=== PATIENT | female | born 1950 | race Caucasian/White ===

== ENCOUNTER 2017-03-20 20:10 | Emergency (ER) | payer OTHER ==
[2017-03-20] MEDS ORDERED: HYDROmorphone 1 MG/ML SYRINGE IM STA (20:19)
[2017-03-20] MEDS ORDERED: oxyCODONE/ACET 5/325 Prepack 4 PO STA (20:19)
[2017-03-20] MEDS ORDERED: TETANUS/DIPHTHERIA/PERTUSSIS 0.5 ML SYRINGE IM ONE (20:19)
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
[2017-03-20] MEDS ORDERED: oxyCODONE/ACET 5/325 Prepack 4 PO ONE (20:29)
[2017-03-20] MEDS ORDERED: HYDROmorphone 1 MG/ML SYRINGE ONE (20:29)
[2017-03-20 20:52] VITALS: BP 142/81
== END 2017-03-20 20:45 | disposition home or self-care (01) ==
LOC: ED 20:10
DX: T23.192A Burn of first degree of multiple sites of left wrist and hand, initial encounter (principal); T31.0 Burns involving less than 10% of body surface; X15.8XXA Contact with other hot household appliances, initial encounter; Y92.009 Unspecified place in unspecified non-institutional (private) residence as the place of occurrence of the external cause
CPT/HCPCS: 96372; 99282; 99283; J1170

== ENCOUNTER 2017-08-26 08:21 | Outpatient (CLI) | payer MEDICARE ==
[2017-08-26 13:08] LABS: ALBUMIN 4.1 g/dL (3.2-5.5); ALBUMIN/GLOBULIN RATIO 1.3 (1.0-2.2); BILIRUBIN,TOTAL 0.9 mg/dL (0.2-1.0); CALCIUM 8.9 mg/dL (8.5-10.3); CREATININE 0.8 mg/dL (0.4-1.0); TOTAL PROTEIN 7.2 g/dL (6.7-8.2)
[2017-08-26 13:11] LABS: HB2 TOTAL 15.6 g/dL; HEMOGLOBIN A1C 0.71 g/dL; HEMOGLOBIN A1C % 6.3 % (4.6-6.2)
== END 2017-08-26 08:22 | disposition home or self-care (01) ==
LOC: LAB.WCP 08:21
PROVIDERS: ATTEND Family Medicine
DX: D12.6 Benign neoplasm of colon, unspecified (principal); E78.5 Hyperlipidemia, unspecified; K50.90 Crohn's disease, unspecified, without complications; F98.8 Other specified behavioral and emotional disorders with onset usually occurring in childhood and adolescence; R73.03 Prediabetes
CPT/HCPCS: 36415; 80053; 83036

== ENCOUNTER 2018-03-25 14:35 | Outpatient (CLI) | payer MEDICARE ==
--- NOTE | 2018-03-28 09:30 | DEXA Report ---
Reason: ASYMPTOMATIC POSTMENOPAUSAL STATUS Procedure Date: 03/25/2018 Accession Number: [id number] / [id number] Procedure: DEX - Dexa Spine and/or Hip CPT Code: FULL RESULT: EXAM: Dexa Spine and/or Hip DATE: 03/25/2018 3:15 PM CLINICAL HISTORY: ASYMPTOMATIC POSTMENOPAUSAL STATUS TECHNIQUE: Dual energy x-ray absorptiometry (DXA) was performed on a [employer] System. Regions measured are the AP Spine, femoral neck, and if needed forearm. COMPARISON: None. In accordance with the International Society for Clinical Densitometry (ISCD) guidelines, data from previous exams may be reanalyzed using current recommendations and techniques. This is done to allow a more accurate basis for comparison with the current study. FINDINGS: The data for the lumbar spine is as follows: BMD (g/cm/cm) T-SCORE Z-SCORE REGION L1 0.960 -1.4 -0.7 L2 1.194 -0.1 0.7 L3 1.094 -0.9 -0.1 L4 1.159 -0.3 0.4 TOTAL 1.105 -0.6 0.1 NOTE: All evaluable vertebrae are used for classification The data for the hip is as follows: BMD (g/cm/cm) T-SCORE Z-SCORE REGION Neck 0.929 -0.8 0.2 TOTAL 1.041 0.3 0.9 NOTE: The femoral neck or total proximal femur, whichever is lowest, is used for classification. IMPRESSION: THE WHO CLASSIFICATION BASED ON THE INTERNATIONAL REFERENCE STANDARD IS NORMAL. THE FRACTURE RISK IS NOT INCREASED. RECOMMENDATION: Patients with diagnosis of osteoporosis or osteopenia should have regular bone mineral density assessment. For those eligible for Medicare, routine testing is allowed once every 2 years. Testing frequency can be increased for patients who have rapidly progressing disease or for those who are receiving medical therapy to restore bone mass. COMMENT: World Health Organization (WHO) definitions for osteoporosis and osteopenia: NORMAL BMD: T-score at -1.0 or higher, fracture risk is low OSTEOPENIA BMD: T-score between -1.0 and -2.5, fracture risk is increased. OSTEOPOROSIS BMD: T-score at -2.5 or lower, fracture risk is high. National Osteoporosis Foundation recommends: 1. Obtain adequate dietary calcium (at least 1200 mg per day) and vitamin D (400-800 international units per day). 2. Participate, as appropriate, in regular weightbearing and muscle-strengthening exercise. 3. Avoid tobacco use and reduce alcohol and caffeine intake. 4. For more detailed information see the website at www.NOF.org.
== END 2018-03-25 14:36 | disposition home or self-care (01) ==
LOC: DI 14:35
PROVIDERS: ATTEND Family Medicine
DX: Z78.0 Asymptomatic menopausal state (principal)
CPT/HCPCS: 77080

== ENCOUNTER 2018-10-27 08:00 | Outpatient (CLI) | payer MEDICARE ==
[2018-10-27 12:32] LABS: BASOPHILS # (AUTO) 0.1 10^3/uL (0.0-0.1); BASOPHILS % (AUTO) 0.5 %; EOSINOPHILS # (AUTO) 0.2 10^3/uL (0.0-0.7); EOSINOPHILS % (AUTO) 1.8 %; HGB - HEMOGLOBIN 13.6 g/dL (12.0-16.0); LYMPHOCYTES # (AUTO) 2.9 10^3/uL (1.5-3.5); LYMPHOCYTES % (AUTO) 30.6 %; MEAN CORPUSCULAR HEMOGLOBIN 29.9 pg (27.0-31.0); MEAN CORPUSCULAR HGB CONC 32.5 g/dL (32.0-36.0); MEAN CORPUSCULAR VOLUME 91.9 fL (81.0-99.0); MEAN PLATELET VOLUME 11.3 fL (7.9-10.8); MONOCYTES # (AUTO) 0.5 10^3/uL (0.0-1.0); MONOCYTES % (AUTO) 5.3 %; NEUTROPHILS # (AUTO) 5.9 10^3/uL (1.5-6.6); NEUTROPHILS % (AUTO) 61.5 %; PLT - PLATELET COUNT 330 10^3/uL (130-450); RED BLOOD COUNT 4.55 10^6/uL (4.20-5.40); RED CELL DISTRIBUTION WIDTH 12.5 % (12.0-15.0); WHITE BLOOD COUNT 9.6 x10^3/uL (4.8-10.8)
[2018-10-27 12:48] LABS: ALBUMIN 4.2 g/dL (3.2-5.5); ALBUMIN/GLOBULIN RATIO 1.3 (1.0-2.2); BILIRUBIN,TOTAL 0.7 mg/dL (0.2-1.0); CALCIUM 9.3 mg/dL (8.5-10.3); CREATININE 0.8 mg/dL (0.4-1.0); TOTAL PROTEIN 7.5 g/dL (6.7-8.2)
[2018-10-27 12:52] LABS: HB2 TOTAL 14.1 g/dL; HEMOGLOBIN A1C 0.69 g/dL; HEMOGLOBIN A1C % 6.6 % (4.6-6.2)
== END 2018-10-27 08:01 | disposition home or self-care (01) ==
LOC: LAB.WCP 08:00
PROVIDERS: ATTEND Family Medicine
DX: I10 Essential (primary) hypertension (principal); K50.90 Crohn's disease, unspecified, without complications; K76.0 Fatty (change of) liver, not elsewhere classified; R73.09 Other abnormal glucose
CPT/HCPCS: 36415; 80053; 82043; 83036; 84443; 85025

== ENCOUNTER 2018-12-02 13:58 | Emergency (ER) | payer MEDICARE ==
[2018-12-02] MEDS ORDERED: ERYTHROMYCIN OPHTH OINT 1 GM TUBE RIGHTEYE STA (15:49)
--- NOTE | 2018-12-02 15:57 | ED Physician Documentation ---
PD HPI OPHTHO - Stated complaint Stated Complaint: RT EYE PX - Chief complaint Chief Complaint: Heent - History obtained from History obtained from: Patient - History of Present Illness Timing - onset: How many hours ago (7) Timing - details: Still present Location: Right Associated symptoms: Decreased vision Contributing factors: Wears glasses Similar symptoms before: Has not had sx before - Additional information Additional information: The patient is a 67-year-old female who presents with pain in her right eye. The pain started about 8 AM today when she awoke. It has persisted throughout the day. She denies any traumatic injury. She denies headache. She denies nausea or vomiting. She normally wears glasses. She reports decreased vision in the right eye compared to usual. The pain is worse with movement of her eye. 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 - Present Medications Home Medications: Ambulatory Orders Medication Instructions Recorded Confirmed Methylphenidate HCl 40 mg ORAL DAILY 01/02/14 04/29/17 [Methylphenidate ER] Trazodone HCl 100 mg ORAL DAILY 01/02/14 04/29/17 Oxycodone HCl/Acetaminophen 1 - 2 tab PO Q4H PRN #15 tablet 03/20/17 04/29/17 [Percocet 5-325 mg Tablet] Cyclobenzaprine [Flexeril] 10 mg PO TID PRN #20 tablet 04/29/17 Meloxicam [Mobic] 15 mg PO DAILY PRN #20 tablet 04/29/17 metFORMIN [Glucophage] DAILY 04/29/17 Hydrocodone/Acetaminophen 1 - 2 each PO Q6H PRN #14 tablet 12/02/18 [Hydrocodon-Acetaminophen 5-325] Ketorolac 0.45% Ophth Drops 1 drops RIGHTEYE TID #1 bottle 12/02/18 [Acuvail] - Allergies Allergies/Adverse Reactions: Allergies Allergy/AdvReac Type Severity Reaction Status Date / Time Iodinated Contrast Media Allergy Hives Verified 12/02/18 14:05 [Iodinated Contrast Media - IV Dye] Sulfa (Sulfonamide Allergy Unknown Verified 12/02/18 14:05 Antibiotics) - Social History Does the pt smoke?: No Smoking Status: Never smoker Does the pt drink ETOH?: No Does the pt have substance abuse?: No - Immunizations Immunizations are current?: Yes - POLST Patient has POLST: No PD ED PE NORMAL - Vitals Vital signs reviewed: Yes (Borderline hypertension.) - General General: Alert and oriented X 3, Well developed/nourished - HEENT HEENT: Atraumatic, PERRL, EOMI, Other (Visual acuity in the right eye was initially reported as able to count fingers only. After administration of Ophthaine, the patient was able to visualize more clearly, and the pain completely resolved. Fluorescein stain and slit lamp exam reveals corneal abrasion of the cornea right across the pupil. Tonometry of the right eye reveals normal intraocular pressure of 20.) - Neck Neck: Supple, no meningeal sign, No adenopathy - Cardiac Cardiac: RRR - Respiratory Respiratory: No respiratory distress, Clear bilaterally - Derm Derm: No rash - Neuro Neuro: Alert and oriented X 3, No motor deficit, Normal speech Results - Vitals Vitals: Oxygen O2 Source Room air PD MEDICAL DECISION MAKING - ED course Complexity details: re-evaluated patient, considered differential, d/w patient ED course: The patient's presentation is significant for corneal abrasion of the right eye. With normal intraocular pressure acute angle closure glaucoma is unlikely. There is no foreign body detected on slit-lamp exam. I do not see evidence of iritis or uveitis. Treatment in the emergency department included administration of erythromycin ophthalmic ointment. She is being discharged with prescriptions for ketorolac ophthalmic suspension, and Vicodin 10 tablets. I discussed with her the expected course of injury, symptomatic treatment and outpatient follow-up, as well as potentially worrisome signs or symptoms that should prompt reevaluation in the emergency department. Departure - Departure Disposition: 01 Home, Self Care Clinical Impression: Corneal abrasion, right Qualifiers: Encounter type: initial encounter Qualified Code(s): S05.01XA - Injury of conjunctiva and corneal abrasion without foreign body, right eye, initial encounter Condition: Stable Instructions: ED Eye Injury Corneal Abrasion Prescriptions: Hydrocodone/Acetaminophen [Hydrocodon-Acetaminophen 5-325] 1 - 2 each PO Q6H PRN #14 tablet PRN Reason: pain Ketorolac 0.45% Ophth Drops [Acuvail] 1 drops RIGHTEYE TID #1 bottle Comments: Use ketorolac ophthalmic drops in your right eye 3 times daily. You can use Vicodin as prescribed if needed for pain. Follow-up with your field technical support consultant within 1 week. Call to schedule an appointment. Return to the emergency department if you develop increasing pain in your eye, decreasing visual acuity, or persistent vomiting, or otherwise worsening symptoms. Discharge Date/Time: 12/02/18 16:04
[2018-12-02 16:05] VITALS: BP 130/90
== END 2018-12-02 16:04 | disposition home or self-care (01) ==
LOC: ED 13:58
DX: S05.01XA Injury of conjunctiva and corneal abrasion without foreign body, right eye, initial encounter (principal); X58.XXXA Exposure to other specified factors, initial encounter; E11.9 Type 2 diabetes mellitus without complications; Z79.84 Long term (current) use of oral hypoglycemic drugs
CPT/HCPCS: 99282; 99284; J3490

== ENCOUNTER 2019-05-31 10:30 | Outpatient (CLI) | payer MEDICARE ==
[2019-05-31 18:36] LABS: CALCIUM 9.1 mg/dL (8.5-10.3); CREATININE 0.8 mg/dL (0.4-1.0)
[2019-05-31 18:45] LABS: HB2 TOTAL 14.2 g/dL; HEMOGLOBIN A1C 0.67 g/dL; HEMOGLOBIN A1C % 6.5 % (4.6-6.2)
== END 2019-05-31 23:59 | disposition home or self-care (01) ==
LOC: LAB.WCP 10:30
PROVIDERS: ATTEND Family Medicine
DX: R73.9 Hyperglycemia, unspecified (principal)
CPT/HCPCS: 36415; 80048; 83036

== ENCOUNTER 2019-06-06 14:15 | Outpatient (CLI) | payer MEDICARE ==
--- NOTE | 2019-06-06 15:33 | XRAY Report ---
Reason: COUGH Procedure Date: 06/06/2019 Accession Number: [id number] / [id number] Procedure: WCP - Chest 2 View X-Ray CPT Code: 65907 Final Report FULL RESULT: EXAM: CHEST RADIOGRAPHY EXAM DATE: 06/06/2019 02:15 PM. CLINICAL HISTORY: Cough, congestion and fever. COMPARISON: None. TECHNIQUE: 2 views. FINDINGS: Lungs/Pleura: No focal opacities evident. No pleural effusion. No pneumothorax. Normal volumes. Mediastinum: Heart and mediastinal contours are unremarkable. Other: None. IMPRESSION: Normal 2-view chest radiography. [facility]
== END 2019-06-06 23:59 | disposition home or self-care (01) ==
LOC: DI.WCP 14:15
PROVIDERS: ATTEND Family Medicine
DX: R05 Cough (principal)
CPT/HCPCS: 71046

== ENCOUNTER 2019-06-13 08:59 | Outpatient (CLI) | payer MEDICARE ==
[~2019-06-13 08:59] MED LIST: ALBUTEROL NEB 2.5 MG/3 ML INH ONE
== END 2019-06-13 09:00 | disposition home or self-care (01) ==
LOC: RT 08:59
PROVIDERS: ATTEND Family Medicine
DX: R05 Cough (principal)
CPT/HCPCS: 94010

== ENCOUNTER 2019-10-04 08:00 | Outpatient (CLI) | payer MEDICARE ==
[2019-10-12 00:21] LABS: STONE WEIGHT 0.001 g
== END 2019-10-04 23:59 | disposition home or self-care (01) ==
LOC: LAB.R 08:00
PROVIDERS: ATTEND Family Medicine
DX: N20.0 Calculus of kidney (principal)
CPT/HCPCS: 82365

== ENCOUNTER 2019-10-16 12:34 | Outpatient (CLI) | payer MEDICARE ==
--- NOTE | 2019-10-16 14:50 | MRI Report ---
PROCEDURE: Lumbar Spine W/O INDICATIONS: LUMBAR SPINAL STENOSIS TECHNIQUE: Noncontrast sagittal T1 spin echo and T2 fast echo, sagittal STIR, axial T1 and T2 fast spin echo thr ough the lumbar spine. In cases with scoliosis, additional coronal T2 fast spin echo may be performe d. COMPARISON: None. FINDINGS: Image quality: Excellent. Alignment and Curvature: Trace anterolisthesis of L4 on L5. Straightening of the normal lordotic curv ature. Bone Marrow: Scattered multilevel endplate spurring and diffuse facet arthropathy. No acute vertebral body compression fractures. Spinal Cord: Conus medullaris terminates at the L1 level. Visualized cord demonstrates normal signa l and size. Paraspinous Soft Tissues: No paravertebral masses. Posterior dependent subcutaneous soft tissue kaitlyn a seen at the level of L1-L3. 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 T12-L1: Normal in appearance. L1-L2: Normal in appearance. L2-L3: Subtle posterior annular fissure otherwise normal in appearance. L3-L4: Normal in appearance. L4-L5: Normal in appearance. L5-S1: No canal stenosis. Partial effacement of the left and right lateral recesses with symmetric ap pearance. No foraminal stenosis. IMPRESSION: Overall, no canal or foraminal stenosis. Trace anterolisthesis of L4 on L5 Straightening of the normal lordotic curvature. Reviewed by: Ascencion Cruz MD on 10/16/2019 2:49 PM PDT Approved by: Ascencion Cruz MD on 10/16/2019 2:49 PM PDT Station ID: [id number]
== END 2019-10-16 12:35 | disposition home or self-care (01) ==
LOC: DI 12:34
PROVIDERS: ATTEND Family Medicine
DX: M43.16 Spondylolisthesis, lumbar region (principal); M47.816 Spondylosis without myelopathy or radiculopathy, lumbar region
CPT/HCPCS: 72148

== ENCOUNTER 2020-06-11 07:00 | Outpatient (CLI) | payer MEDICARE ==
[2020-06-11 11:36] LABS: BASOPHILS % (AUTO) 0.5 %; EOSINOPHILS # (AUTO) 0.2 10^3/uL (0.0-0.7); EOSINOPHILS % (AUTO) 2.4 %; HCT - HEMATOCRIT 40.8 % (37.0-47.0); HGB - HEMOGLOBIN 13.5 g/dL (12.0-16.0); LYMPHOCYTES # (AUTO) 2.8 10^3/uL (1.5-3.5); LYMPHOCYTES % (AUTO) 34.8 %; MEAN CORPUSCULAR HEMOGLOBIN 30.3 pg (27.0-31.0); MEAN CORPUSCULAR HGB CONC 33.1 g/dL (32.0-36.0); MEAN CORPUSCULAR VOLUME 91.5 fL (81.0-99.0); MEAN PLATELET VOLUME 11.5 fL (7.9-10.8); MONOCYTES # (AUTO) 0.5 10^3/uL (0.0-1.0); MONOCYTES % (AUTO) 6.2 %; NEUTROPHILS # (AUTO) 4.5 10^3/uL (1.5-6.6); PLT - PLATELET COUNT 281 10^3/uL (130-450); RED BLOOD COUNT 4.46 10^6/uL (4.20-5.40); RED CELL DISTRIBUTION WIDTH 12.9 % (12.0-15.0); WHITE BLOOD COUNT 8.1 x10^3/uL (4.8-10.8)
[2020-06-11 12:37] LABS: ALBUMIN 3.9 g/dL (3.2-5.5); ALBUMIN/GLOBULIN RATIO 1.1 (1.0-2.2); ALKALINE PHOSPHATASE 90 IU/L (42-121); ALT ALANINE AMINOTRANSFERASE 28 IU/L (10-60); AST ASPARTATE AMINOTRANSFERASE 21 IU/L (10-42); BILIRUBIN,TOTAL 0.7 mg/dL (0.2-1.0); BUN - BLOOD UREA NITROGEN 14 mg/dL (6-20); CALCIUM 9.5 mg/dL (8.5-10.3); CARBON DIOXIDE - CO2 24 mmol/L (21-32); CHLORIDE 103 mmol/L (101-111); CHOL/HDL RATIO 2.8 (<4.4); CHOLESTEROL 179 mg/dL; CREATININE 0.9 mg/dL (0.4-1.0); GFR - MDRD 62 (>89); GLUCOSE 260 mg/dL (70-100); HDL CHOLESTEROL 64 mg/dL; LDL CHOLESTEROL,CALCULATED 73 mg/dL; LDL/HDL RATIO 1.1 (<4.4); SODIUM 139 mmol/L (135-145); TOTAL PROTEIN 7.4 g/dL (6.7-8.2); TRIGLYCERIDES 208 mg/dL; VLDL CHOLESTEROL 42 mg/dL
[2020-06-11 12:41] LABS: CREATININE,URINE 141.3 mg/dL; MICROALBUMIN,URINE 1.7 mg/dL (0-300.0)
[2020-06-11 13:06] LABS: THYROID STIMULATING HORMONE 1.56 uIU/mL (0.34-5.60)
[2020-06-11 13:11] LABS: ESTIMATED AVERAGE GLUCOSE 229 mg/dL (70-100); HEMOGLOBIN A1c% 9.6 % (4.27-6.07)
[2020-06-13 13:27] LABS: ALBUMIN 3.9 g/dL (3.8-4.8); ALPHA 1 GLOBULIN 0.3 g/dL (0.2-0.3); ALPHA 2 GLOBULIN 0.8 g/dL (0.5-0.9); BETA 1 GLOBULIN 0.5 g/dL (0.4-0.6); BETA 2 GLOBULIN 0.5 g/dL (0.2-0.5)
== END 2020-06-11 23:59 | disposition home or self-care (01) ==
LOC: LAB.WCP 07:00
PROVIDERS: ATTEND Internal Medicine
DX: I10 Essential (primary) hypertension (principal); E11.42 Type 2 diabetes mellitus with diabetic polyneuropathy
CPT/HCPCS: 36415; 80053; 80061; 81599; 82043; 82570; 82607; 83036; 83721; 84155; 84165; 84207; 84443; 85025; 86334

== ENCOUNTER 2020-06-21 09:47 | Outpatient (CLI) | payer MEDICARE ==
--- NOTE | 2020-06-21 15:26 | MRI Report ---
PROCEDURE: Angio Brain W/O (MRA) INDICATIONS: FAM HIST OF BRAIN ANEURYSM W/ STROKE TECHNIQUE: Noncontrast axial 3-D [id number] MR angiogram, with 3-dimensional maximum intensity projection (M IP) reformats of the internal carotid arteries and posterior circulation then performed. COMPARISON: None. FINDINGS: Image quality: Excellent. Anterior circulation: Intracranial internal carotid arteries demonstrate normal size and intralumina l flow signal. The flow within the paired anterior cerebral arteries is normal and symmetric. The f low within the middle cerebral arteries is normal and symmetric. The anterior communicating artery i s seen. No stenoses, occlusions, or aneurysms. Posterior circulation: Visualized portions of the vertebral arteries demonstrate normal caliber, and join to form a normal appearing basilar artery. The flow within the posterior cerebral arteries is normal and symmetric. No stenoses, occlusions, or aneurysms. IMPRESSION: Negative cerebral MR angiography. Reviewed by: Gay Thompson MD on 06/21/2020 2:25 PM [place] Approved by: Gay Thompson MD on 06/21/2020 2:25 PM [facility] Station ID: [id number]
== END 2020-06-21 09:48 | disposition home or self-care (01) ==
LOC: DI 09:47
PROVIDERS: ATTEND Internal Medicine
DX: Z13.6 Encounter for screening for cardiovascular disorders (principal); Z82.3 Family history of stroke; Z91.041 Radiographic dye allergy status

== ENCOUNTER 2020-06-27 10:48 | Outpatient (CLI) | payer MEDICARE ==
[2020-06-27 11:22] VITALS: BP 124/79
--- NOTE | 2020-06-27 11:22 | SLEEP CARE CONSULTATION ---
Information from patient questionnaire entered by Alexandria Alcazar. I have reviewed and concur with the information entered by Alexandria Alcazar. This document represents the service I personally performed and the decisions made by me, Sonia Godinez ARNP. History of Present Illness Service Date and Time: 06/27/2020 1048 Reason for Visit: New patient, Previously diagnosed sleep apnea (mild - AHI - 7.4), Re-establish care (last seen 12/2006) Chief Complaint: reports: Unrefreshed sleep, Snoring, Excessive daytime sleepiness, Observed pauses in breathing, Fatigue Date of Onset: many years Usual bedtime: 12 am Time it takes to fall asleep: 15-30 minutes Snores at night: Yes Observed to quit breathing while asleep: Yes Toss, Turn, or Twitch while sleeping: Yes Recalls having dreams: Yes Usually gets out of bed at: 9 am or so Feels refreshed in the morning: No Morning headache: No Sleepy or fatigued during the day: Yes Ever fallen asleep while driving: No Takes day naps: Yes (tries not to nap; 1 time a week or so) Dreams during day naps: No Prior sleep studies: Yes Year and Where: 2006 - [facility] Type of Sleep Study: Polysomnography Additional HPI information: WOOD BRODERICK was diagnosed to have mild, AHI 7.4 in 2006, obstructive sleep apnea-hypopnea syndrome and comes in to re-establish care. She is not currently on a CPAP machine. She did try to use a CPAP machine for about 6 months but were unable to tolerate it and stopped on her own. She did try to sleep on her side for a while but has been unable to stay off of her back. She was referred by after seeing her orthotic technician to re-explore use of the CPAP machine for her apnea as it might benefit her heart. - Parasomnia Symptoms Ever been unable to move upon waking from sleep: No Walks in sleep: No Talks in sleep: No Ever acted out dreams in sleep: No Ever felt weak in the knees when startled or emotional: No Bothered by creepy, crawly, restless sensations in legs: Yes Problems with memory or concentration: No Subjective Initial [place] Sleepiness Scale score: 13 (in 2006) Current [place] Sleepiness Scale score: 15 Past Medical History Past Medical History: reports: Hypertension, Diabetes, Arthritis, Other (chronic fatigue syndrome, spinal stenosis, apnea; chron's in remission) Social History The patient's occupation is a Retired. Patient is Single and lives in [place]. Have you smoked in the past 12 months: No Alcohol use: Yes Alcohol amount and frequency: 1 glass 2-3 times a year Caffeine use: Yes Caffeine amount and frequency: 3 a day Family History Family history of sleep disordered breathing: No Allergies and Home Medications Drug allergies reviewed: Yes (contrast dye, Sulfa drugs) Home medication list reviewed: Yes Allergy and home medication list: Metformin 500 mg, 4 each day Atorvastatin 10 mg daily Losartan 50 mg daily Trazadone 100 mg nightly Gabapentin 300 mg 3 each day Cyclobenzaprine 10 mg, prn Review of Systems Cardiovascular: reports: high blood pressure Respiratory: reports: chronic cough Gastrointestinal: reports: diarrhea Urinary: reports: incontinence Ear/Nose/Throat: reports: dry mouth/throat, wisdom teeth removed. denies: tonsillectomy Endocrine: reports: sluggishness, excessive thirst Musculoskeletal: reports: joint pain, back pain Physical Exam Blood Pressure: 124/79 Cuff size: wrist Heart Rate: 77 O2 Saturation: 98 Height: 5 ft 2 in Weight: 205 lb Body Mass Index: 37.5 BMI Classification: Obese Heart: regular rate and rhythm Lungs: clear bilaterally Impression and Plan 1. Suspected Obstructive Sleep Apnea-Hypopnea Syndrome, as previously diagnosed in 2006 and as suggested by a history of loud and irregular snoring, observed cessation of breath while asleep, gasping or choking in sleep, unrefreshed sleep, and excessive daytime sleepiness. She did try CPAP years ago but was unable to tolerate it, states she took the mask off during the night while sleeping. We will have to have her complete another sleep study to verify diagnosis and to assess severity. She voiced understanding and agreement to plan. The pathophysiology of obstructive sleep apnea-hypopnea syndrome was discussed with the patient and health risks of cardiovascular and cerebrovascular disease if not treated. Risks of drowsy driving discussed in detail and patient advised to avoid long distance driving and to lung puller at the first sign of drowsiness. Patient agreed to plan. * Schedule polysomnography +- manual CPAP titration study and return in 1-2 weeks after the study to discuss result and initiate therapy. * Avoid long distance driving or driving when feeling sleepy. * Avoid alcohol, sedative and muscle relaxant around bedtime. * Attempt to lose weight. * Review instructions provided by trained office staff on how to prepare for the sleep study. * Return for follow-up after sleep study completed. Counseling Topics: Weight loss health impact Visit Type: In Office Time Spent with Patient (minutes): 31 Provider Statement: I spent 100% of the Face to Face Visit with the patient with greater than 50% spent counseling the patient and coordination of care.
== END 2020-06-27 10:49 | disposition home or self-care (01) ==
LOC: SC 10:48
PROVIDERS: ATTEND Nurse Practitioner Family
DX: G47.33 Obstructive sleep apnea (adult) (pediatric) (principal); E66.9 Obesity, unspecified; Z68.37 Body mass index [BMI] 37.0-37.9, adult
CPT/HCPCS: 99203; G0463; 99212

== ENCOUNTER 2020-07-19 12:57 | Outpatient (CLI) | payer MEDICARE | END 2020-07-19 12:58 | disposition home or self-care (01) | LOC: SC 12:57 | PROVIDERS: ATTEND Nurse Practitioner Family | DX: G47.33 Obstructive sleep apnea (adult) (pediatric) (principal); R09.02 Hypoxemia | CPT/HCPCS: G0399 ×2; 95806 ==

== ENCOUNTER 2020-08-06 09:49 | Outpatient (CLI) | payer MEDICARE ==
[2020-08-06 13:45] LABS: CALCIUM 9.3 mg/dL (8.5-10.3); CREATININE 0.8 mg/dL (0.4-1.0)
[2020-08-06 13:56] LABS: ESTIMATED AVERAGE GLUCOSE 192 mg/dL (70-100); HEMOGLOBIN A1c% 8.3 % (4.27-6.07)
== END 2020-08-06 09:50 | disposition home or self-care (01) ==
LOC: LAB.N 09:49
PROVIDERS: ATTEND Internal Medicine
DX: E11.42 Type 2 diabetes mellitus with diabetic polyneuropathy (principal)
CPT/HCPCS: 36415; 80048; 83036

== ENCOUNTER 2020-08-08 12:35 | Outpatient (CLI) | payer MEDICARE ==
--- NOTE | 2020-08-09 09:36 | Mammography Report ---
BILATERAL DIGITAL SCREENING MAMMOGRAM 3D/2D: 08/08/2020 CLINICAL: Routine screening. Comparison is made to exams dated: 04/03/2016 mammogram, 02/23/2014 mammogram, 11/27/2011 mammogram, a nd 11/24/2010 mammogram - [facility]. The tissue of both breasts is predominantly fa tty. No significant masses, calcifications, or other findings are seen in either breast. There has been no significant interval change. IMPRESSION: NEGATIVE There is no mammographic evidence of malignancy. A 1 year screening mammogram is recommended. This exam was interpreted at Station ID: [id number]. NOTE: For mammograms, a report in lay terms will be sent to the patient. Approximately 15% of breast malignancies will not be visualized mammographically. In the management of a palpable breast mass, a negative mammogram must not discourage biopsy of a clinically suspicious lesion. Electronically Signed By: Mario Leo acr/penrad:08/08/2020 15:03:19 ACR BI-RADS Category 1: Negative 3341F PARENCHYMAL PATTERN: (F) - The breast(s) demonstrate(s) diffuse fatty replacement. BI-RADS CATEGORY: (1) - 1 RECOMMENDATION: (ANNUAL) - Recommend routine annual screening mammography. [id number] 1 year screening LATERALITY: (B)
== END 2020-08-08 12:36 | disposition home or self-care (01) ==
LOC: DI.N 12:35
PROVIDERS: ATTEND Internal Medicine
DX: Z12.31 Encounter for screening mammogram for malignant neoplasm of breast (principal)

== ENCOUNTER 2020-08-08 13:47 | Outpatient (CLI) | payer MEDICARE ==
--- NOTE | 2020-08-08 14:17 | SLEEP CARE CONSULTATION ---
Information from patient questionnaire entered by Denise Louie. I have reviewed and concur with the information entered by Denise Louie. This document represents the service I personally performed and the decisions made by me, Sonia Godinez ARNP. History of Present Illness Service Date and Time: 08/08/2020 1347 Initial [place] Sleepiness Scale score: 13 (in 2006) Current [place] Sleepiness Scale score: 12 Additional HPI information: WOOD BRODERICK returns for follow up and results of the recently performed home sleep study. I explained the pathophysiology behind obstructive sleep apnea. We then spent quite a bit of time discussing different treatment options. For mild obstructive sleep apnea, surgery and oral appliance are alternatives to nasal CPAP therapy but in moderate or severe cases, nasal CPAP is the most effective and reliable treatment. Because apnea is primarily in supine position, then positional management therapy could be effective. Methods discussed such as positioning with pillows, using a T-shirt with tennis balls in the back, and shown commercial products that have a pillow format on back to prevent supine sleep. I reviewed the impact of weight changes on sleep apnea and strongly recommended losing weight. After some discussion, the patient opted to go with the nasal CPAP therapy. Nasal autoCPAP set at 4-15 cmH20 will be ordered with rationale explained. A manual titration study will be ordered if unable to find optimal pressure with office adjustments. I explained how CPAP machine works with sample devices [employer] Dreamstation and [employer] [id number] and what to expect when using the machine. Using CPAP every night in order to get used to it was emphasized. Patient advised to put CPAP mask on before getting into bed so as not to fall asleep without CPAP. To assist acclimation to CPAP use, it could also be used for a short time during day while reading or watching TV. The patient was instructed to call the CPAP supplier to discuss any mechanical problem that may occur. If the mask given is uncomfortable or is difficult to keep on through the night even with adjustment, contact the CPAP supplier as many will replace with another mask style if notified before 30 days. If snoring or perceives is not getting enough air or too much air from the machine, notify this office. [facility] patient education PAP tips reviewed and given to patient. Patient does not drink alcohol. Patient was cautioned about risks of drowsy driving until sleepiness symptoms resolve. Sleep Study - Results Type of Sleep Study: Home sleep study Prior sleep studies: Yes Year and Where: 2006 - [facility] Sleep Polysomnography/Home Sleep Study results: Physician Impression: The quality of the study is good. The length of the study is adequate (> 240 minutes). Please also see the tabulated and graphic data. 1. Obstructive Sleep Apnea-Hypopnea (ICD-10 G47.33), moderate, with an AHI of 23.1/hr and gabriel SaO2 of 83%. During the study, the patient had 145 apneas (145 obstructive, 0 central, 0 mixed) and 57 hypopneas. The longest episode lasted 94.0 seconds. The respiratory events occurred more frequently during supine sleep (supine AHI was 31.0 and non-supine, 13.21). 2. Hypoxemia (ICD-10 R09.02), mild, with the lowest oxygen saturation of 83 % and 11.3 minutes with SaO2 under 90%. Baseline oxygen saturation was normal (Average oxygen saturation was 93%). Allergies and Home Medications Home medication list reviewed: Yes (no new meds) Review of Systems Review of systems same as previous: Yes (no changes) Physical Exam Heart Rate: 87 O2 Saturation: 97 Height: 5 ft 2 in Weight: 204 lb Body Mass Index: 37.3 BMI Classification: Obese Impression and Plan 1. Obstructive Sleep Apnea-Hypopnea Syndrome, moderate, with lowest oxygen saturation of 83%. Obviously this is the cause of the patients symptoms of unrefreshed sleep, and excessive daytime sleepiness. Positive pressure therapy could benefit hypertension, diabetes and fibromyalgia. She did try a CPAP in the past and took the mask off during the night when asleep. She would like to try to see if she can tolerate it better now. As mentioned above, the patient will be started on nasal autoCPAP therapy with pressure set at 4-15 cmH2O. A manual titration study will be completed if unable to find optimal treatment pressure with office adjustments. Compliance guidelines also reviewed. A copy of compliance guidelines will be given for reference at check out. Because the apnea is more severe supine, I instructed to avoid sleeping supine using pillow positioning until able to start CPAP use. * Nasal auto CPAP therapy, pressure at 4-15 cm H2O. * Attempt to lose weight. * Avoid alcohol consumption near bedtime. * Avoid supine sleep until using CPAP. * The patient is again cautioned about driving until sleepiness completely resolves. * Return one month after CPAP obtained. I will assess response to therapy and compliance at that time. Counseling Topics: Weight loss health impact Visit Type: In Office Time Spent with Patient (minutes): 20 Provider Statement: I spent 100% of the Face to Face Visit with the patient with greater than 50% spent counseling the patient and coordination of care.
== END 2020-08-08 13:48 | disposition home or self-care (01) ==
LOC: SC 13:47
PROVIDERS: ATTEND Nurse Practitioner Family
DX: G47.33 Obstructive sleep apnea (adult) (pediatric) (principal); E66.9 Obesity, unspecified; Z68.37 Body mass index [BMI] 37.0-37.9, adult
CPT/HCPCS: 99213; G0463; 99212

== ENCOUNTER 2020-10-04 11:05 | Outpatient (CLI) | payer MEDICARE ==
--- NOTE | 2020-10-04 11:27 | SLEEP CARE CONSULTATION ---
Information from patient questionnaire entered by Alexandria Alcazar. I have reviewed and concur with the information entered by Alexandria Alcazar. This document represents the service I personally performed and the decisions made by , Sonia Godinez ARNP. History of Present Illness Service Date and Time: 10/04/2020 1105 Previous diagnosis: Moderate, Obstructive Sleep Apnea-Hypopnea Syndrome AHI: 23.1 (in 2020)(7.4 in 2006) Reason for follow up: first compliance Equipment type: CPAP Equipment obtained from: [employer] (got initial supplies) Mask style: Nasal Backup mask available: No (will keep old mask when replaced) Last cushion change: 1 month Prior sleep studies: Yes Year and Where: 2020 and 2006 (PSG) - [facility] Sleep Type of Sleep Study: Home sleep study HPI additional information: WOOD BRODERICK was diagnosed to have moderate, AHI 23.1, obstructive sleep apnea-hypopnea syndrome and returned today for CPAP therapy first compliance follow-up. CPAP Compliance Data - Data Reviewed with Patient Average duration of nightly device use: 5 hr 12 min Compliance rate %: 73 Current pressure setting (cmH2O): 4-15 (median 7.0, avg 10.5, max 11.7) Humidity settin Average residual AHI: 2.3 Subjective Patient concerns: reports: mask discomfort (doesn't like things on her face). denies: aerophagia, air blowing in eyes, mask leak noise, condensation in mask/hose, nasal congestion, dry mouth, nose, throat, epistaxis, other Observed to snore while using device: No (sleeps alone) Current pressure setting perceived as: comfortable On therapy, patient: reports: other (still getting used to it). denies: sleeping better, awakening more refreshed, being more awake and alert during the day, more rested overall, drowsiness while driving Initial [place] Sleepiness Scale score: 13 (in 2006) Current [place] Sleepiness Scale score: 11 Allergies and Home Medications Home medication list reviewed: Yes (no new meds) Review of Systems Review of systems same as previous: Yes (no changes) Physical Exam Heart Rate: 88 O2 Saturation: 97 Height: 5 ft 2 in Weight: 199 lb Body Mass Index: 36.3 BMI Classification: Obese Impression and Plan 1. Obstructive Sleep Apnea-Hypopnea Syndrome, moderate, with good treatment compliance and good apnea control. On CPAP therapy, the patient does not feel that she is feeling better or more rested overall. Patient does intend to continue using the CPAP to try and get better used to it as well as the good benefits for her heart and diabetes. The patients pressure will be changed to autoCPAP 7-12 cmH20. Patient advised to contact me if pressure change is un comfortable so that it can be adjusted. Goals for apnea control discussed. Patient's apnea severity and rationale for treatment to reduce apnea, improve sleep quality and reduce cardiovascular and cerebrovascular events was reviewed. I also reviewed the benefit of consistent device use of CPAP for hypertension, diabetes, and fibromyalgia. * Change auto CPAP pressure to 7-12 cmH2O * Notify me if snoring with mask or feeling that the pressure is too much or too little * Attempt to lose weight * Call this office if any problems using CPAP * Return for follow up in 1-2 months, or sooner if concerns arise Counseling Topics: Spare mask, Weight loss health impact Visit Type: In Office Time Spent with Patient (minutes): 14 Provider Statement: I spent 100% of the Face to Face Visit with the patient with greater than 50% spent counseling the patient and coordination of care.
== END 2020-10-04 11:06 | disposition home or self-care (01) ==
LOC: SC 11:05
PROVIDERS: ATTEND Nurse Practitioner Family
DX: G47.33 Obstructive sleep apnea (adult) (pediatric) (principal); E66.9 Obesity, unspecified; Z68.36 Body mass index [BMI] 36.0-36.9, adult
CPT/HCPCS: 99212; G0463

== ENCOUNTER 2020-11-11 08:00 | Outpatient (CLI) | payer MEDICARE ==
[2020-11-11 12:40] LABS: ESTIMATED AVERAGE GLUCOSE 186 mg/dL (70-100); HEMOGLOBIN A1c% 8.1 % (4.27-6.07)
[2020-11-11 13:04] LABS: BUN - BLOOD UREA NITROGEN 17 mg/dL (6-20); CALCIUM 9.4 mg/dL (8.5-10.3); CARBON DIOXIDE - CO2 24 mmol/L (21-32); CHLORIDE 104 mmol/L (101-111); CHOL/HDL RATIO 3.2 (<4.4); CHOLESTEROL 162 mg/dL; CREATININE 0.8 mg/dL (0.4-1.0); GFR - MDRD 71 (>89); GLUCOSE 174 mg/dL (70-100); HDL CHOLESTEROL 50 mg/dL; LDL CHOLESTEROL,CALCULATED 74 mg/dL; LDL/HDL RATIO 1.5 (<4.4); SODIUM 138 mmol/L (135-145); TRIGLYCERIDES 189 mg/dL; VLDL CHOLESTEROL 38 mg/dL
== END 2020-11-11 23:59 | disposition home or self-care (01) ==
LOC: LAB.WCP 08:00
PROVIDERS: ATTEND Internal Medicine
DX: E11.40 Type 2 diabetes mellitus with diabetic neuropathy, unspecified (principal)
CPT/HCPCS: 36415; 80048; 80061; 83036; 83721

== ENCOUNTER 2020-11-29 10:50 | Outpatient (CLI) | payer MEDICARE ==
--- NOTE | 2020-11-29 11:21 | SLEEP CARE CONSULTATION ---
Information from patient questionnaire entered by Alexandria Alcazar. I have reviewed and concur with the information entered by Alexandria Alcazar. This document represents the service I personally performed and the decisions made by , Sonia Godinez ARNP. History of Present Illness Service Date and Time: 11/29/2020 1050 Previous diagnosis: Moderate, Obstructive Sleep Apnea-Hypopnea Syndrome AHI: 23.1 (in 2020)(7.4 in 2006) Reason for follow up: other (2 month with pressure change) Equipment type: CPAP Equipment obtained from: [employer] (no more supplies yet) Mask style: Nasal Mask brand: Resmed ([id number]) Backup mask available: No (will keep old mask when replaced) Prior sleep studies: Yes Year and Where: 2020 and 2006 (PSG) - [facility] Sleep Type of Sleep Study: Home sleep study HPI additional information: WOOD BRODERICK was diagnosed to have moderate, AHI 23.1, obstructive sleep apnea-hypopnea syndrome and returned today for CPAP therapy 2 month pressure change follow-up. CPAP Compliance Data - Data Reviewed with Patient Average duration of nightly device use: 4 hr 56 min Compliance rate %: 73 (60 days) Current pressure setting (cmH2O): 7-12 Humidity settin Average residual AHI: 2.1 Subjective Missed days of use due to: reports: other (insomnia) Patient concerns: denies: aerophagia, mask discomfort, air blowing in eyes, mask leak noise, condensation in mask/hose, nasal congestion, dry mouth, nose, throat, epistaxis, other Observed to snore while using device: No (sleeps alone) Current pressure setting perceived as: comfortable On therapy, patient: reports: sleeping better, awakening more refreshed, being more awake and alert during the day, more rested overall. denies: drowsiness while driving Initial [place] Sleepiness Scale score: 13 (in 2006) Current [place] Sleepiness Scale score: 9 Allergies and Home Medications Home medication list reviewed: Yes (no changes) Review of Systems Review of systems same as previous: Yes (no changes) Physical Exam Heart Rate: 75 O2 Saturation: 97 Height: 5 ft 2 in Weight: 201 lb Body Mass Index: 36.7 BMI Classification: Obese Impression and Plan 1. Obstructive Sleep Apnea-Hypopnea Syndrome, moderate, with fair treatment compliance and good apnea control. On CPAP therapy, the patient has better sleep quality and is more rested overall. She has not been getting anymore supplies. She signed up for automatic shipments online but has not gotten any supplies. She was encouraged to call to order supplies and touch base with [employer] about their process for automatic shipments. Patient has not issues except she needs a new mask and filters. Patient's apnea severity and rationale for treatment to reduce apnea, improve sleep quality and reduce cardiovascular and cerebrovascular events was reviewed. I also reviewed the benefit of consistent device use of CPAP for hypertension, diabetes, and fibromyalgia. * Continue autoCPAP pressure at 7-12 cmH2O * Notify me if snoring with mask or feeling that the pressure is too much or too little * Attempt to lose weight * Call this office if any problems using CPAP * Return for follow up in 6 months, or sooner if concerns arise Counseling Topics: Spare mask, Weight loss health impact Visit Type: In Office Time Spent with Patient (minutes): 15 Provider Statement: I spent 100% of the Face to Face Visit with the patient with greater than 50% spent counseling the patient and coordination of care.
== END 2020-11-29 10:51 | disposition home or self-care (01) ==
LOC: SC 10:50
PROVIDERS: ATTEND Nurse Practitioner Family
DX: G47.33 Obstructive sleep apnea (adult) (pediatric) (principal); E66.9 Obesity, unspecified; Z68.36 Body mass index [BMI] 36.0-36.9, adult
CPT/HCPCS: 99212; G0463

== ENCOUNTER 2021-02-07 09:54 | Outpatient (CLI) | payer MEDICARE ==
[2021-02-07 12:25] LABS: CALCIUM 9.2 mg/dL (8.5-10.3); CREATININE 0.8 mg/dL (0.4-1.0); POTASSIUM 4.2 mmol/L (3.5-5.0)
[2021-02-07 12:43] LABS: ESTIMATED AVERAGE GLUCOSE 131 mg/dL (70-100); HEMOGLOBIN A1c% 6.2 % (4.27-6.07)
== END 2021-02-07 23:59 | disposition home or self-care (01) ==
LOC: LAB.WCP 09:54
PROVIDERS: ATTEND Internal Medicine
DX: E11.42 Type 2 diabetes mellitus with diabetic polyneuropathy (principal)
CPT/HCPCS: 36415; 80048; 83036

== ENCOUNTER 2021-09-05 10:11 | Outpatient (CLI) | payer MEDICARE ==
[2021-09-05 12:23] LABS: BASOPHILS % (AUTO) 0.5 %; EOSINOPHILS # (AUTO) 0.2 10^3/uL (0.0-0.7); EOSINOPHILS % (AUTO) 1.9 %; HCT - HEMATOCRIT 43.8 % (37.0-47.0); HGB - HEMOGLOBIN 14.1 g/dL (12.0-16.0); LYMPHOCYTES # (AUTO) 3.1 10^3/uL (1.5-3.5); MEAN CORPUSCULAR HEMOGLOBIN 30.1 pg (27.0-31.0); MEAN CORPUSCULAR HGB CONC 32.2 g/dL (32.0-36.0); MEAN CORPUSCULAR VOLUME 93.4 fL (81.0-99.0); MEAN PLATELET VOLUME 11.1 fL (7.9-10.8); MONOCYTES # (AUTO) 0.6 10^3/uL (0.0-1.0); MONOCYTES % (AUTO) 7.2 %; NEUTROPHILS # (AUTO) 4.5 10^3/uL (1.5-6.6); PLT - PLATELET COUNT 307 10^3/uL (130-450); RED BLOOD COUNT 4.69 10^6/uL (4.20-5.40); RED CELL DISTRIBUTION WIDTH 13.1 % (12.0-15.0); WHITE BLOOD COUNT 8.5 x10^3/uL (4.8-10.8)
[2021-09-05 13:01] LABS: CREATININE,URINE 177.8 mg/dL; MICROALBUMIN,URINE 3.2 mg/dL (0-300.0)
[2021-09-05 13:20] LABS: ALBUMIN 4.2 g/dL (3.2-5.5); ALBUMIN/GLOBULIN RATIO 1.2 (1.0-2.2); ALKALINE PHOSPHATASE 82 IU/L (42-121); ALT ALANINE AMINOTRANSFERASE 39 IU/L (10-60); AST ASPARTATE AMINOTRANSFERASE 32 IU/L (10-42); BILIRUBIN,TOTAL 0.8 mg/dL (0.2-1.0); BUN - BLOOD UREA NITROGEN 16 mg/dL (6-20); CALCIUM 9.6 mg/dL (8.5-10.3); CARBON DIOXIDE - CO2 24 mmol/L (21-32); CHLORIDE 108 mmol/L (101-111); CHOL/HDL RATIO 2.3 (<4.4); CHOLESTEROL 148 mg/dL; CREATININE 0.9 mg/dL (0.4-1.0); GFR - MDRD 62 (>89); GLUCOSE 157 mg/dL (70-100); HDL CHOLESTEROL 63 mg/dL; LDL CHOLESTEROL,CALCULATED 61 mg/dL; POTASSIUM 4.7 mmol/L (3.5-5.0); SODIUM 139 mmol/L (135-145); TOTAL PROTEIN 7.6 g/dL (6.7-8.2); TRIGLYCERIDES 119 mg/dL; VLDL CHOLESTEROL 24 mg/dL
[2021-09-05 13:23] LABS: ESTIMATED AVERAGE GLUCOSE 143 mg/dL (70-100); HEMOGLOBIN A1c% 6.6 % (4.27-6.07)
[2021-09-05 13:26] LABS: THYROID STIMULATING HORMONE 1.7 uIU/mL (0.34-5.60)
== END 2021-09-05 10:12 | disposition home or self-care (01) ==
LOC: LAB.N 10:11
PROVIDERS: ATTEND Internal Medicine
DX: E11.42 Type 2 diabetes mellitus with diabetic polyneuropathy (principal); I10 Essential (primary) hypertension; Z86.59 Personal history of other mental and behavioral disorders
CPT/HCPCS: 36415; 80053; 80061; 82043; 82570; 83036; 83721; 84443; 85025

== ENCOUNTER 2021-10-02 11:22 | Outpatient (CLI) | payer MEDICARE ==
[2021-10-02 12:09] VITALS: BP 136/93
--- NOTE | 2021-10-02 12:09 | SLEEP CARE CONSULTATION ---
Information from patient questionnaire entered by Nisha Kan MA. I have reviewed and concur with the information entered by Nisha Kan MA. This document represents the service I personally performed and the decisions made by , Sonia Godinez ARNP. History of Present Illness Service Date and Time: 10/02/2021 1122 Previous diagnosis: Moderate, Obstructive Sleep Apnea-Hypopnea Syndrome AHI: 23.1 (in 2020)(7.4 in 2006) Reason for follow up: other (8 MONTH F/U, RESMED, MCLEOD , ) Equipment type: CPAP Equipment obtained from: [employer] (getting supplies but it is difficult to deal with online ordering) Mask style: Nasal Backup mask available: Yes (other mask) Last cushion change: 2 weeks ago Prior sleep studies: Yes Year and Where: 2020 and 2006 (PSG) - [facility] Type of Sleep Study: Home sleep study HPI additional information: WOOD BRODERICK was diagnosed to have moderate, AHI 23.1, obstructive sleep apnea-hypopnea syndrome and returned today for CPAP therapy eight month follow- up. Sleep Study - Results Type of Sleep Study: Home sleep study Prior sleep studies: Yes Year and Where: 2020 and 2006 (PSG) - [facility] CPAP Compliance Data - Data Reviewed with Patient Average duration of nightly device use: 3 HOURS 49 MINUTES Compliance rate %: 37 (180 days; 164/180 usage; 37%) Current pressure setting (cmH2O): 7-12 Average residual AHI: 2.0 Central apnea: .3 Obstructive apnea: 1.5 Hypopnea: .1 Average large leak: 8.4 Subjective Missed days of use due to: reports: mask issues Patient concerns: reports: mask discomfort (needs to tighten headgear). denies: aerophagia, air blowing in eyes, mask leak noise, condensation in mask/hose, nasal congestion, dry mouth, nose, throat, epistaxis, other Observed to snore while using device: No Current pressure setting perceived as: comfortable On therapy, patient: reports: sleeping better, awakening more refreshed, being more awake and alert during the day, more rested overall. denies: drowsiness while driving Initial [place] Sleepiness Scale score: 13 (in 2006) Current [place] Sleepiness Scale score: 12 (10/02/2021) Allergies and Home Medications Known drug allergies: Yes (CONTRAST DYE SULFA, ) Home medication list reviewed: Yes (Gabapentin for back and occipital neuralgia) Allergy and home medication list: Allergies Iodinated Contrast Media [Iodinated Contrast Media - IV Dye] Allergy (Verified 12/02/18 14:05) Hives Sulfa (Sulfonamide Antibiotics) Allergy (Verified 12/02/18 14:05) Unknown Review of Systems Review of systems same as previous: Yes (no changes) Physical Exam Vital signs obtained and entered by: Fidencio KAN CMA AATX Blood Pressure: 136/93 (PULSE 101, RESP 20, LEFT) Heart Rate: 93 O2 Saturation: 96 (N94) Height: 5 ft 2 in Weight: 200 lb (CLOTHES) Body Mass Index: 36.6 BMI Classification: Obese Impression and Plan 1. Obstructive Sleep Apnea-Hypopnea Syndrome, moderate, with poor treatment compliance and good apnea control. On CPAP therapy, the patient has better sleep quality and is more rested overall. Patient states the nasal cushion mask has to be tightened down to stay on her face. She is still not real comfortable with the mask on her face and will put it on when she can tell she is about to fall asleep, otherwise it my keep her awake. Patient states that she has a lot of sleeping issues. She can go to sleep but will wake up during the night and not be able to go back to sleep. She does have trazodone that was prescribed to help her stay asleep but uses it sparingly. She states if it is 0200 in the morning, nothing will help her go to sleep. I advised her to use her trazodone more consistently to see if nightly used, instead of sporadic use, will help her to get more sleep at night. She voiced understanding and agreement. Patient's apnea severity and rationale for treatment to reduce apnea, improve sleep quality and reduce cardiovascular and cerebrovascular events was reviewed. I also reviewed the benefit of consistent device use of CPAP for hypertension, diabetes and fibromyalgia. * Continue auto CPAP pressure at 7-12 cmH2O * Notify me if snoring with mask or feeling that the pressure is too much or too little * Attempt to lose weight * Call this office if any problems using CPAP * Return for follow up in 3 months, or sooner if concerns arise Counseling Topics: Spare mask, Weight loss health impact Visit Type: In Office Time Spent with Patient (minutes): 27 Provider Statement: I spent 100% of the Face to Face Visit with the patient with greater than 50% spent counseling the patient and coordination of care.
== END 2021-10-02 11:23 | disposition home or self-care (01) ==
LOC: SC 11:22
PROVIDERS: ATTEND Nurse Practitioner Family
DX: G47.33 Obstructive sleep apnea (adult) (pediatric) (principal); E66.9 Obesity, unspecified; Z68.36 Body mass index [BMI] 36.0-36.9, adult
CPT/HCPCS: 99213; G0463; 99212

== ENCOUNTER 2021-11-14 10:33 | Outpatient (CLI) | payer MEDICARE ==
--- NOTE | 2021-11-14 14:09 | Mammography Report ---
UNILATERAL LEFT DIGITAL DIAGNOSTIC MAMMOGRAM 3D/2D: 11/14/2021 CLINICAL: Patient returns today to evaluate a focal asymmetry in the left breast. Comparison is made to exams dated: 10/30/2021 mammogram, 08/08/2020 mammogram, 04/03/2016 mammogram, a nd 02/23/2014 mammogram - [facility]. The tissue of left breast is predominantly fa tty. There is a 7 mm oval equal density focal asymmetry with a circumscribed margin in the left breast at 3 o'clock middle depth. This is seen in additional views. No other significant masses or calcifications are seen in the breast. IMPRESSION: INCOMPLETE: NEEDS ADDITIONAL IMAGING EVALUATION The 7 mm asymmetry in the left breast is confirmed with additional views and remains indeterminate. An ultrasound is recommended. This was performed immediately following this exam. Based on the Tyrer Cuzick model (a risk assessment model) the patients lifetime risk is 2.1% and her 10 year risk is 1.2%. According to the ACR, ACS, and NCCN guidelines, an annual breast MRI exam marisa g with mammogram is recommended if the patients lifetime risk is 20% or greater. This exam was interpreted at Station ID: [id number]. NOTE: For mammograms, a report in lay terms will be sent to the patient. Approximately 15% of breast malignancies will not be visualized mammographically. In the management of a palpable breast mass, a negative mammogram must not discourage biopsy of a clinically suspicious lesion. Electronically Signed By: Ricarda velazquez/:11/14/2021 11:25:13 ACR BI-RADS Category 0: Incomplete 3340F PARENCHYMAL PATTERN: (F) - The breast(s) demonstrate(s) diffuse fatty replacement. BI-RADS CATEGORY: (0) - 0 Ultrasound [id number] Immediate follow-up LATERALITY: (B)
--- NOTE | 2021-11-14 14:09 | Ultrasound Report ---
LIMITED ULTRASOUND OF LEFT BREAST: 11/14/2021 CLINICAL: Patient returns today to evaluate a focal asymmetry in the left breast. Comparison is made to exams dated: 11/14/2021 mammogram, 10/30/2021 mammogram, 08/08/2020 mammogram, mammogram, 02/23/2014 mammogram, and 11/27/2011 mammogram - [facility]. Color flow ultrasound of the left breast 2-3 o'clock region was performed. Lyons scale images of the real-time examination were reviewed. There is a 0.4 cm x 0.5 cm x 0.3 cm oval cyst with a smooth internal wall in the left breast at 2 o'c lock posterior depth 6 cm from the nipple. This oval cyst is anechoic. This correlates well with ma mmography findings. Color flow imaging demonstrates that there is no vascularity present. IMPRESSION: BENIGN There is no sonographic evidence of malignancy. The 0.5 cm oval cyst in the left breast corresponding to the mammogram finding is consistent with a s imple cyst and is benign. Return to annual mammogram screening schedule is recommended. Findings and recommendations were conveyed to the patient at time of exam. This exam was interpreted at Station ID: [id number]. Electronically Signed By: Ricarda velazquez/:11/14/2021 13:03:18 Ultrasound BI-RADS: 2 Benign BI-RADS CATEGORY: (2) - 2 Mammogram [id number] return to screening LATERALITY: (B)
== END 2021-11-14 10:34 | disposition home or self-care (01) ==
LOC: DI 10:33
PROVIDERS: ATTEND Internal Medicine
DX: N60.02 Solitary cyst of left breast (principal)

== ENCOUNTER 2022-01-07 13:13 | Outpatient (CLI) | payer MEDICARE ==
--- NOTE | 2022-01-08 15:35 | MRI Report ---
PROCEDURE: Knee RT W/O INDICATIONS: INSTABILTY OF RIGHT KNEE TECHNIQUE: Noncontrast sagittal PD fast spin echo and T2 fast spin echo with fat saturation, sagittal 3-D gradie nt sequence with fat saturation; coronal T1 spin echo and PD fast spin echo with fat saturation, and axial PD fast spin echo with fat saturation through the knee. COMPARISON: X-ray right knee, 12/08/2021. FINDINGS: Image quality: Excellent. Menisci: There is horizontal tear of the body and posterior horn the medial meniscus involving into t he posterior root. In addition, there is a small radial tear in the free edge of the body of the medi al meniscus. The lateral meniscus demonstrates normal morphology and internal signal. Cruciate ligaments: Chronic partial tear or scarring of the distal anterior cruciate ligament. The p osterior cruciate ligament is intact. Medial structures: There is grade 1 sprain of the medial collateral ligament. The semimembranosus te ndon insertions and meniscocapsular junction appear intact. Visualized portions of the pes anserinus tendons appear normal. No abnormal bursal fluid. Lateral structures: The lateral collateral ligament, long and short heads of the biceps femoris tend on appear intact. The popliteus tendon appears normal. Iliotibial band appears normal. Anterior structures: The quadriceps and patellar tendons are intact. Low-grade quadriceps and gandhi lar tendinitis. Patellar alignment is normal. No femoral trochlear dysplasia or ventral trochlear pr ominence. No edema in the infrapatellar fat pad. Bones and cartilage: No bone marrow contusions or fractures. 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 There is also moderate chondromalacia in the medial and lateral femorotibial compartments. A full-t hickness cartilage fissure in the medial femoral condyle. Joint space: There is small knee joint effusion. No Patel's cyst. Normal appearing synovial plicae are incidentally noted. IMPRESSION: 1. Medial meniscal tear. There is a large horizontal tear involving the posterior horn and body exten ding to the posterior root. In addition, there is a small radial tear involving the body. 2. Chronic partial tear/scarring of the distal ACL. 3. Grade 1 MCL sprain. 4. Severe chondromalacia patella. 5. Moderate cartilage thinning and fibrillation of the femorotibial compartment. There is a 4-thickne ss cartilage fissure in the medial femoral condyle. 6. Small knee joint effusion. Reviewed by: Almita Holliday MD on 01/08/2022 3:34 PM PDT Approved by: Almita Holliday MD on 01/08/2022 3:34 PM PDT Station ID: [id number]
== END 2022-01-07 13:14 | disposition home or self-care (01) ==
LOC: DI 13:13
PROVIDERS: ATTEND Internal Medicine
DX: S83.241A Other tear of medial meniscus, current injury, right knee, initial encounter (principal); S83.511A Sprain of anterior cruciate ligament of right knee, initial encounter; S83.411A Sprain of medial collateral ligament of right knee, initial encounter; M22.41 Chondromalacia patellae, right knee; M94.8X6 Other specified disorders of cartilage, lower leg; M25.461 Effusion, right knee

== ENCOUNTER 2022-02-03 10:22 | Outpatient (CLI) | payer MEDICARE ==
[2022-02-03 12:21] LABS: CALCIUM 9.5 mg/dL (8.5-10.3); CREATININE 0.9 mg/dL (0.4-1.0)
[2022-02-03 13:29] LABS: ESTIMATED AVERAGE GLUCOSE 123 mg/dL (70-100); HEMOGLOBIN A1c% 5.9 % (4.27-6.07)
== END 2022-02-03 10:23 | disposition home or self-care (01) ==
LOC: LAB.N 10:22
PROVIDERS: ATTEND Internal Medicine
DX: E11.42 Type 2 diabetes mellitus with diabetic polyneuropathy (principal)
CPT/HCPCS: 36415; 80048; 83036

== ENCOUNTER 2022-06-11 06:05 | Outpatient (CLI) | payer MEDICARE | END 2022-06-11 23:59 | disposition critical access hospital (66) | LOC: EMS 06:05 | DX: M25.561 Pain in right knee (principal); R53.1 Weakness; W06.XXXA Fall from bed, initial encounter; Y92.003 Bedroom of unspecified non-institutional (private) residence as the place of occurrence of the external cause; Z96.651 Presence of right artificial knee joint | CPT/HCPCS: A0425; A0427 ==

== ENCOUNTER 2022-06-11 06:20 | Emergency (ER) | payer MEDICARE ==
--- NOTE | 2022-06-11 07:06 | ED Physician Documentation ---
PD HPI Fall - Stated complaint Stated Complaint: GLF - Chief complaint Chief Complaint: Ext Problem - History obtained from History obtained from: Patient, EMS - History of Present Illness Mechanism of injury: Tripped (she was trying to get from bed to bathroom using walker and states legs gave out, feeling weak, and daughter states the patient seemed confused and sluggish thinking.) Fall distance: Standing position Where injury occurred: Home Timing - onset: Today Injury(ies) location: Other (patient is 2 days post partial knee replacement by Dr. Wheeler at [facility]. She was home same day. Has been using walker and did okay the first day home. Seeming confused and weak last night and today, and daughter concerned about ability to walk safely. Slumped/fell today,). No: Head, Neck, Chest, Abdomen Quality of pain: Throbbing (pain in right knee with swelling and tenderness worse than the day of surgery. No other injured areas today.), Aching Associated symptoms: No: LOC, AMS, Weakness, Abdominal distension Symptoms improve with: Rest Worsens with: Movement Contributing factors: Anticoagulated (low dose lovenox 40 mg daily for 10 days to reduce chance of dvt.). No: Intoxicated Similar symptoms before: Has not had sx before Recently seen: Surgery (2 days ago at [facility], knee surgery right knee for replacement.) Review of Systems Constitutional: denies: Fever, Chills Nose: denies: Rhinorrhea / runny nose, Congestion Throat: denies: Sore throat Respiratory: denies: Cough GI: denies: Abdominal Pain PD PAST MEDICAL HISTORY - Past Medical History Past Medical History: Yes Cardiovascular: None Respiratory: Sleep apnea Endocrine/Autoimmune: Type 2 diabetes GI: Crohn's disease : Kidney stones Psych: Depression Musculoskeletal: Fatigue, Chronic back pain, Other - Past Surgical History Past Surgical History: Yes General: Colonoscopy Ortho: Knee replacement /[employer]: section - Present Medications Home Medications: Ambulatory Orders Medication Instructions Recorded Confirmed Oxycodone HCl/Acetaminophen 1 - 2 tab PO Q4H PRN #15 tablet 03/20/17 06/11/22 [Percocet 5-325 mg Tablet] Atorvastatin [Lipitor] 10 mg PO DAILY 06/11/22 06/11/22 Cetirizine [ZyrTEC] 10 mg PO DAILY #15 tablet 06/11/22 Losartan/Hydrochlorothiazide 50 mg PO DAILY 06/11/22 06/11/22 [Hyzaar 50-12.5 Tablet] Naproxen 250 mg PO BID 10 Days #20 tablet 06/11/22 Semaglutide [Ozempic] 0.5 mg SQ OAW 06/11/22 06/11/22 Trazodone HCl 100 mg PO HS 06/11/22 06/11/22 oxyCODONE [Roxicodone] 5 mg PO Q6H PRN #15 tablet 06/11/22 - Allergies Allergies/Adverse Reactions: Allergies Allergy/AdvReac Type Severity Reaction Status Date / Time Iodinated Contrast Media Allergy Hives Verified 06/11/22 06:34 [Iodinated Contrast Media - IV Dye] Sulfa (Sulfonamide Allergy Unknown Verified 06/11/22 06:34 Antibiotics) - Social History Does the pt smoke?: No Smoking Status: Never smoker Does the pt drink ETOH?: No Does the pt have substance abuse?: No - Immunizations Immunizations are current?: Yes - POLST Patient has POLST: No PD ED PE NORMAL - Vitals Vital signs reviewed: Yes - General General: Alert and oriented X 3, No acute distress, Well developed/nourished - HEENT HEENT: Pharynx benign - Neck Neck: Supple, no meningeal sign, No bony TTP, No adenopathy - Cardiac Cardiac: RRR, No murmur - Respiratory Respiratory: No respiratory distress, Clear bilaterally - Abdomen Abdomen: Soft, Non tender - Derm Derm: Normal color, Warm and dry - Extremities Extremities: Other (right knee with moderate effusion. anterior sutures/tape in place. Slow roM is okay, but patient not moving that leg quickly at all. ) - Neuro Neuro: Alert and oriented X 3, No motor deficit, No sensory deficit, Other (she is somewhat somnolent and answers questions sluggishly. ) Results - Vitals Vitals: Vital Signs - 24 hr 06/11/22 06/11/22 06/11/22 06:23 07:41 09:17 Temperature 37.7 C Heart Rate 92 90 84 Respiratory 18 18 18 Rate Blood Pressure 156/92 H 140/76 H 113/60 O2 Saturation 99 95 98 06/11/22 06/11/22 06/11/22 11:30 13:02 15:17 Temperature Heart Rate 83 80 86 Respiratory 18 18 18 Rate Blood Pressure 131/71 H 106/61 104/84 H O2 Saturation 93 93 95 Oxygen O2 Source Room air - Labs Labs: Laboratory Tests 06/11/22 06/11/22 06/11/22 07:40 07:40 09:15 WBC 12.0 H RBC 4.73 Hgb 14.3 Hct 43.5 MCV 92.0 MCH 30.2 MCHC 32.9 RDW 12.7 Plt Count 278 MPV 10.2 Neut # (Auto) 8.5 H Lymph # (Auto) 2.2 Chambers # (Auto) 1.1 H Eos # (Auto) 0.1 Baso # (Auto) 0.1 Absolute Nucleated RBC 0.00 Nucleated RBC % 0.0 Sodium 138 Potassium 3.9 Chloride 103 Carbon Dioxide 23 Anion Gap 12.0 BUN 15 Creatinine 1.0 Estimated GFR (MDRD) 55 L Glucose 154 H Calcium 9.2 Magnesium 2.1 Total Bilirubin 1.1 H AST 24 ALT 28 Alkaline Phosphatase 77 Total Protein 7.6 Albumin 3.8 Globulin 3.8 Albumin/Globulin Ratio 1.0 Lipase 29 Urine Color YELLOW Urine Clarity CLEAR Urine pH 6.0 Ur Specific Williams 1.015 Urine Protein NEGATIVE Urine Glucose (UA) NEGATIVE Urine Ketones 15 H Urine Occult Blood NEGATIVE Urine Nitrite NEGATIVE Urine Bilirubin NEGATIVE Urine Urobilinogen 0.2 (NORMAL) Ur Leukocyte Esterase NEGATIVE Ur Microscopic Review NOT INDICATED Urine Culture Comments NOT INDICATED PD Medical Decision Making - ED course Complexity details: reviewed results, re-evaluated patient (she seems less tired/sluggish after being her 1-2 hours. reasonable concern tyhat she was overmedicated with the Oxycodone along with the hyudroxyzine. ), considered differential, d/w patient, d/w family (daughter who gives independent information on recent surgery and medicaiton list and patient's activity level. ) ED course: I believe she was overmedication with the combo osycodone and the vistaril for n ausea/itch. Patient states she was not getting itching from meds. Can stop the hydroxyzine, and give cetirizine instead if needed antiemetic. She did get more alert and normally conversant after 1-2 hours, c/w med effect. given some pain med dilaudid here with improved pain and able to take short walk around the room/pradhan. Nursing felt she was not optimally using the walker, so suggested we get pt to do some teaching. PT was able to come but not until early afternoon. Patient remained comfortable in ER until that. Daughter was questioning what other types of aid/placement were possible. Social Work consulted and discussed options with them, but would apparently need to be out of pocket expense per SW. Family declined placement at rehab facility and will take her home. Departure - Departure Disposition: 01 Home, Self Care Clinical Impression: Acute postoperative pain of right knee, Altered mental status Condition: Stable Record reviewed to determine appropriate education?: Yes Follow-Up: Narciso Wheeler DO [Physician No Access] - Prescriptions: Naproxen 250 mg PO BID 10 Days #20 tablet oxyCODONE [Roxicodone] 5 mg PO Q6H PRN #15 tablet PRN Reason: Pain Cetirizine [ZyrTEC] 10 mg PO DAILY #15 tablet Comments: We did have physical therapy try to help show you use of the walker little bit better. I think your difficulty with mentation earlier was related to a combination of the oxycodone with a hydroxyzine. Both can be sedating and cause some level of confusion. I would have you discontinue the hydroxyzine. If you did have any feeling of some mild nausea or itchiness, use cetirizine every 6-8 hours instead if needed. This would be a milder version of an antihistamine and should not be sedating. Use Tylenol every 4-6 hours regularly for pain or the oxycodone/acetaminophen if needed for worse pain as prescribed by orthopedist. I would suggest you add on a mild anti-inflammatory of naproxen 250 mg twice daily with food. This small dosing should be okay with your other medicines etc. I sent prescription to your preferred pharmacy. You can use a wrap around the knee to help with some of the swelling. Follow-up with orthopedics as planned. Discharge Date/Time: 06/11/22 15:20
[2022-06-11] MEDS ORDERED: KETOROLAC 15 MG/ML VIAL IVP STA (07:28)
[2022-06-11 07:52] LABS: BASOPHILS # (AUTO) 0.1 10^3/uL (0.0-0.1); BASOPHILS % (AUTO) 0.5 %; EOSINOPHILS # (AUTO) 0.1 10^3/uL (0.0-0.7); HCT - HEMATOCRIT 43.5 % (37.0-47.0); HGB - HEMOGLOBIN 14.3 g/dL (12.0-16.0); LYMPHOCYTES # (AUTO) 2.2 10^3/uL (1.5-3.5); MEAN CORPUSCULAR HEMOGLOBIN 30.2 pg (27.0-31.0); MEAN CORPUSCULAR HGB CONC 32.9 g/dL (32.0-36.0); MEAN PLATELET VOLUME 10.2 fL (7.9-10.8); MONOCYTES # (AUTO) 1.1 10^3/uL (0.0-1.0); MONOCYTES % (AUTO) 8.9 %; NEUTROPHILS # (AUTO) 8.5 10^3/uL (1.5-6.6); NEUTROPHILS % (AUTO) 71.2 %; PLT - PLATELET COUNT 278 10^3/uL (130-450); RED BLOOD COUNT 4.73 10^6/uL (4.20-5.40); RED CELL DISTRIBUTION WIDTH 12.7 % (12.0-15.0)
[2022-06-11 08:01] LABS: ALBUMIN 3.8 g/dL (3.2-5.5); BILIRUBIN,TOTAL 1.1 mg/dL (0.2-1.0); CALCIUM 9.2 mg/dL (8.5-10.3); MAGNESIUM 2.1 mg/dL (1.7-2.8); POTASSIUM 3.9 mmol/L (3.5-5.0); TOTAL PROTEIN 7.6 g/dL (6.7-8.2)
[2022-06-11 09:23] LABS: BILIRUBIN,URINE NEGATIVE (NEGATIVE); GLUCOSE, URINE (UA) NEGATIVE (NEGATIVE); KETONES,URINE (UA) 15 mg/dL (NEGATIVE); LEUKOCYTE ESTERASE, URINE NEGATIVE (NEGATIVE); NITRITE,URINE NEGATIVE (NEGATIVE); OCCULT BLOOD,URINE NEGATIVE (NEGATIVE); PROTEIN,URINE NEGATIVE (NEGATIVE); UROBILINOGEN,URINE 0.2 (NORMAL) E.U./dL (NORMAL)
[2022-06-11 09:24] LABS: CLARITY,URINE CLEAR (CLEAR)
[2022-06-11] MEDS ORDERED: HYDROmorphone 1 MG/ML CARPUJECT IVP STA (10:01)
[2022-06-11] MEDS ORDERED: ACETAMINOPHEN 325 MG TABLET PO STA (10:01)
[2022-06-11 15:17] VITALS: BP 104/84
== END 2022-06-11 15:20 | disposition home or self-care (01) ==
LOC: EDUNIT# → ED 06:20
DX: G89.18 Other acute postprocedural pain (principal); M25.561 Pain in right knee; R41.82 Altered mental status, unspecified; W01.0XXA Fall on same level from slipping, tripping and stumbling without subsequent striking against object, initial encounter; Y92.9 Unspecified place or not applicable; E11.9 Type 2 diabetes mellitus without complications; Z79.899 Other long term (current) drug therapy; Z79.84 Long term (current) use of oral hypoglycemic drugs; Z79.51 Long term (current) use of inhaled steroids
CPT/HCPCS: 36415; 51701; 80053; 81003; 83690; 83735; 85025; 96374; 96375; 99284; A9270; J1170; 81001; 87086

== ENCOUNTER 2022-07-24 08:49 | Outpatient (CLI) | payer MEDICARE ==
[2022-07-24 11:36] LABS: BASOPHILS # (AUTO) 0.1 10^3/uL (0.0-0.1); BASOPHILS % (AUTO) 0.7 %; EOSINOPHILS # (AUTO) 0.4 10^3/uL (0.0-0.7); EOSINOPHILS % (AUTO) 3.7 %; HCT - HEMATOCRIT 44.3 % (37.0-47.0); HGB - HEMOGLOBIN 14.4 g/dL (12.0-16.0); LYMPHOCYTES # (AUTO) 3.7 10^3/uL (1.5-3.5); LYMPHOCYTES % (AUTO) 35.4 %; MEAN CORPUSCULAR HEMOGLOBIN 30.3 pg (27.0-31.0); MEAN CORPUSCULAR HGB CONC 32.5 g/dL (32.0-36.0); MEAN CORPUSCULAR VOLUME 93.1 fL (81.0-99.0); MEAN PLATELET VOLUME 11.1 fL (7.9-10.8); MONOCYTES # (AUTO) 0.7 10^3/uL (0.0-1.0); MONOCYTES % (AUTO) 6.6 %; NEUTROPHILS # (AUTO) 5.6 10^3/uL (1.5-6.6); NEUTROPHILS % (AUTO) 53.4 %; PLT - PLATELET COUNT 356 10^3/uL (130-450); RED BLOOD COUNT 4.76 10^6/uL (4.20-5.40); RED CELL DISTRIBUTION WIDTH 13.2 % (12.0-15.0); WHITE BLOOD COUNT 10.5 x10^3/uL (4.8-10.8)
[2022-07-24 12:14] LABS: ALBUMIN 4.2 g/dL (3.2-5.5); ALBUMIN/GLOBULIN RATIO 1.4 (1.0-2.2); ALKALINE PHOSPHATASE 85 IU/L (42-121); ALT ALANINE AMINOTRANSFERASE 30 IU/L (10-60); AST ASPARTATE AMINOTRANSFERASE 23 IU/L (10-42); BILIRUBIN,TOTAL 0.8 mg/dL (0.2-1.0); BUN - BLOOD UREA NITROGEN 12 mg/dL (6-20); CALCIUM 9.3 mg/dL (8.5-10.3); CARBON DIOXIDE - CO2 27 mmol/L (21-32); CHLORIDE 110 mmol/L (101-111); CHOL/HDL RATIO 2.6 (<4.4); CHOLESTEROL 151 mg/dL; CREATININE 0.9 mg/dL (0.4-1.0); GFR - MDRD 62 (>89); GLUCOSE 147 mg/dL (70-100); HDL CHOLESTEROL 58 mg/dL; LDL CHOLESTEROL,CALCULATED 67 mg/dL; LDL/HDL RATIO 1.2 (<4.4); POTASSIUM 3.9 mmol/L (3.5-5.0); SODIUM 141 mmol/L (135-145); TOTAL PROTEIN 7.3 g/dL (6.7-8.2); TRIGLYCERIDES 129 mg/dL; VLDL CHOLESTEROL 26 mg/dL
[2022-07-24 12:18] LABS: ESTIMATED AVERAGE GLUCOSE 123 mg/dL (70-100); HEMOGLOBIN A1c% 5.9 % (4.27-6.07)
== END 2022-07-24 08:50 | disposition home or self-care (01) ==
LOC: LAB.N 08:49
PROVIDERS: ATTEND Internal Medicine
DX: I10 Essential (primary) hypertension (principal); E78.5 Hyperlipidemia, unspecified; E11.42 Type 2 diabetes mellitus with diabetic polyneuropathy
CPT/HCPCS: 36415; 80053; 80061; 82043; 82570; 83036; 83721; 85025

== ENCOUNTER 2022-07-28 08:00 | Outpatient (CLI) | payer MEDICARE ==
[2022-07-28 12:23] LABS: CREATININE,URINE 225.3 mg/dL; MICROALBUM/CREATININE RATIO,UR 3.1 ug/mg (<30.0); MICROALBUMIN,URINE 0.7 mg/dL (0-300.0)
== END 2022-07-28 23:59 | disposition home or self-care (01) ==
LOC: LAB.N 08:00
PROVIDERS: ATTEND Internal Medicine
DX: E11.42 Type 2 diabetes mellitus with diabetic polyneuropathy (principal)
CPT/HCPCS: 82043; 82570

== ENCOUNTER 2022-08-04 12:54 | Outpatient (CLI) | payer MEDICARE ==
[2022-08-04 13:37] VITALS: BP 128/78
--- NOTE | 2022-08-04 13:37 | SLEEP CARE CONSULTATION ---
Information from patient questionnaire entered by Marie Grande. I have reviewed and concur with the information entered by Marie Grande. This document represents the service I personally performed and the decisions made by me, Sonia Godinez ARNP. History of Present Illness Service Date and Time: 08/04/2022 1254 Previous diagnosis: Moderate, Obstructive Sleep Apnea-Hypopnea Syndrome AHI: 23.1 (in 2020)(7.4 in 2006) Reason for follow up: six month (F/U) Equipment type: CPAP (Resmed Airsense 10, s/u 07/2020) Equipment obtained from: [employer] (getting supplies) Mask style: Nasal Backup mask available: Yes (old mask) Last cushion change: 1 month Prior sleep studies: Yes Year and Where: 2020 and 2006 (PSG) - [facility] Type of Sleep Study: Home sleep study HPI additional information: WOOD BRODERICK was diagnosed to have moderate, AHI 23.1, obstructive sleep apnea-hypopnea syndrome and returned today for CPAP therapy six month follow-up. Sleep Study - Results Type of Sleep Study: Home sleep study Prior sleep studies: Yes Year and Where: 2020 and 2006 (PSG) - [facility] CPAP Compliance Data - Data Reviewed with Patient Average duration of nightly device use: 4 hours 16 minutes Compliance rate %: 37 (146/180 days used) Current pressure setting (cmH2O): 8-12 (avg 10.0, max 10.5) Average residual AHI: 2.1 Central apnea: 0.4 Obstructive apnea: 1.5 Hypopnea: 0.1 Average large leak: 2.3 lpm Subjective Missed days of use due to: reports: other (pain at night due to knee/surgery; sometimes she can't go back to sleep after waking up at night) Patient concerns: reports: air blowing in eyes. denies: aerophagia, mask discomfort, mask leak noise, condensation in mask/hose, nasal congestion, dry mouth, nose, throat, epistaxis Observed to snore while using device: No (does not know) Current pressure setting perceived as: comfortable On therapy, patient: reports: sleeping better, awakening more refreshed, more rested overall. denies: drowsiness while driving Initial [place] Sleepiness Scale score: 13 (in 2006) Current [place] Sleepiness Scale score: 9 (08/04/22) Allergies and Home Medications Known drug allergies: Yes (as listed) Drug allergies reviewed: Yes Home medication list reviewed: Yes (Tramadol, prn pain) Allergy and home medication list: Allergies Iodinated Contrast Media [Iodinated Contrast Media - IV Dye] Allergy (Verified 08/03/22 09:10) Hives Sulfa (Sulfonamide Antibiotics) Allergy (Verified 08/03/22 09:10) Unknown Review of Systems Review of systems same as previous: No (Right partial knee surgery) Physical Exam Vital signs obtained and entered by: MARIE Murillo MA Blood Pressure: 128/78 (LEFT ARM) Cuff size: regular Heart Rate: 86 O2 Saturation: 98 Height: 5 ft 2 in Weight: 189 lb Weight change since last visit: 6 lb loss Body Mass Index: 34.5 BMI Classification: Obese Impression and Plan 1. Obstructive Sleep Apnea-Hypopnea Syndrome, moderate, with fair treatment compliance and good apnea control. On CPAP therapy, the patient has better sleep quality and is more rested overall. She feels the benefit when using her CPAP and is trying to use it every day. She has had a recent knee surgery and is still having pain waking her up at night and she is unable to go back to sleep which is contributing to her lower compliance numbers. She was advised to try to use her CPAP for at leat 4 hours a night to increase her compliance. She is still getting some air leaking into her eye, especially the one on the right. She did try a sleeping mask but felt she could still feel the air leaking on her eyes. She would like to try a different mask and I showed her a nasal pillow mask, the Airfit P30i. She would like to try this one, I wrote for a mask fitting for her for this mask. She voiced understanding. Patient's apnea severity and rationale for treatment to reduce apnea, improve sleep quality and reduce cardiovascular and cerebrovascular events was reviewed. I also reviewed the benefit of consistent device use of CPAP for hypertension, diabetes and fibromyalgia. 2. Obesity, unspecified. Currently patients BMI is 34.5. She has lost about 6 lbs. She was started on Ozempic recently for her diabetes. Obesity increases the risk of apnea, CPAP pressure requirements and overall health risks especially cardiovascular and diabetes. Thus patient is advised to continue to try to lose weight. * Continue auto CPAP pressure at 8-12 cmH2O * Mask fitting for a Resmed Airfit P30i to help reduce air leaking into her eyes * Notify me if snoring with mask or feeling that the pressure is too much or too little * Attempt to lose weight * Call this office if any problems using CPAP * Return for follow up in 1 year, or sooner if concerns arise Counseling Topics: Spare mask, Weight loss health impact Visit Type: In Office Time Spent with Patient (minutes): 21 Provider Statement: I spent 100% of the Face to Face Visit with the patient with greater than 50% spent counseling the patient and coordination of care.
== END 2022-08-04 12:55 | disposition home or self-care (01) ==
LOC: SC 12:54
PROVIDERS: ATTEND Nurse Practitioner Family
DX: G47.33 Obstructive sleep apnea (adult) (pediatric) (principal); E66.9 Obesity, unspecified; Z68.34 Body mass index [BMI] 34.0-34.9, adult
CPT/HCPCS: 99213; G0463; 99212

== ENCOUNTER 2022-11-16 11:08 | Outpatient (CLI) | payer MEDICARE ==
--- NOTE | 2022-11-17 11:22 | Mammography Report ---
BILATERAL DIGITAL SCREENING MAMMOGRAM 3D/2D: 11/16/2022 CLINICAL: Routine screening. Comparison is made to exams dated: 11/14/2021 ultrasound, 11/14/2021 mammogram, 10/30/2021 mammogram, mammogram, 04/03/2016 mammogram, and 02/23/2014 mammogram - [facility]. There are scattered areas of fibroglandular density in both breasts (category b / 25%-50% glandular t issue). There are regional heterogeneous calcifications in the right breast central to the nipple posterior d epth. These are more prominent and increased in number. No other significant masses, calcifications, or other findings are seen in either breast. IMPRESSION: INCOMPLETE: NEEDS ADDITIONAL IMAGING EVALUATION The regional heterogeneous calcifications in the right breast are indeterminate. Diagnostic mammogra m for additional views to include mediolateral and spot magnification views is recommended. Based on the Tyrer Cuzick model (a risk assessment model) the patients lifetime risk is 3.1% and her 10 year risk is 1.9%. According to the ACR, ACS, and NCCN guidelines, an annual breast MRI exam marisa g with mammogram is recommended if the patients lifetime risk is 20% or greater. This exam was interpreted at Station ID: [id number]. NOTE: For mammograms, a report in lay terms will be sent to the patient. Approximately 15% of breast malignancies will not be visualized mammographically. In the management of a palpable breast mass, a negative mammogram must not discourage biopsy of a clinically suspicious lesion. Electronically Signed By: Anant Law M.D. aty/:11/16/2022 20:05:04 ACR BI-RADS Category 0: Incomplete 3340F PARENCHYMAL PATTERN: (A) - The breast(s) demonstrate(s) scattered fibroglandular densities. BI-RADS CATEGORY: (0) - 0 RECOMMENDATION: (ADDMAM) - Recommend additional mammographic views. [id number] Immediate follow-up LATERALITY: (R)
== END 2022-11-16 11:09 | disposition home or self-care (01) ==
LOC: DI.N 11:08
DX: Z12.31 Encounter for screening mammogram for malignant neoplasm of breast (principal); R92.1 Mammographic calcification found on diagnostic imaging of breast

== ENCOUNTER 2022-11-26 09:58 | Outpatient (CLI) | payer MEDICARE | END 2022-11-26 09:59 | disposition home or self-care (01) | LOC: LAB 09:58 | PROVIDERS: ATTEND Surgery | DX: K50.90 Crohn's disease, unspecified, without complications (principal) | CPT/HCPCS: 36415; 82565 ==

== ENCOUNTER 2022-12-01 10:39 | Outpatient (CLI) | payer MEDICARE ==
[2022-12-01] MEDS ORDERED: iohexoL-300 100 ML VIAL IVP ONE (14:21)
[2022-12-01] MEDS ORDERED: BARIUM SULFATE 450 ML BOTTLE PO ONE (14:22)
--- NOTE | 2022-12-01 16:34 | CT Report ---
PROCEDURE: ABDOMEN/PELVIS W INDICATIONS: CROHNS DISEASE CONTRAST: 100mL Omni 300 TECHNIQUE: After the administration of oral and intravenous contrast, 5 mm thick sections acquired from the diap hragms to the symphysis. 5 mm thick coronal and sagittal reformats were acquired. For radiation dos e reduction, the following was used: automated exposure control, adjustment of mA and/or kV accordin g to patient size. COMPARISON: None FINDINGS: Image quality: Excellent. Lung bases and heart: Unremarkable. Liver: No solid mass. Gallbladder and biliary tree: Cholelithiasis without wall thickening. No biliary dilation. Spleen: No splenomegaly. Pancreas: No pancreatic ductal dilation. Adrenals: No adrenal nodule. Kidneys and ureters: No hydronephrosis. No renal cystic lesion which requires follow up. No solid mas s. 6 mm right nonobstructing stone (887 Houn[address] unit). Additional smaller right-sided nonobstructi ng nephrolithiasis. Bowel and peritoneum: No bowel distension. No pathologic free fluid. Lymph nodes: No central or retroperitoneal adenopathy. Vessels: No infrarenal aortic aneurysm. PELVIS Reproductive organs: Unremarkable. Bladder: No abnormal wall thickening, accounting for underdistension. Pelvic lymph nodes: No pelvic adenopathy by size criteria. Bones: No aggressive osseous abnormality. Other: No significant ventral or inguinal hernia. IMPRESSION: No evidence of active inflammatory change. Moderate burden of nonobstructing right-sided nephrolithiasis. Cholelithiasis without evidence of acute cholecystitis. Reviewed by: Joao Pineda on 12/01/2022 4:33 PM PDT Approved by: Joao Pineda on 12/01/2022 4:33 PM PDT Station ID: [id number]
== END 2022-12-01 10:40 | disposition home or self-care (01) ==
LOC: DI 10:39
PROVIDERS: ATTEND Surgery
DX: K50.90 Crohn's disease, unspecified, without complications (principal); N20.0 Calculus of kidney; K80.20 Calculus of gallbladder without cholecystitis without obstruction
CPT/HCPCS: 74177; A9270; Q9967

== ENCOUNTER 2022-12-08 10:35 | Outpatient (CLI) | payer MEDICARE ==
--- NOTE | 2022-12-09 10:24 | Mammography Report ---
UNILATERAL RIGHT DIGITAL DIAGNOSTIC MAMMOGRAM 3D/2D WITH MAGNIFICATION: 12/08/2022 CLINICAL: Patient returns for magnification views of microcalcifications in the right breast. Comparison is made to exams dated: 11/16/2022 mammogram, 11/14/2021 mammogram, 10/30/2021 mammogram, mammogram, and 04/03/2016 mammogram - [facility]. There are scattered areas of fibroglandular density in the right breast (category b / 25%-50% glandul ar tissue). The previously described regional/segmental coarse heterogeneous calcifications in the right breast c entral to the nipple posterior depth are seen in additional views. These are more prominent and incr eased in number. Possible associated focal asymmetry near the anterior margins of these calcificatio ns near the lower outer quadrant between 6-8 o'clock. No other significant masses or calcifications are seen in the breast. IMPRESSION: INCOMPLETE: NEEDS ADDITIONAL IMAGING EVALUATION The regional segmental coarse heterogeneous calcifications in the right breast are indeterminate. An ultrasound is recommended for further evaluation and is scheduled to immediately follow this examina tion. Based on the Tyrer Cuzick model (a risk assessment model) the patients lifetime risk is 3.1% and her 10 year risk is 1.9%. According to the ACR, ACS, and NCCN guidelines, an annual breast MRI exam marisa g with mammogram is recommended if the patients lifetime risk is 20% or greater. This exam was interpreted at Station ID: [id number]. NOTE: For mammograms, a report in lay terms will be sent to the patient. Approximately 15% of breast malignancies will not be visualized mammographically. In the management of a palpable breast mass, a negative mammogram must not discourage biopsy of a clinically suspicious lesion. Electronically Signed By: Anant Law M.D. aty/:12/08/2022 12:16:22 ACR BI-RADS Category 0: Incomplete 3340F PARENCHYMAL PATTERN: (A) - The breast(s) demonstrate(s) scattered fibroglandular densities. BI-RADS CATEGORY: (0) - 0 Ultrasound [id number] Immediate follow-up LATERALITY: (R)
--- NOTE | 2022-12-09 10:24 | Ultrasound Report ---
LIMITED ULTRASOUND OF RIGHT BREAST AND AXILLA: 12/08/2022 CLINICAL: Patient returns today to evaluate an asymmetry in the right breast. Comparison is made to exams dated: 12/08/2022 mammogram, 11/16/2022 mammogram, 11/14/2021 ultrasound, mammogram, 10/30/2021 mammogram, and 08/08/2020 mammogram - [facility]. Color flow and real-time ultrasound of the right breast 6-8 o'clock, and axilla regions were performe d. Lyons scale images of the real-time examination were reviewed. No sonographic abnormalitles were seen. No significant abnormalities were seen sonographically in the right axilla. IMPRESSION: SUSPICIOUS OF MALIGNANCY There is no abnormality seen in the right breast to correspond with the mammography finding of possib le asymmetry associated with suspicious calcifications. Stereotactic biopsy is recommended for the r egional/segmental suspicious calcifications in the right breast. Recommend bracketed biopsies of the anterior margin and posterior margin of these calcifications. Findings and recommendations were discussed with the patient by Dr. Mott during today's examination. This exam was interpreted at Station ID: [id number]. Electronically Signed By: Anant Law M.D. aty/:12/09/2022 09:55:05 Entry: - 12/09/2022 09:55:05 Ultrasound BI-RADS: 4 Suspicious for malignancy BI-RADS CATEGORY: (4) - 4 Biopsy [id number] Immediate follow-up LATERALITY: (R)
== END 2022-12-08 10:36 | disposition home or self-care (01) ==
LOC: DI 10:35
PROVIDERS: ATTEND Physician Assistant Medical
DX: R92.2 Inconclusive mammogram (principal)

== ENCOUNTER 2022-12-10 06:17 | Day surgery (SDC) | payer MEDICARE ==
[2022-12-10] MEDS ORDERED: LACTATED RINGERS 1,000 ML IV ONE (06:28)
[2022-12-10 06:48] VITALS: BP 129/78; O2SAT 94
== END 2022-12-10 06:18 | disposition home or self-care (01) ==
LOC: SDS 06:17
PROVIDERS: ATTEND Surgery
DX: R10.13 Epigastric pain (principal); K92.1 Melena; Z53.09 Procedure and treatment not carried out because of other contraindication

== ENCOUNTER 2022-12-15 08:05 | Outpatient (CLI) | payer MEDICARE ==
[2022-12-15] MEDS ORDERED: LIDOCAINE 1%-EPI 1:100000 50 ML VIAL ONE (08:26)
[2022-12-15] MEDS ORDERED: LIDOCAINE-MPF 1% 5 ML VIAL ONE (08:27)
[2022-12-15] MEDS ORDERED: LIDOCAINE-MPF 1% 5 ML VIAL TD ONE (12:29)
[2022-12-15] MEDS ORDERED: LIDOCAINE 1%-EPI 1:100000 50 ML VIAL TD SCH (13:00)
--- NOTE | 2022-12-23 12:36 | Mammography Report ---
MULTIPLE DIGITAL TOMOGRAPHIC MAMMOGRAPHY GUIDED STEREOTACTIC GUIDED BIOPSIES RIGHT BREAST WITH MARKIN G DEVICE INSERTED AND POST DIGITAL MAMMOGRAPHIC IMAGING AND RADIOGRAPHIC SPECIMEN IMAGING- POST-PROCE DURE IMAGING FOR MARKER PLACEMENT: 12/15/2022 CLINICAL: Right breast stereotactic biopsy. Correlation is made to exams dated: 12/08/2022 mammogram, 11/16/2022 mammogram, 11/14/2021 mammogram, a nd 10/30/2021 mammogram - [facility]. A stereotactic guided biopsy was performed for the area of fine calcifications located in the right b reast at 7 o'clock middle depth. This was described on the previous mammography report. The skin wa s prepped in the usual manner. Local anesthetic was administered to the access site. A skin milka wa s made in the breast. The abnormality was approached from the lateral aspect using an upright digita l tomographic mammography unit. A 9 gauge biopsy needle was placed adjacent to the abnormality under computer guidance and confirmatory stereotactic mammography images were obtained to document needle placement. Once the needle was documented to be in the correct location, six specimens were obtained using an automated biopsy gun. The patient received additional local anesthetic during the procedur e. A clip was inserted into the biopsy cavity. A skin closure strip and a sterile dressing were edda lied to the access site. Post procedure digital mammographic imaging demonstrates the location devic e 1.3cm superior, 2.5cm medial, 1.2cm posterior from the geometric center of the targeted area. The specimens were sent to the laboratory for pathological analysis. A second stereotactic guided biopsy was performed for the area of fine calcifications located in the right breast at 10 o'clock posterior depth. This was described on the previous mammography report. The skin was prepped in the usual manner. Local anesthetic was administered to the access site. A s kin milka was made in the breast. The abnormality was approached from the craniocaudal aspect using a n upright digital tomographic mammography unit. A 9 gauge biopsy needle was placed adjacent to the a bnormality under computer guidance and confirmatory stereotactic mammography images were obtained to document needle placement. Once the needle was documented to be in the correct location, six specime ns were obtained using an automated biopsy gun. A clip was inserted into the biopsy cavity. A skin closure strip and a sterile dressing were applied to the access site. Post procedure digital mammogr aphic imaging demonstrates the location device at the targeted area. The specimens were sent to the laboratory for pathological analysis. IMPRESSION: STEREOTACTIC GUIDED BIOPSY MALIGNANT Stereotactic guided biopsy of the area of fine calcifications in the right breast at 7 o'clock middle depth was successful. The imaged specimens includes the calcifications. Pathology indicates benign apocrine metaplasia (AM). Pathology results are possibly discordant with mammography findings. Sam cifications are similar in morphology to the 10:00 calcifications which are positive, see below. Stereotactic guided biopsy of the area of fine calcifications in the right breast at 10 o'clock poste rior depth was successful. The imaged specimens includes the calcifications. 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 Pathology results are concordant with imaging findings. A breast MRI to d etermine extent of disease and a surgical/oncologic consultation are recommended. Results and recomm endations will be communicated to the ordering provider's office. This exam was interpreted at Station ID: [id number]. Ricarda velazquez/:12/23/2022 10:17:35 BI-RADS CATEGORY: () - Unspecified - other recall n/a LATERALITY: (B)
== END 2022-12-15 08:06 | disposition home or self-care (01) ==
LOC: DI 08:05
PROVIDERS: ATTEND Internal Medicine
DX: N60.81 Other benign mammary dysplasias of right breast (principal); D05.11 Intraductal carcinoma in situ of right breast
CPT/HCPCS: 19081; J3490

== ENCOUNTER 2022-12-18 07:30 | Day surgery (SDC) | payer MEDICARE ==
[2022-12-18] MEDS ORDERED: LACTATED RINGERS 1,000 ML IV ONE ×2 (07:56→09:00)
--- NOTE | 2022-12-18 08:01 | ANESTHESIA ---
Pre-Anesthesia VS, & Labs - Diagnosis epigastric pain - Procedure EGD Vital Signs: Temp Pulse Resp BP Pulse Ox O2 Flow Rate 36.1 C L 75 16 133/71 H 98 12/18/22 07:45 12/18/22 07:45 12/18/22 07:45 12/18/22 07:45 12/18/22 07:45 Height: 5 ft 2 in Weight (kg): 87.2 kg Body Mass Index: 35.2 BMI Classification: Obese - NPO >8 hours - Is Patient ?: No - Lab Results Current Lab Results: Laboratory Tests 12/18/22 07:52: POC Whole Bld Glucose 150 H Lab results reviewed: Yes Home Medications and Allergies Atorvastatin [Lipitor] 10 mg PO DAILY 06/11/22 Losartan/Hydrochlorothiazide [Hyzaar 50-12.5 Tablet] 50 mg PO DAILY 06/11/22 Semaglutide [Ozempic] 0.5 mg SQ OAW 06/11/22 Trazodone HCl 100 mg PO HS 06/11/22 Gabapentin [Neurontin] 600 mg PO HS 12/09/22 Allergies/Adverse Reactions: Allergies Allergy/AdvReac Type Severity Reaction Status Date / Time Iodinated Contrast Media Allergy Hives Verified 12/17/22 13:12 [Iodinated Contrast Media - IV Dye] Sulfa (Sulfonamide Allergy Unknown Verified 12/17/22 13:12 Antibiotics) amoxicillin AdvReac Unknown Verified 12/17/22 13:12 [email or web address] [From Ambien] AdvReac Unknown Verified 12/17/22 13:12 Anes History & Medical History - Anesthetic History Anesthesia Complications: reports: No previous complications Family history of Anesthesia Complications: Denies Family history of Malignant Hyperthermia: Denies - Medical History Cardiovascular: reports: Hypertension, High cholesterol Pulmonary: reports: Sleep apnea, CPAP use Gastrointestinal: reports: Colon polyps, Crohn's disease Urinary: reports: Kidney stones Musculoskeletal: reports: Fatigue, Chronic back pain, Other Endocrine/Autoimmune: reports: Type 2 diabetes Smoking Status: Never smoker - Surgical History General: reports: Colonoscopy Gynecologic: reports: section Orthopedic: reports: Knee replacement Exam General: Alert, Oriented x3, Cooperative Dental: WNL Mouth Openin Fingerbreadth Mallampati classification: II Thyromental Distance: 4-6 cm Respiratory: Lungs clear Cardiovascular: Regular rate Plan Anesthesia Type: General, MAC Consent for Procedure(s) Verified and Reviewed: Yes Code Status: Attempt Resuscitation ASA classification: 2-Mild systemic disease Is this case an emergency?: No
--- NOTE | 2022-12-18 08:36 | HISTORY & PHYSICAL EXAMINATION ---
Chief Complaint - Chief Complaint Chief Complaint: recent epigastric pain and vomiting History of Present Illness - History Obtained From Records Reviewed: yes History obtained from: pt Exam Limitations: none - History of Present Illness HPI Comment/Other: hx crohns. recent ct no evidence crohns. here for egd. 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 - POLST Patient has POLST: No Meds/Allgy - Home Medications Home Medications: Ambulatory Orders Medication Instructions Recorded Confirmed Atorvastatin [Lipitor] 10 mg PO DAILY 06/11/22 12/17/22 Losartan/Hydrochlorothiazide 50 mg PO DAILY 06/11/22 12/17/22 [Hyzaar 50-12.5 Tablet] Semaglutide [Ozempic] 0.5 mg SQ OAW 06/11/22 12/17/22 Trazodone HCl 100 mg PO HS 06/11/22 12/17/22 Gabapentin [Neurontin] 600 mg PO HS 12/09/22 12/17/22 - Allergies Allergies/Adverse Reactions: Allergies Allergy/AdvReac Type Severity Reaction Status Date / Time Iodinated Contrast Media Allergy Hives Verified 12/17/22 13:12 [Iodinated Contrast Media - IV Dye] Sulfa (Sulfonamide Allergy Unknown Verified 12/17/22 13:12 Antibiotics) amoxicillin AdvReac Unknown Verified 12/17/22 13:12 [email or web address] [From Ambien] AdvReac Unknown Verified 12/17/22 13:12 Review of Systems - Other Findings Other Findings: 10 pt ros as above otherwise unremarkable Exam - Vital Signs Vital Signs: Vital Signs x48h Temp Pulse Resp BP Pulse Ox 12/18/22 07:45 36.1 C L 75 16 133/71 H 98 - Physical Exam General Appearance: positive: No acute distress, Alert Eyes Bilateral: positive: PERRL, EOMI Neck: positive: No JVD, Trachea midline Respiratory: positive: No respiratory distress Cardiovascular: positive: Regular rate & rhythm Abdomen: positive: No distention Neurologic/Psychiatric: positive: Oriented x3 Conclusion/Plan - Problem List (1) Crohn's disease Conclusion/Plan: recent epigastric pain. plan egd. parq held and consent obtained - Lab Results Lab results reviewed: Yes
[2022-12-18 09:33] VITALS: BP 105/65; O2SAT 94
--- NOTE | 2022-12-18 14:16 | ANESTHESIA POST OP EVALUATION ---
Anesthesia Post Eval - Post Anesthesia Eval Vitals: Last Vital Signs Temp 36.0 C L 12/18/22 09:25 Pulse 67 12/18/22 09:25 Resp 14 12/18/22 09:25 BP 105/65 12/18/22 09:25 Pulse Ox 94 12/18/22 09:25 O2 Flow Rate CV Function Including HR & BP: Stable Pain Control: Satisfactory Nausea & Vomiting: Negative Mental Status: Baseline Respiratory Status: Airway Patent Hydration Status: Satisfactory Anesthesia Complications: None
== END 2022-12-18 07:31 | disposition home or self-care (01) ==
LOC: SDS 07:30
PROVIDERS: ATTEND Surgery
PROC: 0DB68ZX Excision of Stomach, Via Natural or Artificial Opening Endoscopic, Diagnostic (ICD-10-PCS; 2022-12-18)
PROC: 0DB58ZX Excision of Esophagus, Via Natural or Artificial Opening Endoscopic, Diagnostic (ICD-10-PCS; 2022-12-18)
PROC: 0DB98ZX Excision of Duodenum, Via Natural or Artificial Opening Endoscopic, Diagnostic (ICD-10-PCS; principal; 2022-12-18 08:30)
DX: R10.13 Epigastric pain (principal); R11.10 Vomiting, unspecified; K92.1 Melena; K50.90 Crohn's disease, unspecified, without complications; I10 Essential (primary) hypertension; G47.30 Sleep apnea, unspecified; E11.9 Type 2 diabetes mellitus without complications; E66.9 Obesity, unspecified; Z68.35 Body mass index [BMI] 35.0-35.9, adult
CPT/HCPCS: 43239; J7120

== ENCOUNTER 2023-01-01 09:03 | Outpatient (CLI) | payer MEDICARE ==
[2023-01-01 12:30] LABS: CALCIUM 9.8 mg/dL (8.5-10.3); CREATININE 0.8 mg/dL (0.6-1.3); POTASSIUM 4.2 mmol/L (3.5-4.5)
[2023-01-01 12:48] LABS: ESTIMATED AVERAGE GLUCOSE 134 mg/dL (70-100); HEMOGLOBIN A1c% 6.3 % (4.27-6.07)
== END 2023-01-01 09:04 | disposition home or self-care (01) ==
LOC: LAB.N 09:03
PROVIDERS: ATTEND Internal Medicine
DX: E11.42 Type 2 diabetes mellitus with diabetic polyneuropathy (principal)
CPT/HCPCS: 36415; 80048; 83036

== ENCOUNTER 2023-07-06 08:08 | Outpatient (CLI) | payer MEDICARE ==
[2023-07-06 12:09] LABS: BASOPHILS # (AUTO) 0.1 10^3/uL (0.0-0.1); BASOPHILS % (AUTO) 0.7 %; EOSINOPHILS # (AUTO) 0.3 10^3/uL (0.0-0.7); EOSINOPHILS % (AUTO) 3.4 %; HCT - HEMATOCRIT 42.9 % (37.0-47.0); HGB - HEMOGLOBIN 13.7 g/dL (12.0-16.0); LYMPHOCYTES # (AUTO) 3.5 10^3/uL (1.5-3.5); MEAN CORPUSCULAR HEMOGLOBIN 29.7 pg (27.0-31.0); MEAN CORPUSCULAR HGB CONC 31.9 g/dL (32.0-36.0); MEAN CORPUSCULAR VOLUME 92.9 fL (81.0-99.0); MEAN PLATELET VOLUME 11.5 fL (7.9-10.8); MONOCYTES # (AUTO) 0.6 10^3/uL (0.0-1.0); MONOCYTES % (AUTO) 6.7 %; NEUTROPHILS # (AUTO) 4.9 10^3/uL (1.5-6.6); PLT - PLATELET COUNT 337 10^3/uL (130-450); RED BLOOD COUNT 4.62 10^6/uL (4.20-5.40); RED CELL DISTRIBUTION WIDTH 13.2 % (12.0-15.0); WHITE BLOOD COUNT 9.5 x10^3/uL (4.8-10.8)
[2023-07-06 12:37] LABS: ALBUMIN 4.2 g/dL (3.2-5.5); ALBUMIN/GLOBULIN RATIO 1.4 (1.0-2.2); ALKALINE PHOSPHATASE 80 IU/L (42-121); ALT ALANINE AMINOTRANSFERASE 26 IU/L (10-60); AST ASPARTATE AMINOTRANSFERASE 21 IU/L (10-42); BILIRUBIN,TOTAL 0.6 mg/dL (0.2-1.0); BUN - BLOOD UREA NITROGEN 19 mg/dL (6-20); CALCIUM 9.8 mg/dL (8.5-10.3); CARBON DIOXIDE - CO2 24 mmol/L (21-32); CHLORIDE 106 mmol/L (101-111); CHOL/HDL RATIO 2.9 (<4.4); CHOLESTEROL 169 mg/dL; CREATININE 0.9 mg/dL (0.6-1.3); GFR - MDRD 62 (>89); GLUCOSE 147 mg/dL (74-104); HDL CHOLESTEROL 58 mg/dL; LDL CHOLESTEROL,CALCULATED 61 mg/dL; LDL/HDL RATIO 1.1 (<4.4); SODIUM 139 mmol/L (135-145); TOTAL PROTEIN 7.3 g/dL (6.4-8.9); TRIGLYCERIDES 249 mg/dL (48-352); VLDL CHOLESTEROL 50 mg/dL
[2023-07-06 12:45] LABS: THYROID STIMULATING HORMONE 1.96 uIU/mL (0.34-5.60)
[2023-07-06 12:48] LABS: ESTIMATED AVERAGE GLUCOSE 131 mg/dL (70-100); HEMOGLOBIN A1c% 6.2 % (4.27-6.07)
[2023-07-06 18:35] LABS: CREATININE,URINE 194.3 mg/dL; MICROALBUM/CREATININE RATIO,UR 12.9 ug/mg (<30.0); MICROALBUMIN,URINE 2.5 mg/dL
== END 2023-07-06 08:09 | disposition home or self-care (01) ==
LOC: LAB.N 08:08
PROVIDERS: ATTEND Internal Medicine
DX: E78.5 Hyperlipidemia, unspecified (principal); E11.40 Type 2 diabetes mellitus with diabetic neuropathy, unspecified; Z86.59 Personal history of other mental and behavioral disorders; I10 Essential (primary) hypertension
CPT/HCPCS: 36415; 80053; 80061; 82043; 82570; 83036; 83721; 84443; 85025

== ENCOUNTER 2024-07-03 22:16 | Inpatient (IN) ==
--- NOTE | 2024-07-03 22:44 | ED Physician Documentation ---
History of Present Illness Stated complaint Stated Complaint: GEN WEAKNESS Chief complaint Chief Complaint: Fever History obtained from History obtained from: Patient, Family and EMS Additonal information Additional information: 73-year-old female with history of type 2 diabetes, hypertension, hyperlipidemia, obstructive sleep apnea, GERD, insomnia who presents emergency department for cough diarrhea and weakness. Over the last 2 weeks patient developed GI illness, she apparently came back from visiting family, told her daughter that she was sick with a GI illness, daughter does not know the details but believes she had some diarrhea, after that she developed a cough and for last week has had a wet sounding cough, she has had fever over the last 4 days Today patient developed diarrhea again, she had an oral temp of 102 took a gram of Tylenol, and daughter noted that she was confused so medics were called. Patient reports cough, she says she feels short of breath, she denies any abdominal pain, pain with urination, she endorses vomiting and diarrhea no blood or black in her vomit or diarrhea. She denies any falls Medics noted some abdominal pain on exam and a blood glucose greater than 100, She arrived as a sepsis alert. Review of Systems Status of ROS: 10 or more systems reviewed and unremarkable except as noted in history and below Meds/Allgy Home Medications Ambulatory Orders Medication Instructions Recorded Confirmed atorvastatin 10 mg tablet 10 mg PO DAILY #90 tabs 01/30/24 05/06/24 celecoxib 100 mg capsule 100 mg PO BID 05/06/24 05/06/24 losartan 50 mg tablet 50 mg PO QDAY 05/06/24 05/06/24 omeprazole 20 mg capsule,delayed 20 mg PO BID 05/08/24 05/09/24 release semaglutide 0.25 mg or 0.5 mg (2 0.5 mg subcut QWEEK 05/08/24 05/08/24 mg/1.5 mL) subcutaneous pen injector (Ozempic) gabapentin 300 mg capsule See Rx Instructions PO BID #360 05/09/24 05/09/24 caps methylprednisolone acetate 80 80 mg intra-articular ONCE #1 mL 05/09/24 05/09/24 mg/mL suspension for injection (Depo-Medrol) trazodone 150 mg tablet 150 mg PO HS #90 tabs 05/09/24 05/09/24 Allergies Allergies Allergy/AdvReac Type Severity Reaction Status Date / Time Iodinated Contrast Media Allergy Hives Verified 12/17/22 13:12 (Iodinated Contrast Media - IV Dye) Sulfa (Sulfonamide Allergy Unknown Verified 12/17/22 13:12 Antibiotics) amoxicillin AdvReac Severe Diarrhea Verified 05/08/24 14:17 zolpidem (From Ambien) AdvReac Severe epistaxis Verified 05/08/24 14:17 PFSH Active Problems All Active Problems (Updated 07/04/24 @ 01:30 by Belkis Ott MD) Hydronephrosis with urinary obstruction due to ureteral calculus (Acute) Acute pyelonephritis (Acute) Sepsis (Acute) Tear of supraspinatus tendon (Acute) Ductal carcinoma in situ (DCIS) of right breast (Acute) Type 2 diabetes mellitus with peripheral neuropathy (Acute) Essential hypertension (Acute) Mixed hyperlipidemia (Acute) Fatty liver disease, nonalcoholic (Acute) Obstructive sleep apnea, adult (Acute) GERD (gastroesophageal reflux disease) (Acute) Right rotator cuff tear (Acute) Tinnitus of both ears (Acute) Head injury (Acute) Adenomatous colon polyp (Acute) Asymptomatic cholelithiasis (Acute) Insomnia (Acute) Degenerative joint disease (DJD) of lumbar spine (Acute) Acne rosacea (Acute) Medical History Medical History (Updated 07/04/24 @ 01:30 by Belkis Ott MD) History of depression ADD (attention deficit disorder) Crohn's disease dx in , not symptomatic Nephrolithiasis Meralgia paresthetica of left side Occipital neuralgia Surgical History Surgical History (Updated 05/09/24 @ 16:15 by Carlo Ferrer MD) H/O colonoscopy 02/2024, adenomatous polyps x 2, recall 2030 S/P lumbar laminectomy 11/2023, L2-L5 Status post left partial knee replacement 05/2023, medial compartment, 2nd surgery for pulled sutures H/O breast surgery 03/2023, re-excision H/O right mastectomy 02/2023 H/O esophagogastroduodenoscopy 12/2022, benign biopsies Status post right partial knee replacement 05/2022, medial compartment, Dr. Wheeler H/O bilateral cataract extraction H/O colonoscopy 07/2018, 05/2014, 05/2011, hx of adenomatous polyps H/O section Family History Family History (Updated 05/09/24 @ 16:18 by Carlo Ferrer MD) Mother Alzheimers disease Congestive heart failure Father Primary squamous cell carcinoma of throat Sister Brain aneurysm Aunt Brain aneurysm Abdominal aortic aneurysm Social History Social History (Updated 05/09/24 @ 16:20 by Carlo Ferrer MD) Smoking Status: Never smoker Second hand tobacco smoke exposure: No Do you dip or chew tobacco?: No Do you vape?: No Living arrangement: At home Marital Status: Single Living Condition: Alone Relationship: Level: Independent Do you feel safe in your home environment?: Yes Suffered physical, verbal, emotional, or financial abuse?: No History of Abuse: No ETOH Use: None Substance Use: denies use Are you sexually active?: No 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 Service: No POLST Patient has POLST: No Exam Constitutional Tired appearing 73-year-old female HENMT normocephalic Dry mucous membranes Eyes PERRL Chest inspection of chest normal and palpation of chest normal Respiratory normal respiratory effort and no wheezes Wet sounding cough, rhonchi in bilateral bases Cardiovascular Tachycardic, normal rhythm Gastrointestinal Nondistended, mildly tender to palpation in the bilateral lower quadrant Genitourinary no CVA tenderness Back/Pelvis spine normal to inspection Extremities normal to inspection 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 intact Psychiatry Patient is tired appearing, slow to answer question but appropriate Skin Pale appearing Results Vitals Vitals: Vital Signs - 24 hr 07/03/24 22:20 07/03/24 22:35 07/03/24 22:48 Temperature 37.7 C Temperature Source Pulse Rate 123 H 120 H 114 H Respiratory Rate 16 20 20 Blood Pressure 80/48 L 72/52 L 86/64 L O2 Saturation 95 94 93 O2 Source Room air Room air Room air Pain Intensity 0 0 07/03/24 23:03 07/03/24 23:26 07/04/24 00:00 Temperature 36.8 C Temperature Source Oral Pulse Rate 120 H 116 H 119 H Respiratory Rate 20 16 24 Blood Pressure 81/53 L 99/53 L 82/52 L O2 Saturation 94 94 95 O2 Source Room air Room air Nasal cannula Pain Intensity 0 07/04/24 01:03 07/04/24 01:14 07/04/24 01:36 Temperature 37.1 C Temperature Source Pulse Rate 119 H 117 H Respiratory Rate 26 H 20 Blood Pressure 93/50 L 95/58 L O2 Saturation 93 93 95 O2 Source Room air Room air Pain Intensity 0 Oxygen O2 Source Room air EKG (time done) 2300: EKG releavant findings:: EKG personally interpreted by author of this note. Relevant findings are: Sinus tachycardia rate of 117, normal axis normal intervals no ST elevation or depression Labs Labs: Laboratory Tests 07/03/24 07/04/24 22:34 01:49 WBC 7.8 RBC 4.24 Hgb 12.3 Hct 38.1 MCV 89.9 MCH 29.0 MCHC 32.3 RDW 13.0 Plt Count 387 MPV 9.8 Neut # (Auto) Not Reportable Lymph # (Auto) Not Reportable [place] # (Auto) Not Reportable Eos # (Auto) Not Reportable Baso # (Auto) Not Reportable Absolute Nucleated RBC Not Reportable Total Counted 100 Band Neuts % (Manual) 21 H Abnorm Lymph % (Manual) 0 Nucleated RBC % Not Reportable Neutrophils # (Manual) 7.3 H Lymphocytes # (Manual) 0.5 L Monocytes # (Manual) 0.0 Eosinophils # (Manual) 0.0 Basophils # (Manual) 0.0 Differential Comment MANUAL DIFFERENTIAL WBC Morphology NORMAL APPEARANCE Platelet Estimate NORMAL (130-450,000) Platelet Morphology NORMAL APPEARANCE RBC Morph Micro Appear NORMAL APPEARANCE Sodium 138 Potassium 3.9 Chloride 109 Carbon Dioxide 18 L Anion Gap 11.0 BUN 19 Creatinine 1.6 H Estimated GFR (MDRD) 32 L Glucose 131 H POC Whole Bld Glucose 127 Lactic Acid 2.1 Calcium 8.8 Total Bilirubin 0.7 AST 27 ALT 19 Alkaline Phosphatase 103 Total Protein 7.0 Albumin 3.4 Globulin 3.6 Albumin/Globulin Ratio 0.9 L Urine Color YELLOW Urine Clarity SL. CLOUDY Urine pH 6.0 Ur Specific [place] 1.020 Urine Protein 100 H Urine Glucose (UA) NEGATIVE Urine Ketones NEGATIVE Urine Occult Blood MODERATE H Urine Nitrite NEGATIVE Urine Bilirubin NEGATIVE Urine Urobilinogen 0.2 (NORMAL) Ur Leukocyte Esterase LARGE H Urine RBC 0-5 Urine WBC >25 H Ur Squamous Epith Cells RARE Squamous Urine Bacteria Moderate H Urine Culture Comments INDICATED Rads (name of study) CT chest: Relevant Findings:: Final report received Interpretation: IMPRESSION: No pulmonary embolus. Right upper lobe 1.1 x 1.0 solid pulmonary nodule. Recommend follow-up CT chest in 3 months versus PET/CT. CT abd/pelvis : Relevant Findings:: Final report received Interpretation: IMPRESSION: 2 right mid ureteral calculi measuring 8 and 6 mm with moderate to severe upstream hydronephrosis and perinephric stranding consistent with obstructive uropathy. Cholelithiasis without CT evidence of acute cholecystitis. PD Medical Decision Making ED course Complexity details: reviewed old records, reviewed results, re-evaluated patient, considered differential and d/w patient ED course: Differential diagnosis includes but is not limited to sepsis, septic shock, secondary to viral infection, pneumonia, diarrheal illness, urinary tract infection, intra-abdominal infection, consider electrolyte derangement, dehydration, patient is slow to respond to questioning but appropriate, denies headache, doubt meningitis or encephalitis IV access was established, labs, blood culture and lactic acid were obtained, viral panel via nasal swab was obtained, straight cath urinalysis was obtained, given her abdominal tenderness CT of the pelvis was obtained, she was given 30 cc/kg of lactated ringer given hypotension, she had been febrile before taking 1 g of Tylenol but is afebrile here Given wet cough, will treat for presumed pneumonia while awaiting additional results Patient's labs show no leukocytosis no left shift, no anemia, her lactic acid is within normal range Urinalysis on my independent interpretation is concerning for urinary tract infection with large leuk esterase greater than 25 white blood cells and moderate bacteria, she is already received ceftriaxone which would cover most urinary pathogens, urine has been sent for culture IMPRESSION: No pulmonary embolus. Right upper lobe 1.1 x 1.0 solid pulmonary nodule. Recommend follow-up CT chest in 3 months versus PET/CT. IMPRESSION: 2 right mid ureteral calculi measuring 8 and 6 mm with moderate to severe upstream hydronephrosis and perinephric stranding consistent with obstructive uropathy. Cholelithiasis without CT evidence of acute cholecystitis. I spoke with Dr Dudley re sepsis 2/2 obstructing stone. He is on his way in to take the patient to the OR. She has minimal urine output at this time, BP is still low with MAP 60, she is tachycardic, however her mentation is improved, she had no lactic acidosis, no evidence of end organ damage. Will given additional IVF, considered starting levo as needed. Taken to the OR by Dr Dudley. Consults Consults: Consulted (name) (Dr Dudley) Critical Care Critical Care Provided: Yes Time(min): 65 Time Includes: See progress note Data interpretation: See progress note Procedures included in critical care time: See progress note Procedures excluded from critical care time: See progress note Discharge Plan Discharge Patient Disposition: 66 [facility] DC/Xfer Condition: Serious Clinical Impression: Acute pyelonephritis, Hydronephrosis with urinary obstruction due to ureteral calculus Sepsis Qualifiers: Sepsis type: sepsis due to unspecified organism Sepsis acute organ dysfunction status: without acute organ dysfunction Qualified Code(s): A41.9 - Sepsis, unspecified organism
[2024-07-03 22:47] LABS: BILIRUBIN,URINE NEGATIVE (NEGATIVE); GLUCOSE, URINE (UA) NEGATIVE (NEGATIVE); KETONES,URINE (UA) NEGATIVE (NEGATIVE); LEUKOCYTE ESTERASE, URINE LARGE (NEGATIVE); NITRITE,URINE NEGATIVE (NEGATIVE); OCCULT BLOOD,URINE MODERATE (NEGATIVE); PROTEIN,URINE 100 mg/dL (NEGATIVE); UROBILINOGEN,URINE 0.2 (NORMAL) E.U./dL (NORMAL)
[2024-07-03 22:50] LABS: BASOPHILS % (AUTO) 0.1 %; HCT - HEMATOCRIT 38.1 % (37.0-47.0); HGB - HEMOGLOBIN 12.3 g/dL (12.0-16.0); LYMPHOCYTES % (AUTO) 6.4 %; MEAN CORPUSCULAR HGB CONC 32.3 g/dL (32.0-36.0); MEAN CORPUSCULAR VOLUME 89.9 fL (81.0-99.0); MEAN PLATELET VOLUME 9.8 fL (7.9-10.8); MONOCYTES % (AUTO) 0.3 %; NEUTROPHILS % (AUTO) 92.2 %; PLT - PLATELET COUNT 387 10^3/uL (130-450); RED BLOOD COUNT 4.24 10^6/uL (4.20-5.40); WHITE BLOOD COUNT 7.8 x10^3/uL (4.8-10.8)
[2024-07-03 22:51] LABS: ABNORMAL LYMPHS % (MANUAL) 0 %
[2024-07-03 22:54] LABS: BACTERIA,URINE Moderate /HPF (None Seen); CLARITY,URINE SL. CLOUDY (CLEAR); RBC,URINE 0-5 /HPF (0-5); SQUAMOUS EPITHELIAL CELL,UR RARE Squamous (<= Few); WBC,URINE >25 /HPF (0-5)
[2024-07-03] MEDS ORDERED: cefTRIAXone 1 GM VIAL ONE (23:01)
[2024-07-03 23:03] LABS: LACTIC ACID, VENOUS 2.1 mmol/L (0.5-2.2)
[2024-07-03 23:04] LABS: ALBUMIN 3.4 g/dL (3.2-5.5); ALBUMIN/GLOBULIN RATIO 0.9 (1.0-2.2); BILIRUBIN,TOTAL 0.7 mg/dL (0.2-1.0); CALCIUM 8.8 mg/dL (8.5-10.3); CREATININE 1.6 mg/dL (0.6-1.3); POTASSIUM 3.9 mmol/L (3.5-4.5)
[2024-07-03] MEDS ORDERED: iohexoL-300 100 ML VIAL ONE (23:06)
[2024-07-03 23:15] LABS: BAND NEUTROPHILS % (MANUAL) 21 %; DIFFERENTIAL COMMENT MANUAL DIFFERENTIAL; LYMPHOCYTES # (MANUAL) 0.5 10^3/uL (1.5-3.5); LYMPHOCYTES % (MANUAL) 7 %; NEUTROPHILS # (MANUAL) 7.3 10^3/uL (1.5-6.6); PLATELET ESTIMATE, MANUAL NORMAL (130-450,000) (NORMAL); PLATELET MORPHOLOGY NORMAL APPEARANCE (NORMAL); RBC MORPHOLOGY (MULTIPLE) NORMAL APPEARANCE (NORMAL); WBC MORPHOLOGY (MULTIPLE) NORMAL APPEARANCE (NORMAL)
[2024-07-03] MEDS: methylPREDNISolone SUCCINATE 125 MG/2 ML VIAL IVP STA (23:41)
[2024-07-03] MEDS: diphenhydrAMINE INJ 50 MG/ML VIAL IVP STA (23:42)
--- NOTE | 2024-07-03 23:46 | XRAY Report ---
PROCEDURE: XR Chest 1V INDICATIONS: Sepsis TECHNIQUE: One view of the chest was acquired. COMPARISON: None. FINDINGS: Surgical changes and devices: None. Lungs and pleura: No pleural effusions or pneumothorax. No consolidation. Mediastinum: Mediastinal contours appear normal. Heart size is normal. Bones and chest wall: No suspicious bony lesions. Overlying soft tissues appear unremarkable. IMPRESSION: No acute cardiopulmonary process. Reviewed by: Lorri Dotson MD, PhD on 07/03/2024 11:44 PM PDT Approved by: Lorri Dotson MD, PhD on 07/03/2024 11:44 PM PDT Station ID: [id number]
[2024-07-04] MEDS: cefTRIAXone 1 GM in SODIUM CHLORIDE 0.9% MINIBAG 100 ML IV STA (00:01)
[2024-07-04] MEDS: AZITHROMYCIN INJ 500 MG in SODIUM CHLORIDE 0.9% 250 ML IV STA (00:01)
[2024-07-04] MEDS: iohexoL-300 100 ML VIAL IVP ONE (00:02)
--- NOTE | 2024-07-04 00:50 | CT Report ---
PROCEDURE: CT Abdomen/Pelvis W INDICATIONS: abd pain, sepsis CONTRAST: 100cc [id number] TECHNIQUE: After the administration of intravenous contrast, a CT scan of the abdomen and pelvis was performed. Images were recorded and evaluated at appropriate window settings. Reformats: coronal and sagittal. F or radiation dose reduction, the following was used: automated exposure control, adjustment of mA and /or kV according to patient size. COMPARISON: CT chest angiogram 07/03/2024. FINDINGS: Image quality: Diagnostic. Lower chest: Please see separately dictated CT chest angiogram 07/03/2024. Liver: No solid mass. Gallbladder: Cholelithiasis without wall thickening. Biliary tree: No intrahepatic or extrahepatic dilation, accounting for age. Spleen: No splenomegaly. Pancreas: No pancreatic ductal dilation. Adrenals: No adrenal nodule. Kidneys and ureters: There are 2 obstructing calculi in the mid right ureter. The more superior calcu carrol measures 8 mm (HU 1231) and inferior calculus measures 6 mm (82 1415) there is moderate to severe upstream hydronephrosis and perinephric stranding. No hydronephrosis. No renal cystic lesion which r equires follow up. No solid mass. Stomach, bowel and peritoneum: No gastric or small bowel dilation. No abnormal wall thickening. No pa thologic free fluid. Lymph nodes: No central or retroperitoneal adenopathy. Vessels: No infrarenal aortic aneurysm. Patent portal vein. PELVIS Reproductive organs: Left adnexal simple appearing cystic structure measuring 3.3 cm, stable since . Bladder: No abnormal wall thickening, accounting for underdistention. Pelvic lymph nodes: No pelvic adenopathy by size criteria. Bones: No aggressive osseous abnormality. Other: No significant ventral or inguinal hernia. IMPRESSION: 2 right mid ureteral calculi measuring 8 and 6 mm with moderate to severe upstream hydronephrosis and perinephric stranding consistent with obstructive uropathy. Cholelithiasis without CT evidence of acute cholecystitis. Reviewed by: Lorri Dotson MD, PhD on 07/04/2024 12:49 AM PDT Approved by: Lorri Dotson MD, PhD on 07/04/2024 12:49 AM PDT Station ID: [id number]
--- NOTE | 2024-07-04 00:55 | CT Report ---
PROCEDURE: CT Angio Chest INDICATIONS: sepsis, cough CONTRAST: 100cc [id number] TECHNIQUE: After the administration of intravenous contrast, 2 mm axial images were acquired from the pulmonary apices to the posterior costophrenic angles during the arterial phase. In addition, 1 mm lung kernel and 5 mm soft tissue kernel reconstructions were performed. 3-dimensional coronal oblique maximum int ensity projection (MIP) reformats, 8 mm axial MIP, and 5 mm coronal and sagittal MPR reformats were t hen performed through the thorax. For radiation dose reduction, the following was used: automated exp osure control, adjustment of mA and/or kV according to patient size. COMPARISON: CT abdomen and pelvis 07/03/2074. FINDINGS: Image quality: Diagnostic. Large vessels: No filling defects within the opacified pulmonary arteries, accounting for motion and contrast timing. No evidence of acute aortic syndrome or aortic aneurysm. Lungs and pleura: No consolidation. No pleural effusions. No pneumothorax. Right upper pole 1.1 x 1. 0 solid pulmonary nodule (, MIP image 42). Mediastinum: Heart size is normal. No pericardial effusion. No large vessel abnormality. No mediastin al adenopathy by size criteria. Chest wall and lower neck: Thyroid is unremarkable. No axillary or supraclavicular adenopathy by size . Bones: No aggressive osseous abnormality. Upper Abdomen: Please see separately dictated same-day CT abdomen and pelvis. IMPRESSION: No pulmonary embolus. Right upper lobe 1.1 x 1.0 solid pulmonary nodule. Recommend follow-up CT chest in 3 months versus PE T/CT. Reviewed by: Lorri Dotson MD, PhD on 07/04/2024 12:54 AM PDT Approved by: Lorri Dotson MD, PhD on 07/04/2024 12:54 AM PDT Station ID: [id number]
--- NOTE | 2024-07-04 01:14 | PREOP HISTORY & PHYSICAL ---
Surgical History & Physical Chief Complaint/HPI Chief Complaint: right ureteral stone/sepsis History of Present Illness: 73-year-old woman with history of type 2 diabetes, obesity, sleep apnea presents to the ER today with several days of diarrhea, cough. She had a fever at home with a temperature to 102 Fahrenheit. In the ER she was found to have septic concerning vitals with low blood pressure and tachycardia. She was resuscitated with fluids. She has not been febrile here. A CT scan was performed showing obstructing ureteral stones x 2 about 8 mm and 6 mm in size in the mid right ureter Her urinalysis is grossly concerning for infection. She has no leukocytosis Daughter is at bedside Home Meds and Allergies Active Medications Generic Name Dose Route Start Last Admin Trade Name Freq PRN Reason Stop Dose Admin Lactated Ringer's 1,000 mls @ 999 mls/hr 07/04/24 01:04 07/04/24 01:33 Lr IV 07/04/24 02:04 999 mls/hr ONCE ONE Administration Norepinephrine/Sodium Chloride 8 mg in 250 mls @ 15 mls/hr 07/04/24 02:00 Levophed 8 Mg/250-0.9% Nacl IV .[id number] NATALIE Protocol 8 MCG/MIN atorvastatin 10 mg tablet 10 mg PO DAILY #90 tabs 01/30/24 celecoxib 100 mg capsule 100 mg PO BID 05/06/24 losartan 50 mg tablet 50 mg PO QDAY 05/06/24 omeprazole 20 mg capsule,delayed release 20 mg PO BID 05/08/24 semaglutide 0.25 mg or 0.5 mg (2 mg/1.5 mL) subcutaneous pen injector (Ozempic) 0.5 mg subcut QWEEK 05/08/24 gabapentin 300 mg capsule See Rx Instructions PO BID #360 caps 05/09/24 methylprednisolone acetate 80 mg/mL suspension for injection (Depo-Medrol) 80 mg intra-articular ONCE #1 mL 05/09/24 trazodone 150 mg tablet 150 mg PO HS #90 tabs 05/09/24 Allergies Allergy/AdvReac Type Severity Reaction Status Date / Time Iodinated Contrast Media Allergy Hives Verified 12/17/22 13:12 (Iodinated Contrast Media - IV Dye) Sulfa (Sulfonamide Allergy Unknown Verified 12/17/22 13:12 Antibiotics) amoxicillin AdvReac Severe Diarrhea Verified 05/08/24 14:17 [email or web address] (From Ambien) AdvReac Severe epistaxis Verified 05/08/24 14:17 Vital Signs O2 Saturation: 93 Patient Review Patient Review Pertinent Tests Reviewed [facility] Medical History Medical History (Updated 07/04/24 @ 01:30 by Belkis Ott MD) History of depression ADD (attention deficit disorder) Crohn's disease dx in , not symptomatic Nephrolithiasis Meralgia paresthetica of left side Occipital neuralgia Surgical History Surgical History (Updated 05/09/24 @ 16:15 by Carlo Ferrer MD) H/O colonoscopy 02/2024, adenomatous polyps x 2, recall 2030 S/P lumbar laminectomy 11/2023, L2-L5 Status post left partial knee replacement 05/2023, medial compartment, 2nd surgery for pulled sutures H/O breast surgery 03/2023, re-excision H/O right mastectomy 02/2023 H/O esophagogastroduodenoscopy 12/2022, benign biopsies Status post right partial knee replacement 05/2022, medial compartment, Dr. Wheeler H/O bilateral cataract extraction H/O colonoscopy 07/2018, 05/2014, 05/2011, hx of adenomatous polyps H/O section Family History Family History (Updated 05/09/24 @ 16:18 by Carlo Ferrer MD) Mother Alzheimers disease Congestive heart failure Father Primary squamous cell carcinoma of throat Sister Brain aneurysm Aunt Brain aneurysm Abdominal aortic aneurysm Social History Social History (Updated 05/09/24 @ 16:20 by Carlo Ferrer MD) Smoking Status: Never smoker Second hand tobacco smoke exposure: No Do you dip or chew tobacco?: No Do you vape?: No Living arrangement: At home Marital Status: Single Living Condition: Alone Relationship: Level: Independent Do you feel safe in your home environment?: Yes Suffered physical, verbal, emotional, or financial abuse?: No History of Abuse: No ETOH Use: None Substance Use: denies use Are you sexually active?: No 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 The risk, benefits, alternatives were discussed with the patient and daughter. Specific risks of infection, bleeding, injury to adjacent structures, need for additional procedures, failure of therapy, anesthesia risks were discussed The patient states understanding and consents to the above plan She has been marked and consented The daughter is at bedside and witnesses this and also consents to this She will return to the ER afterwards as there are no beds in the hospital
[2024-07-04] MEDS: LACTATED RINGERS 1,000 ML IV ONE (01:33)
[2024-07-04] MEDS ORDERED: SUCCINYLCHOLINE 200 MG/10 ML VIAL ONE (02:03)
[2024-07-04] MEDS ORDERED: PROPOFOL 200 MG/20 ML VIAL IVP ONE (02:03)
[2024-07-04] MEDS ORDERED: fentaNYL 100 MCG/2 ML VIAL ONE (02:06)
[2024-07-04] MEDS ORDERED: LIDOCAINE 2% URO-JET 5 ML SYRINGE UR ONE (02:06)
[2024-07-04] MEDS ORDERED: PHENYLEPHRINE 10 MG/ML VIAL ONE (02:07)
[2024-07-04 02:45] LABS: LACTIC ACID, VENOUS 2.9 mmol/L (0.5-2.2)
[2024-07-04] MEDS ORDERED: ONDANSETRON 4 MG/2 ML VIAL ONE (02:50)
--- NOTE | 2024-07-04 02:54 | OPERATIVE REPORT ---
Operative Report General Procedure Data: Operation Date: 07/04/24 02:15 Proposed Procedures p Cystoscopy With Ureteral Stent Placement(Right) - Jose Dudley MD Anesthesia Type General Pre-Op Diagnosis: right ureteral stone, sepsis Post Op Diagnosis: right ureteral stone, sepsis Procedure Note Findings: right obstruction, contrast in kidney Complications: none Other Other Information/Narrative: After informed consent was obtained the patient was brought to the OR and laid in the supine position. The patient was anesthetized per anesthesia protocols and prepped draped in the usual sterile fashion in the dorsolithotomy position. A 22 [place] cystoscope was advanced easily into urinary bladder. Bladder was inspected and full. She is noted to have diffusely erythematous bladder mucosa and she was noted to have cloudy urine. Her bladder was emptied. Her right ureteral orifice was identified. Fluoroscopy could not identify it that she had prior contrast for CT scan showing severe hydronephrosis with some proximal tortuosity of her proximal ureter. There was an abrupt transition. No stone was seen A sensor wire was placed up her right ureteral orifice up into the kidney. A 6 [place] 24 cm stent was placed with good curling in the kidney and good curling noted in the bladder. There was immediate efflux of cloudy urine. Her bladder was emptied and Uro-Jet was placed This concluded the procedure the patient tolerated the procedure well. She was brought to the PACU without further incident she will be going to the ICU after this for further monitoring. She will need definitive ureteroscopy as an outpatient
[2024-07-04] MEDS ORDERED: ONDANSETRON 4 MG/2 ML VIAL IVP PRN (03:06)
[2024-07-04] MEDS ORDERED: fentaNYL 100 MCG/2 ML VIAL IVP PRN (03:06)
[2024-07-04] MEDS ORDERED: HYDROmorphone 0.5 MG/0.5 ML SYRINGE IVP PRN (03:06)
[2024-07-04] MEDS ORDERED: NALOXONE 0.4 MG/ML VIAL IVP PRN (03:06)
[2024-07-04] MEDS ORDERED: MORPHINE 2 MG/ML CARPUJECT IVP PRN (03:06)
[2024-07-04] MEDS ORDERED: ATROPINE ABBOJECT 1 MG/10 ML SYRINGE IVP PRN (03:06)
--- NOTE | 2024-07-04 03:09 | ANESTHESIA PROCEDURE NOTE ---
Pre-Anesthesia VS, & Labs Diagnosis Surgical Diagnosis:: right ureteral obstruction Procedure Procedure: Cystoscopy and right ureteral stent placement Vitals Vital Signs: Temp Pulse Resp BP Pulse Ox 37.1 C 117 H 20 95/58 L 95 07/04/24 01:36 07/04/24 01:36 07/04/24 01:36 07/04/24 01:36 07/04/24 01:36 NPO NPO: >8 hours Is Patient ?: Not Applicable Lab Results Current Lab Results: Laboratory Tests 07/04/24 01:49: POC Whole Bld Glucose 127 07/03/24 22:34: WBC 7.8, RBC 4.24, Hgb 12.3, Hct 38.1, MCV 89.9, MCH 29.0, MCHC 32.3, RDW 13.0, Plt Count 387, MPV 9.8, Neut # (Auto) Not Reportable, Lymph # (Auto) Not Reportable, [place] # (Auto) Not Reportable, Eos # (Auto) Not Reportable, Baso # (Auto) Not Reportable, Absolute Nucleated RBC Not Reportable, Total Counted 100, Band Neuts % (Manual) 21 H, Abnorm Lymph % (Manual) 0, Nucleated RBC % Not Reportable, Neutrophils # (Manual) 7.3 H, Lymphocytes # (Manual) 0.5 L, Monocytes # (Manual) 0.0, Eosinophils # (Manual) 0.0, Basophils # (Manual) 0.0, Differential Comment MANUAL DIFFERENTIAL, WBC Morphology NORMAL APPEARANCE, Platelet Estimate NORMAL (130-450,000), Platelet Morphology NORMAL APPEARANCE, RBC Morph Micro Appear NORMAL APPEARANCE, Sodium 138, Potassium 3.9, Chloride 109, Carbon Dioxide 18 L, Anion Gap 11.0, BUN 19, Creatinine 1.6 H, E stimated GFR (MDRD) 32 L, Glucose 131 H, Lactic Acid 2.1, Calcium 8.8, Total Bilirubin 0.7, AST 27, ALT 19, Alkaline Phosphatase 103, Total Protein 7.0, Albumin 3.4, Globulin 3.6, Albumin/Globulin Ratio 0.9 L Lab results reviewed: Yes 07/03/24 22:34 07/03/24 22:34 Meds/Allgy Home Medications Ambulatory Orders Medication Instructions Recorded Confirmed atorvastatin 10 mg tablet 10 mg PO DAILY #90 tabs 01/30/24 05/06/24 celecoxib 100 mg capsule 100 mg PO BID 05/06/24 05/06/24 losartan 50 mg tablet 50 mg PO QDAY 05/06/24 05/06/24 omeprazole 20 mg capsule,delayed 20 mg PO BID 05/08/24 05/09/24 release semaglutide 0.25 mg or 0.5 mg (2 0.5 mg subcut QWEEK 05/08/24 05/08/24 mg/1.5 mL) subcutaneous pen injector (Ozempic) gabapentin 300 mg capsule See Rx Instructions PO BID #360 05/09/24 05/09/24 caps methylprednisolone acetate 80 80 mg intra-articular ONCE #1 mL 05/09/24 05/09/24 mg/mL suspension for injection (Depo-Medrol) trazodone 150 mg tablet 150 mg PO HS #90 tabs 05/09/24 05/09/24 Allergies Allergies Allergy/AdvReac Type Severity Reaction Status Date / Time Iodinated Contrast Media Allergy Hives Verified 12/17/22 13:12 (Iodinated Contrast Media - IV Dye) Sulfa (Sulfonamide Allergy Unknown Verified 12/17/22 13:12 Antibiotics) amoxicillin AdvReac Severe Diarrhea Verified 05/08/24 14:17 [email or web address] (From Ambien) AdvReac Severe epistaxis Verified 05/08/24 14:17 PFSH Active Problems All Active Problems (Updated 07/04/24 @ 01:30 by Belkis Ott MD) Hydronephrosis with urinary obstruction due to ureteral calculus (Acute) Acute pyelonephritis (Acute) Sepsis (Acute) Tear of supraspinatus tendon (Acute) Ductal carcinoma in situ (DCIS) of right breast (Acute) Type 2 diabetes mellitus with peripheral neuropathy (Acute) Essential hypertension (Acute) Mixed hyperlipidemia (Acute) Fatty liver disease, nonalcoholic (Acute) Obstructive sleep apnea, adult (Acute) GERD (gastroesophageal reflux disease) (Acute) Right rotator cuff tear (Acute) Tinnitus of both ears (Acute) Head injury (Acute) Adenomatous colon polyp (Acute) Asymptomatic cholelithiasis (Acute) Insomnia (Acute) Degenerative joint disease (DJD) of lumbar spine (Acute) Acne rosacea (Acute) Medical History Medical History (Updated 07/04/24 @ 01:30 by Belkis Ott MD) History of depression ADD (attention deficit disorder) Crohn's disease dx in , not symptomatic Nephrolithiasis Meralgia paresthetica of left side Occipital neuralgia Surgical History Surgical History (Updated 05/09/24 @ 16:15 by Carlo Ferrer MD) H/O colonoscopy 02/2024, adenomatous polyps x 2, recall 2030 S/P lumbar laminectomy 11/2023, L2-L5 Status post left partial knee replacement 05/2023, medial compartment, 2nd surgery for pulled sutures H/O breast surgery 03/2023, re-excision H/O right mastectomy 02/2023 H/O esophagogastroduodenoscopy 12/2022, benign biopsies Status post right partial knee replacement 05/2022, medial compartment, Dr. Wheeler H/O bilateral cataract extraction H/O colonoscopy 07/2018, 05/2014, 05/2011, hx of adenomatous polyps H/O section Family History Family History (Updated 05/09/24 @ 16:18 by Carlo Ferrer MD) Mother Alzheimers disease Congestive heart failure Father Primary squamous cell carcinoma of throat Sister Brain aneurysm Aunt Brain aneurysm Abdominal aortic aneurysm Social History Social History (Updated 05/09/24 @ 16:20 by Carlo Ferrer MD) Smoking Status: Never smoker Second hand tobacco smoke exposure: No Do you dip or chew tobacco?: No Do you vape?: No Living arrangement: At home Marital Status: Single Living Condition: Alone Relationship: Level: Independent Do you feel safe in your home environment?: Yes Suffered physical, verbal, emotional, or financial abuse?: No History of Abuse: No ETOH Use: None Substance Use: denies use Are you sexually active?: No 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 Took semaglutide today plus history of DM) Consent for Procedure(s) Verified and Reviewed: Yes Code Status: Attempt Resuscitation ASA Classification ASA classification: 3-Severe systemic disease Is this case an emergency?: Yes
--- NOTE | 2024-07-04 03:18 | ANESTHESIA POST OP EVALUATION ---
Anesthesia Post Eval Post Anesthesia Eval Vitals: Last Vital Signs Temp 36.4 C L 07/04/24 03:05 Pulse 112 H 07/04/24 03:05 Resp 16 07/04/24 03:05 BP 107/59 L 07/04/24 03:05 Pulse Ox 95 07/04/24 03:05 CV Function Including HR & BP: Stable Pain Control: Satisfactory Nausea & Vomiting: Negative Mental Status: Baseline Respiratory Status: Airway Patent Hydration Status: Satisfactory Anesthesia Complications: None
[2024-07-04 03:22] LABS: B. PARAPERTUSSIS- RESP PCR PAN NOT DETECTED; B. PERTUSSIS- RESP PCR PANEL NOT DETECTED; C. PNEUMONIAE- RESP PCR PANEL NOT DETECTED; CORONAVIRUS 229E-RESP PCR NOT DETECTED; CORONAVIRUS HKU1-RESP PCR NOT DETECTED; CORONAVIRUS NL63-RESP PCR NOT DETECTED; CORONAVIRUS OC43-RESP PCR NOT DETECTED; HUMAN METAPNEUMOVIRUS NOT DETECTED; INFLUENZA A H1 2009- RESP PCR DETECTED; INFLUENZA A- RESP PCR PANEL NOT DETECTED; INFLUENZA B - RESP PCR PANEL NOT DETECTED; M. PNEUMONIAE- RESP PCR PANEL NOT DETECTED; PARAINFLUENZA VIRUS 1 NOT DETECTED; PARAINFLUENZA VIRUS 2 NOT DETECTED; PARAINFLUENZA VIRUS 4 NOT DETECTED; RHINOVIRUS/ENTEROVIRUS NOT DETECTED; RSV- RESP PCR PANEL NOT DETECTED; SARS-CoV-2 -RESP PCR PANEL NOT DETECTED
[2024-07-04] MEDS: LACTATED RINGERS 500 ML IV ONE (03:50)
[2024-07-04] MEDS ORDERED: ACETAMINOPHEN 1,000 MG/100 ML 1,000 MG/100 ML BAG IV ONE (03:56)
[2024-07-04] MEDS: ACETAMINOPHEN 1,000 MG/100 ML 1,000 MG/100 ML BAG IV ONE (03:57)
--- NOTE | 2024-07-04 04:04 | HISTORY & PHYSICAL EXAMINATION ---
Chief Complaint Chief Complaint Chief Complaint: generalized weakness, cough, diarrhea History of Present Illness Admitted From Admitted From:: home History Obtained From History obtained from: patient, her daughter, chart review Exam Limitations: telemedicine, patient seen post op in PACU History of Present Illness HPI Comment/Other: Ms Cobian is a 73-year-old female with history of type 2 diabetes, hypertension, hyperlipidemia, obstructive sleep apnea, GERD, insomnia, presents to ER with complaint of generalized weakness, cough and diarrhea. Onset of symptoms ~2 weeks ago when she had a GI illness, diarrhea. She has been having fevers the past 2-3 days, T 102 yesterday and per daughter patient was confused so she called EMS. In the ER she was found to have abdominal tenderness, CT abd/pelvis was obtained and showed R ureteral stones with R hydronephrosis. CTA chest negative for PE. Urology consulted and patient was taken to OR emergently, she is now status post cystoscopy and R ureteral stent placement. Borderline low blood pressures in ER, received total 2 L IV fluid boluses pre- op. Pressors were ordered but have not yet started. She received additional 500 cc IV fluid bolus intra-op. Patient is seen postoperatively in PACU, she is tachycardic low 100s, MAP ~60, administering additional IV fluid bolus with plan to place central line and initiate pressor support. Patient feels ok, but is having pain. She denies fevers/chills at this time, denies palpitations, chest pain. Limited history as patient is currently in PACU, feels tired and in pain, her daughter is with her at bedside. Review of Systems Status of ROS: unobtainable due to medical condition (limited, patient immediately post op in PACU) Constitutional Reports: Fatigue, Fever, Chills, Malaise and Weakness Cardiovascular Denies: chest pain, palpitations or shortness of breath with exertion Respiratory Reports: Cough (prior to admission ); Denies: Shortness of breath Gastrointestinal Reports: Abdominal pain, Nausea and Diarrhea Genitourinary Denies: Painful urination or Blood in urine Integumentary/Breast Denies: Rash or Itching Neurological Reports: General weakness Endocrine Reports: Fatigue PFSH Active Problems All Active Problems (Updated 07/04/24 @ 01:30 by Belkis Ott MD) Hydronephrosis with urinary obstruction due to ureteral calculus (Acute) Acute pyelonephritis (Acute) Sepsis (Acute) Tear of supraspinatus tendon (Acute) Ductal carcinoma in situ (DCIS) of right breast (Acute) Type 2 diabetes mellitus with peripheral neuropathy (Acute) Essential hypertension (Acute) Mixed hyperlipidemia (Acute) Fatty liver disease, nonalcoholic (Acute) Obstructive sleep apnea, adult (Acute) GERD (gastroesophageal reflux disease) (Acute) Right rotator cuff tear (Acute) Tinnitus of both ears (Acute) Head injury (Acute) Adenomatous colon polyp (Acute) Asymptomatic cholelithiasis (Acute) Insomnia (Acute) Degenerative joint disease (DJD) of lumbar spine (Acute) Acne rosacea (Acute) Medical History Medical History (Updated 07/04/24 @ 01:30 by Beliks Ott MD) History of depression ADD (attention deficit disorder) Crohn's disease dx in , not symptomatic Nephrolithiasis Meralgia paresthetica of left side Occipital neuralgia Surgical History Surgical History (Updated 05/09/24 @ 16:15 by Carlo Ferrer MD) H/O colonoscopy 02/2024, adenomatous polyps x 2, recall 2030 S/P lumbar laminectomy 11/2023, L2-L5 Status post left partial knee replacement 05/2023, medial compartment, 2nd surgery for pulled sutures H/O breast surgery 03/2023, re-excision H/O right mastectomy 02/2023 H/O esophagogastroduodenoscopy 12/2022, benign biopsies Status post right partial knee replacement 05/2022, medial compartment, Dr. Wheeler H/O bilateral cataract extraction H/O colonoscopy 07/2018, 05/2014, 05/2011, hx of adenomatous polyps H/O section Family History Family History (Updated 05/09/24 @ 16:18 by Carlo Ferrer MD) Mother Alzheimers disease Congestive heart failure Father Primary squamous cell carcinoma of throat Sister Brain aneurysm Aunt Brain aneurysm Abdominal aortic aneurysm Social History Social History (Updated 05/09/24 @ 16:20 by Carlo Ferrer MD) Smoking Status: Never smoker Second hand tobacco smoke exposure: No Do you dip or chew tobacco?: No Do you vape?: No Living arrangement: At home Marital Status: Single Living Condition: Alone Relationship: Level: Independent Do you feel safe in your home environment?: Yes Suffered physical, verbal, emotional, or financial abuse?: No History of Abuse: No ETOH Use: None Substance Use: denies use Are you sexually active?: No 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 Service: No POLST Patient has POLST: No Meds/Allgy Home Medications Ambulatory Orders Medication Instructions Recorded Confirmed atorvastatin 10 mg tablet 10 mg PO DAILY #90 tabs 01/30/24 05/06/24 celecoxib 100 mg capsule 100 mg PO BID 05/06/24 05/06/24 losartan 50 mg tablet 50 mg PO QDAY 05/06/24 05/06/24 omeprazole 20 mg capsule,delayed 20 mg PO BID 05/08/24 05/09/24 release semaglutide 0.25 mg or 0.5 mg (2 0.5 mg subcut QWEEK 05/08/24 05/08/24 mg/1.5 mL) subcutaneous pen injector (Ozempic) gabapentin 300 mg capsule See Rx Instructions PO BID #360 05/09/24 05/09/24 caps methylprednisolone acetate 80 80 mg intra-articular ONCE #1 mL 05/09/24 05/09/24 mg/mL suspension for injection (Depo-Medrol) trazodone 150 mg tablet 150 mg PO HS #90 tabs 05/09/24 05/09/24 Allergies Allergies Allergy/AdvReac Type Severity Reaction Status Date / Time Iodinated Contrast Media Allergy Hives Verified 12/17/22 13:12 (Iodinated Contrast Media - IV Dye) Sulfa (Sulfonamide Allergy Unknown Verified 12/17/22 13:12 Antibiotics) amoxicillin AdvReac Severe Diarrhea Verified 05/08/24 14:17 [email or web address] (From Ambien) AdvReac Severe epistaxis Verified 05/08/24 14:17 Exam Constitutional normal general appearance, no apparent distress (mild distress due to pain post op) and alert HENMT normocephalic, head/scalp atraumatic and hearing grossly normal bilaterally Respiratory normal respiratory effort Cardiovascular normal heart rate noted (tachycardia 110s on campus monitor ) Psychiatry mental status grossly normal, oriented x3 and cooperative Sepsis Event Note (H) Evaluation Current Stage of Sepsis: Septic shock Possible source of Sepsis: positive Genitourinary Sepsis Criteria Sepsis Criteria: Recorded Heart Rate greater than 90 bpm, MAP less than 65 mmHg, SBP less than 90 mmHg and Metabolic: lactate > 2 mmol/L Conclusion/Plan Lab Results Lab results reviewed: Yes 07/03/24 22:34 07/03/24 22:34 Diagnostic Imaging Results Diagnostic Imaging Results: positive Final report reviewed Other Other Results/Comments: Assessment/Plan: Septic shock secondary to obstructive uropathy and pyelonephritis -Patient is status post R ureteral stent placement -CT abd: 2 right mid ureteral calculi measuring 8 and 6 mm with moderate to severe upstream hydronephrosis and perinephric stranding consistent with obstructive uropathy -Continue broad spectrum antibiotics IV Zosyn -Follow up urine culture, blood cultures -IV pressor support PRN for MAP < 65 -D/w RN, ordered central line placement -Additional IV fluid bolus ordered -Lactic acidosis 2.1 -> 2.9 -Repeat lactic pending -No elevated leukocytosis, afebrile, trend labs BERNARDA Severe R hydronephrosis status post R ureteral stent 07/04/24 -Secondary to obstructive uropathy, Cr 1.6 -Urology consulted, patient is post op -Trend labs -IV fluids and urological intervention as above -Pain control DM II -SSI Hx breast cancer -Noted HTN -Hold home antihypertensives HLD -Statin GERD -PPI Incidental finding on CT -Right upper lobe 1.1 x 1.0 solid pulmonary nodule -Follow-up CT chest in 3 months versus PET/CT DVT ppx: Heparin sc Full code Admit to ICU. Telemedicine Consult Details Provider Location & Consult Time Telemedicine consultation conducted via videoconferencing?: Yes List names and roles of persons who participated in consult:: , RN, patient/her daughter, ER provider (phone) Telemedicine provider location:: [facility]
[2024-07-04] MEDS: SODIUM CHLORIDE 0.9% 1,000 ML IV SCH (04:44)
[2024-07-04] MEDS: PIPERACILLIN/TAZOBACTAM 3.375 GM in SODIUM CHLORIDE 0.9% MINIBAG 100 ML IV SCH (04:44)
[2024-07-04] MEDS: NOREPINEPHRINE/0.9 % NS 8 MG/250 ML BAG IV SCH (05:12)
[2024-07-04] MEDS: HYDROmorphone 0.5 MG/0.5 ML SYRINGE IVP PRN (05:15)
[2024-07-04 06:06] LABS: VBG PH 7.444 (7.31-7.41)
[2024-07-04 06:11] LABS: BASOPHILS % (AUTO) 0.2 %; HGB - HEMOGLOBIN 9.9 g/dL (12.0-16.0); LYMPHOCYTES % (AUTO) 1.7 %; MEAN CORPUSCULAR HEMOGLOBIN 29.2 pg (27.0-31.0); MEAN CORPUSCULAR HGB CONC 31.9 g/dL (32.0-36.0); MEAN CORPUSCULAR VOLUME 91.4 fL (81.0-99.0); MEAN PLATELET VOLUME 9.9 fL (7.9-10.8); MONOCYTES % (AUTO) 1.1 %; NEUTROPHILS % (AUTO) 94.8 %; PLT - PLATELET COUNT 338 10^3/uL (130-450); RED BLOOD COUNT 3.39 10^6/uL (4.20-5.40); RED CELL DISTRIBUTION WIDTH 13.2 % (12.0-15.0)
[2024-07-04 06:27] LABS: ABNORMAL LYMPHS % (MANUAL) 0 %; LYMPHOCYTES % (MANUAL) 0 %
[2024-07-04 06:30] LABS: CALCIUM 7.7 mg/dL (8.5-10.3); CREATININE 1.5 mg/dL (0.6-1.3); POTASSIUM 4.5 mmol/L (3.5-4.5)
[2024-07-04 06:51] LABS: BAND NEUTROPHILS % (MANUAL) 20 %; DIFFERENTIAL COMMENT MANUAL DIFFERENTIAL; MONOCYTES # (MANUAL) 0.7 10^3/uL (0.0-1.0); NEUTROPHILS # (MANUAL) 36.3 10^3/uL (1.5-6.6); PLATELET ESTIMATE, MANUAL NORMAL (130-450,000) (NORMAL); PLATELET MORPHOLOGY NORMAL APPEARANCE (NORMAL); RBC MORPHOLOGY (MULTIPLE) NORMAL APPEARANCE (NORMAL); WBC MORPHOLOGY (MULTIPLE) NORMAL APPEARANCE (NORMAL)
[2024-07-04 06:52] LABS: MAGNESIUM 1.3 mg/dL (1.7-2.3); PHOSPHORUS 2.8 mg/dL (2.5-5.0)
--- NOTE | 2024-07-04 07:53 | PROVIDER PROGRESS NOTE ---
Subjective Prog Note Date Prog Note Date: 07/04/24 Prog Note Time: 07:52 Subjective Pt reports feeling: Improved Subjective: feels better Current Medications Current Medications Current Medications: Current Medications Generic Name Dose Route Start Last Admin Trade Name Freq PRN Reason Stop Dose Admin Acetaminophen 650 mg 07/04/24 03:23 Acetaminophen 325 Mg Tablet PO Q4HR PRN Pain 1 to 4, or Fever Calcium Carbonate/Glycine 1,250 mg 07/04/24 08:00 Calcium Carbonate Chew 500 Mg Tablet PO 07/04/24 12:01 Q4H NATALIE Protocol Heparin Sodium (Porcine) 5,000 unit 07/04/24 09:00 Heparin 5,000 Unit/Ml Vial SUBQ BID NATALIE Hydromorphone HCl 0.5 mg 07/04/24 03:23 07/04/24 05:15 Hydromorphone 0.5 Mg/0.5 Ml Syringe IVP 0.5 mg Q2H PRN Administration Pain 8 to 10 Norepinephrine/Sodium Chloride 8 mg in 250 mls @ 15 mls/hr 07/04/24 02:00 07/04/24 05:12 Levophed 8 Mg/250-0.9% Nacl IV Not Given .[id number] NATALIE Protocol 8 MCG/MIN Lactated Ringer's 1,000 mls @ 100 mls/hr 07/04/24 04:00 Lr IV 07/04/24 13:59 .Q10H NATALIE Sodium Chloride 1,000 mls @ 100 mls/hr 07/04/24 04:00 07/04/24 04:44 Normal Saline 0.9% IV 100 mls/hr .Q10H NATALIE Administration Piperacillin Sod/Tazobactam 100 mls @ 200 mls/hr 07/04/24 04:00 07/04/24 06:29 Sod 3.375 gm/ Sodium Chloride IV Infused Q6H NATALIE Infusion Magnesium Sulfate 2 gm in 50 mls @ 50 mls/hr 07/04/24 08:00 Magnesium Sulfate IV 07/04/24 09:59 Q1H NATALIE Protocol Insulin Human Lispro 1 - 5 unit 07/04/24 08:00 Insulin Lispro 300 Unit/3 Ml Pen SUBQ 0800,1200,1700,2100 NATALIE Protocol Ondansetron HCl 4 mg 07/04/24 03:23 Ondansetron 4 Mg/2 Ml Vial IVP Q6HR PRN Nausea / Vomiting Sodium Chloride 10 ml 07/04/24 09:00 Sodium Chloride Flush 0.9% 10 Ml Syringe IVP 0100,0900,1700 NATALIE Sodium Chloride 10 ml 07/04/24 03:23 Sodium Chloride Flush 0.9% 10 Ml Syringe IVP PRN PRN NEEDED PER PROVIDER ORDERS Objective Vital Signs/Intake & Output Reviewed Vital Signs: Yes Vital Signs: Vital Signs x48h Temp Pulse Pulse Resp BP BP Pulse Ox 07/04/24 07:00 93 18 125/58 L 92 07/04/24 06:00 36.9 C 101 H 20 97/57 L 90 L 07/04/24 04:55 106 H 94/58 L 96 07/04/24 04:15 109 H 97/54 L 93 07/04/24 04:00 37.4 C 114 H 22 102/68 94 07/04/24 03:45 113 H 23 79/66 L 92 07/04/24 03:30 37.2 C 112 H 22 87/55 L 93 07/04/24 03:15 37.5 C 119 H 23 115/69 94 07/04/24 03:10 120 H 22 103/66 95 07/04/24 03:05 36.4 C L 112 H 16 107/59 L 95 07/04/24 03:05 119 H 26 H 91/63 94 07/04/24 03:00 37.0 C 119 H 26 H 92/52 L 98 07/04/24 01:36 37.1 C 117 H 20 95/58 L 95 07/04/24 01:14 93 07/04/24 01:03 119 H 26 H 93/50 L 93 07/04/24 00:00 36.8 C 119 H 24 82/52 L 95 O2 Flow Rate 07/04/24 07:00 2 07/04/24 06:00 2 07/04/24 04:55 2 07/04/24 04:15 2 07/04/24 04:00 07/04/24 03:45 07/04/24 03:30 07/04/24 03:15 07/04/24 03:10 07/04/24 03:05 07/04/24 03:05 07/04/24 03:00 07/04/24 01:36 07/04/24 01:14 07/04/24 01:03 07/04/24 00:00 Intake & Output: Intake & Output 07/01/24 07/02/24 07/03/24 07/04/24 23:59 23:59 23:59 23:59 Intake Total 1200 / 1200 Output Total 200 / 200 Balance 1000 / 1000 Weight (kg) 83.5 kg 96.5 kg Objective General Appearance: positive No acute distress (vitals improved. Has frequent urination. Leukocytosis massively increased to 37. Blood cultures sent yesterday) Lab Results 07/04/24 05:52 07/04/24 05:52 Other Labs: Lab Results x24hrs 07/04/24 07/04/24 07/04/24 Range/Units 07:41 06:50 05:52 WBC 37.0 H* (4.8-10.8) x10^3/uL RBC 3.39 L (4.20-5.40) 10^6/uL Hgb 9.9 L (12.0-16.0) g/dL Hct 31.0 L (37.0-47.0) % MCV 91.4 (81.0-99.0) fL MCH 29.2 (27.0-31.0) pg MCHC 31.9 L (32.0-36.0) g/dL RDW 13.2 (12.0-15.0) % Plt Count 338 (130-450) 10^3/uL MPV 9.9 (7.9-10.8) fL Neut # (Auto) Not Reportable Lymph # (Auto) Not Reportable [place] # (Auto) Not Reportable Eos # (Auto) Not Reportable Baso # (Auto) Not Reportable Absolute Nucleated RBC Not Reportable Total Counted 100 Band Neuts % (Manual) 20 H (0 - 10) % Abnorm Lymph % (Manual) 0 % Nucleated RBC % Not Reportable Neutrophils # (Manual) 36.3 H (1.5-6.6) 10^3/uL Lymphocytes # (Manual) 0.0 L (1.5-3.5) 10^3/uL Monocytes # (Manual) 0.7 (0.0-1.0) 10^3/uL Eosinophils # (Manual) 0.0 (0-0.7) 10^3/uL Basophils # (Manual) 0.0 (0-0.1) 10^3/uL Differential Comment MANUAL DIFFERENTIAL WBC Morphology NORMAL APPEARANCE (NORMAL) Platelet Estimate NORMAL (130-450,000) (NORMAL) Platelet Morphology NORMAL APPEARANCE (NORMAL) RBC Morph Micro Appear NORMAL APPEARANCE (NORMAL) VBG pH 7.444 H (7.31-7.41) Ionized Calcium 1.10 (1.09-1.30) mmol/L Sodium 136 (135-145) mmol/L Potassium 4.5 (3.5-4.5) mmol/L Chloride 109 (101-111) mmol/L Carbon Dioxide 21 (21-32) mmol/L Anion Gap 6.0 (6-13) BUN 17 (6-20) mg/dL Creatinine 1.5 H (0.6-1.3) mg/dL Estimated GFR (MDRD) 34 L (>89) Glucose 207 H (74-104) mg/dL POC Whole Bld Glucose 196 (70-100) mg/dL Lactic Acid 1.2 (0.5-2.2) mmol/L Calcium 7.7 L (8.5-10.3) mg/dL Phosphorus 2.8 (2.5-5.0) mg/dL Magnesium 1.3 L (1.7-2.3) mg/dL Total Bilirubin (0.2-1.0) mg/dL AST (10-42) IU/L ALT (10-60) IU/L Alkaline Phosphatase (42-121) IU/L Total Protein (6.4-8.9) g/dL Albumin (3.2-5.5) g/dL Globulin (2.1-4.2) g/dL Albumin/Globulin Ratio (1.0-2.2) Urine Color Urine Clarity (CLEAR) Urine pH (5.0-7.5) PH Ur Specific [place] (1.002-1.030) Urine Protein (NEGATIVE) mg/dL Urine Glucose (UA) (NEGATIVE) mg/dL Urine Ketones (NEGATIVE) mg/dL Urine Occult Blood (NEGATIVE) Urine Nitrite (NEGATIVE) Urine Bilirubin (NEGATIVE) Urine Urobilinogen (NORMAL) E.U./dL Ur Leukocyte Esterase (NEGATIVE) Urine RBC (0-5) /HPF Urine WBC (0-5) /HPF Ur Squamous Epith Cells (<= Few) Urine Bacteria (None Seen) /HPF Urine Culture Comments Nasal Adenovirus (PCR) Nasal B. parapertussis DNA (PCR) Nasal Coronavir 229E PCR Nasal Coronavir HKU1 PCR Nasal Coronavir NL63 PCR Nasal Coronavir OC43 PCR Nasal Enterovir/Rhinovir PCR Nasal Influ A H1 2009 PCR Nasal Influenza B PCR Nasal Influenza A PCR Nasal Parainfluen 1 PCR Nasal Parainfluen 2 PCR Nasal Parainfluen 3 PCR Nasal Parainfluen 4 PCR Nasal RSV (PCR) Nasal Screen MRSA (PCR) (NEGATIVE) Nasal B.pertussis DNA PCR Nasal C.pneumoniae (PCR) Jesse Human Metapneumo PCR Nasal M.pneumoniae (PCR) Nasal SARS-CoV-2 (PCR) 07/04/24 07/04/24 07/04/24 Range/Units 04:30 03:11 02:23 WBC (4.8-10.8) x10^3/uL RBC (4.20-5.40) 10^6/uL Hgb (12.0-16.0) g/dL Hct (37.0-47.0) % MCV (81.0-99.0) fL MCH (27.0-31.0) pg MCHC (32.0-36.0) g/dL RDW (12.0-15.0) % Plt Count (130-450) 10^3/uL MPV (7.9-10.8) fL Neut # (Auto) Lymph # (Auto) [place] # (Auto) Eos # (Auto) Baso # (Auto) Absolute Nucleated RBC Total Counted Band Neuts % (Manual) (0 - 10) % Abnorm Lymph % (Manual) % Nucleated RBC % Neutrophils # (Manual) (1.5-6.6) 10^3/uL Lymphocytes # (Manual) (1.5-3.5) 10^3/uL Monocytes # (Manual) (0.0-1.0) 10^3/uL Eosinophils # (Manual) (0-0.7) 10^3/uL Basophils # (Manual) (0-0.1) 10^3/uL Differential Comment WBC Morphology (NORMAL) Platelet Estimate (NORMAL) Platelet Morphology (NORMAL) RBC Morph Micro Appear (NORMAL) VBG pH (7.31-7.41) Ionized Calcium (1.09-1.30) mmol/L Sodium (135-145) mmol/L Potassium (3.5-4.5) mmol/L Chloride (101-111) mmol/L Carbon Dioxide (21-32) mmol/L Anion Gap (6-13) BUN (6-20) mg/dL Creatinine (0.6-1.3) mg/dL Estimated GFR (MDRD) (>89) Glucose (74-104) mg/dL POC Whole Bld Glucose 137 (70-100) mg/dL Lactic Acid 2.9 H (0.5-2.2) mmol/L Calcium (8.5-10.3) mg/dL Phosphorus (2.5-5.0) mg/dL Magnesium (1.7-2.3) mg/dL Total Bilirubin (0.2-1.0) mg/dL AST (10-42) IU/L ALT (10-60) IU/L Alkaline Phosphatase (42-121) IU/L Total Protein (6.4-8.9) g/dL Albumin (3.2-5.5) g/dL Globulin (2.1-4.2) g/dL Albumin/Globulin Ratio (1.0-2.2) Urine Color Urine Clarity (CLEAR) Urine pH (5.0-7.5) PH Ur Specific [place] (1.002-1.030) Urine Protein (NEGATIVE) mg/dL Urine Glucose (UA) (NEGATIVE) mg/dL Urine Ketones (NEGATIVE) mg/dL Urine Occult Blood (NEGATIVE) Urine Nitrite (NEGATIVE) Urine Bilirubin (NEGATIVE) Urine Urobilinogen (NORMAL) E.U./dL Ur Leukocyte Esterase (NEGATIVE) Urine RBC (0-5) /HPF Urine WBC (0-5) /HPF Ur Squamous Epith Cells (<= Few) Urine Bacteria (None Seen) /HPF Urine Culture Comments Nasal Adenovirus (PCR) Nasal B. parapertussis DNA (PCR) Nasal Coronavir 229E PCR Nasal Coronavir HKU1 PCR Nasal Coronavir NL63 PCR Nasal Coronavir OC43 PCR Nasal Enterovir/Rhinovir PCR Nasal Influ A H1 2009 PCR Nasal Influenza B PCR Nasal Influenza A PCR Nasal Parainfluen 1 PCR Nasal Parainfluen 2 PCR Nasal Parainfluen 3 PCR Nasal Parainfluen 4 PCR Nasal RSV (PCR) Nasal Screen MRSA (PCR) NEGATIVE (NEGATIVE) Nasal B.pertussis DNA PCR Nasal C.pneumoniae (PCR) Jesse Human Metapneumo PCR Nasal M.pneumoniae (PCR) Nasal SARS-CoV-2 (PCR) 07/04/24 07/03/24 Range/Units 01:49 22:34 WBC 7.8 (4.8-10.8) x10^3/uL RBC 4.24 (4.20-5.40) 10^6/uL Hgb 12.3 (12.0-16.0) g/dL Hct 38.1 (37.0-47.0) % MCV 89.9 (81.0-99.0) fL MCH 29.0 (27.0-31.0) pg MCHC 32.3 (32.0-36.0) g/dL RDW 13.0 (12.0-15.0) % Plt Count 387 (130-450) 10^3/uL MPV 9.8 (7.9-10.8) fL Neut # (Auto) Not Reportable Lymph # (Auto) Not Reportable [place] # (Auto) Not Reportable Eos # (Auto) Not Reportable Baso # (Auto) Not Reportable Absolute Nucleated RBC Not Reportable Total Counted 100 Band Neuts % (Manual) 21 H (0 - 10) % Abnorm Lymph % (Manual) 0 % Nucleated RBC % Not Reportable Neutrophils # (Manual) 7.3 H (1.5-6.6) 10^3/uL Lymphocytes # (Manual) 0.5 L (1.5-3.5) 10^3/uL Monocytes # (Manual) 0.0 (0.0-1.0) 10^3/uL Eosinophils # (Manual) 0.0 (0-0.7) 10^3/uL Basophils # (Manual) 0.0 (0-0.1) 10^3/uL Differential Comment MANUAL DIFFERENTIAL WBC Morphology NORMAL APPEARANCE (NORMAL) Platelet Estimate NORMAL (130-450,000) (NORMAL) Platelet Morphology NORMAL APPEARANCE (NORMAL) RBC Morph Micro Appear NORMAL APPEARANCE (NORMAL) VBG pH (7.31-7.41) Ionized Calcium (1.09-1.30) mmol/L Sodium 138 (135-145) mmol/L Potassium 3.9 (3.5-4.5) mmol/L Chloride 109 (101-111) mmol/L Carbon Dioxide 18 L (21-32) mmol/L Anion Gap 11.0 (6-13) BUN 19 (6-20) mg/dL Creatinine 1.6 H (0.6-1.3) mg/dL Estimated GFR (MDRD) 32 L (>89) Glucose 131 H (74-104) mg/dL POC Whole Bld Glucose 127 (70-100) mg/dL Lactic Acid 2.1 (0.5-2.2) mmol/L Calcium 8.8 (8.5-10.3) mg/dL Phosphorus (2.5-5.0) mg/dL Magnesium (1.7-2.3) mg/dL Total Bilirubin 0.7 (0.2-1.0) mg/dL AST 27 (10-42) IU/L ALT 19 (10-60) IU/L Alkaline Phosphatase 103 (42-121) IU/L Total Protein 7.0 (6.4-8.9) g/dL Albumin 3.4 (3.2-5.5) g/dL Globulin 3.6 (2.1-4.2) g/dL Albumin/Globulin Ratio 0.9 L (1.0-2.2) Urine Color YELLOW Urine Clarity SL. CLOUDY (CLEAR) Urine pH 6.0 (5.0-7.5) PH Ur Specific [place] 1.020 (1.002-1.030) Urine Protein 100 H (NEGATIVE) mg/dL Urine Glucose (UA) NEGATIVE (NEGATIVE) mg/dL Urine Ketones NEGATIVE (NEGATIVE) mg/dL Urine Occult Blood MODERATE H (NEGATIVE) Urine Nitrite NEGATIVE (NEGATIVE) Urine Bilirubin NEGATIVE (NEGATIVE) Urine Urobilinogen 0.2 (NORMAL) (NORMAL) E.U./dL Ur Leukocyte Esterase LARGE H (NEGATIVE) Urine RBC 0-5 (0-5) /HPF Urine WBC >25 H (0-5) /HPF Ur Squamous Epith Cells RARE Squamous (<= Few) Urine Bacteria Moderate H (None Seen) /HPF Urine Culture Comments INDICATED Nasal Adenovirus (PCR) NOT DETECTED Nasal B. parapertussis DNA (PCR) NOT DETECTED Nasal Coronavir 229E PCR NOT DETECTED Nasal Coronavir HKU1 PCR NOT DETECTED Nasal Coronavir NL63 PCR NOT DETECTED Nasal Coronavir OC43 PCR NOT DETECTED Nasal Enterovir/Rhinovir PCR NOT DETECTED Nasal Influ A H1 2009 PCR DETECTED A Nasal Influenza B PCR NOT DETECTED Nasal Influenza A PCR NOT DETECTED Nasal Parainfluen 1 PCR NOT DETECTED Nasal Parainfluen 2 PCR NOT DETECTED Nasal Parainfluen 3 PCR NOT DETECTED Nasal Parainfluen 4 PCR NOT DETECTED Nasal RSV (PCR) NOT DETECTED Nasal Screen MRSA (PCR) (NEGATIVE) Nasal B.pertussis DNA PCR NOT DETECTED Nasal C.pneumoniae (PCR) NOT DETECTED Jesse Human Metapneumo PCR NOT DETECTED Nasal M.pneumoniae (PCR) NOT DETECTED Nasal SARS-CoV-2 (PCR) NOT DETECTED Sepsis Event Note (H) Evaluation Current Stage of Sepsis: Septic shock Possible source of Sepsis: positive Genitourinary Sepsis Criteria Sepsis Criteria: Recorded Heart Rate greater than 90 bpm, MAP less than 65 mmHg, SBP less than 90 mmHg and Metabolic: lactate > 2 mmol/L Assessment/Plan Problem List (1) Hydronephrosis with urinary obstruction due to ureteral calculus: Impression: 73yo F with sepsis, UTI, obstructing right ureteral stone s/p emergent stent placement 07/04/24 ~2am. Improving. -follow urine cultures -continue abx for now -must followup with me as outpatient, information in discharge summary placed -Stent and stone must be dealt with within 3 months -UROLOGY SIGNING OFF- call with questions
[2024-07-04] MEDS: INSULIN LISPRO 300 UNIT/3 ML PEN SUBQ SCH ×2 (08:10→12:29)
[2024-07-04] MEDS: HEPARIN 5,000 UNIT/ML VIAL SUBQ SCH (08:10)
[2024-07-04] MEDS: CALCIUM CARBONATE CHEW 500 MG TABLET PO SCH (08:11)
[2024-07-04] MEDS: MAGNESIUM SULFATE 2 GRAM 2 GM/50 ML BAG IV SCH (08:11)
[2024-07-04] MEDS: LACTATED RINGERS 1,000 ML IV SCH (08:29)
[2024-07-04] MEDS: SODIUM CHLORIDE FLUSH 0.9% 10 ML SYRINGE IVP SCH (09:44)
[2024-07-04 11:04] LABS: ESTIMATED AVERAGE GLUCOSE 137 mg/dL (70-100); HEMOGLOBIN A1c% 6.4 % (4.27-6.07)
--- NOTE | 2024-07-04 14:04 | PHARMACY PROGRESS NOTE ---
Best Possible Medication History Admit Date and Time: 07/04/24 0323 Home Medications Medication Instructions Recorded Confirmed Type atorvastatin 10 mg tablet 10 mg PO DAILY #90 tabs 01/30/24 07/04/24 Rx celecoxib 100 mg capsule 100 mg PO BID 05/06/24 07/04/24 History losartan 50 mg tablet 50 mg PO DAILY 05/06/24 07/04/24 History omeprazole 20 mg capsule,delayed 20 mg PO BID 05/08/24 07/04/24 History release semaglutide 0.25 mg or 0.5 mg (2 0.5 mg subcut QWEEK 05/08/24 07/04/24 History mg/1.5 mL) subcutaneous pen injector (Ozempic) gabapentin 300 mg capsule See Rx Instructions PO BID #360 05/09/24 07/04/24 Rx caps trazodone 150 mg tablet 150 mg PO HS 07/04/24 07/04/24 History Processed by: Pharmacy Medications reviewed in ED?: No Medication History completed: Yes Patient Interview: Completed Secondary Source(s): Pharmacy records and Insurance records [facility] Statement: As the person ultimately responsible for medication therapy, providers are able to order a medication from an existing home medication list in [facility] via the "Reconcile Routine" prior to Confirmation of that medication by support group manager. Such practice is discouraged except when the physician, in their clinical judgment, deems that a medical need exists for a medication without regard to previous use.
--- NOTE | 2024-07-04 17:03 | XRAY Report ---
PROCEDURE: [place] OR C-Arm Procedure INDICATIONS: Surgical Procedure FLUORO TIME: 0.01 MIN [id number] TECHNIQUE: Intraoperative fluoroscopic images were acquired. COMPARISON: CT abdomen pelvis 07/03/2024 FINDINGS: Labeled right image demonstrates catheter presumed ureterovesicular stent. There is dilation of the l abeled right renal collecting system. IMPRESSION: Intraoperative pyelogram. Reviewed by: Asiya Gallego MD on 07/04/2024 5:02 PM PDT Approved by: Asiya Gallego MD on 07/04/2024 5:02 PM PDT Station ID: [id number]
[2024-07-04] MEDS ORDERED: diphenhydrAMINE 25 MG CAPSULE PO PRN (19:59)
[2024-07-04] MEDS: guaiFENesin/DEXTROMETHORPHAN 10 ML UDC PO PRN (20:37)
[2024-07-04] MEDS: MELATONIN 3 MG TABLET PO SCH (20:37)
[2024-07-04] MEDS: traZODone 50 MG TABLET PO SCH (21:46)
[2024-07-05] MEDS: BENZONATATE 100 MG CAPSULE PO PRN (03:58)
[2024-07-05 05:06] LABS: BASOPHILS % (AUTO) 0.2 %; HCT - HEMATOCRIT 32.2 % (37.0-47.0); HGB - HEMOGLOBIN 9.9 g/dL (12.0-16.0); LYMPHOCYTES % (AUTO) 9.9 %; MEAN CORPUSCULAR HEMOGLOBIN 28.5 pg (27.0-31.0); MEAN CORPUSCULAR HGB CONC 30.7 g/dL (32.0-36.0); MEAN CORPUSCULAR VOLUME 92.8 fL (81.0-99.0); MEAN PLATELET VOLUME 10.2 fL (7.9-10.8); MONOCYTES % (AUTO) 3.1 %; NEUTROPHILS % (AUTO) 85.8 %; PLT - PLATELET COUNT 297 10^3/uL (130-450); RED BLOOD COUNT 3.47 10^6/uL (4.20-5.40); RED CELL DISTRIBUTION WIDTH 13.7 % (12.0-15.0); WHITE BLOOD COUNT 27.2 x10^3/uL (4.8-10.8)
[2024-07-05 05:08] LABS: CALCIUM, IONIZED 1.12 mmol/L (1.09-1.30); VBG PH 7.415 (7.31-7.41)
[2024-07-05 05:09] LABS: ABNORMAL LYMPHS % (MANUAL) 0 %
[2024-07-05 05:20] LABS: CALCIUM 7.8 mg/dL (8.5-10.3); CREATININE 1.3 mg/dL (0.6-1.3); MAGNESIUM 2.5 mg/dL (1.7-2.3); PHOSPHORUS 2.5 mg/dL (2.5-5.0); POTASSIUM 4.7 mmol/L (3.5-4.5)
[2024-07-05 05:28] LABS: BAND NEUTROPHILS % (MANUAL) 10 %; LYMPHOCYTES # (MANUAL) 2.7 10^3/uL (1.5-3.5); LYMPHOCYTES % (MANUAL) 10 %; MONOCYTES # (MANUAL) 0.5 10^3/uL (0.0-1.0); NEUTROPHILS # (MANUAL) 23.9 10^3/uL (1.5-6.6)
[2024-07-05 05:29] LABS: DIFFERENTIAL COMMENT MANUAL DIFFERENTIAL; PLATELET ESTIMATE, MANUAL NORMAL (130-450,000) (NORMAL); PLATELET MORPHOLOGY NORMAL APPEARANCE (NORMAL); RBC MORPHOLOGY (MULTIPLE) NORMAL APPEARANCE (NORMAL); WBC MORPHOLOGY (MULTIPLE) TOXIC VACUOLATION (NORMAL)
[2024-07-05] MEDS: ONDANSETRON 4 MG/2 ML VIAL IVP PRN (09:31)
[2024-07-05] MEDS: NEUTRA-PHOS 250 MG TABLET PO SCH (12:47)
[2024-07-05] MEDS: ACETAMINOPHEN 325 MG TABLET PO PRN (15:05)
[2024-07-05] MEDS: oxyCODONE 5 MG TABLET PO PRN ×2 (15:06→22:20)
--- NOTE | 2024-07-05 16:57 | PROVIDER PROGRESS NOTE ---
Subjective Prog Note Date Prog Note Date: 07/05/24 Prog Note Time: 15:00 Subjective Subjective: Patient was seen throughout the day yesterday and feeling significantly better after the stent placement. However this morning she started to develop wheezing, and is generally a bit more lethargic. She denies any abdominal pain. Current Medications Current Medications Current Medications: Current Medications Generic Name Dose Route Start Last Admin Trade Name Freq PRN Reason Stop Dose Admin Acetaminophen 650 mg 07/04/24 03:23 07/05/24 15:05 Acetaminophen 325 Mg Tablet PO 650 mg Q4HR PRN Administration Pain 1 to 4, or Fever Benzonatate 100 mg 07/04/24 20:06 07/05/24 03:58 Benzonatate 100 Mg Capsule PO 100 mg TID PRN Administration Cough Diphenhydramine HCl 25 mg 07/04/24 19:59 Diphenhydramine 25 Mg Capsule PO QPM PRN Insomnia Guaifenesin 10 ml 07/04/24 20:06 07/04/24 20:37 Guaifenesin/Dextromethorphan 10 Ml Udc PO 10 ml Q6HR PRN Administration Cough Heparin Sodium (Porcine) 5,000 unit 07/04/24 09:00 07/05/24 09:58 Heparin 5,000 Unit/Ml Vial SUBQ Not Given BID NATALIE Hydromorphone HCl 0.5 mg 07/04/24 03:07/05/24 12:47 Hydromorphone 0.5 Mg/0.5 Ml Syringe IVP 0.5 mg Q2H PRN Administration Pain 8 to 10 Piperacillin Sod/Tazobactam 100 mls @ 200 mls/hr 07/04/24 04:00 07/05/24 15:06 Sod 3.375 gm/ Sodium Chloride IV 200 mls/hr Q6H NATALIE Administration Insulin Human Lispro 1 - 9 unit 07/04/24 12:00 07/05/24 12:45 Insulin Lispro 300 Unit/3 Ml Pen SUBQ Not Given 0800,1200,1700,2100 [facility] Protocol Melatonin 3 mg 07/04/24 21:00 07/04/24 20:37 Melatonin 3 Mg Tablet PO Not Given QPM NATALIE Ondansetron HCl 4 mg 07/04/24 03:23 07/05/24 09:31 Ondansetron 4 Mg/2 Ml Vial IVP 4 mg Q6HR PRN Administration Nausea / Vomiting Oxycodone HCl 5 mg 07/05/24 12:57 07/05/24 15:06 Oxycodone 5 Mg Tablet PO 5 mg Q4HR PRN Administration Moderate Pain (Level 4-6) Oxycodone HCl 10 mg 07/05/24 12:57 Oxycodone 5 Mg Tablet PO Q4HR PRN Severe Pain (Level 7-10) Sodium Chloride 10 ml 07/04/24 09:00 07/05/24 09:31 Sodium Chloride Flush 0.9% 10 Ml Syringe IVP 10 ml 0100,0900,1700 NATALIE Administration Sodium Chloride 10 ml 07/04/24 03:23 Sodium Chloride Flush 0.9% 10 Ml Syringe IVP PRN PRN NEEDED PER PROVIDER ORDERS Trazodone HCl 150 mg 07/04/24 21:00 07/04/24 21:46 Trazodone 50 Mg Tablet PO 150 mg HS NATALIE Administration Objective Vital Signs/Intake & Output Reviewed Vital Signs: Yes Vital Signs: Vital Signs x48h Temp Pulse Resp BP Pulse Ox O2 Flow Rate 07/05/24 14:30 38.3 C H 07/05/24 14:00 108 H 20 141/111 H 93 1 07/05/24 12:32 114/98 H 07/05/24 12:00 25 L 25 H 91 L 07/05/24 11:18 79 21 141/85 H 93 07/05/24 10:07 85 20 144/80 H 93 07/05/24 09:02 89 19 155/109 H 93 Intake & Output: Intake & Output 07/02/24 07/03/24 07/04/24 07/05/24 23:59 23:59 23:59 23:59 Intake Total 8052 / 8052 2550 / 2550 Output Total 1900 / 1900 1400 / 1400 Balance 6152 / 6152 1150 / 1150 Weight (kg) 83.5 kg 96.5 kg 88.5 kg Objective General Appearance: positive No acute distress, Alert and Lethargic (Patient was woken up for the exam and is somewhat lethargic but responsive and arousable) Eyes Bilateral: positive EOMI Respiratory: positive No respiratory distress, Wheezes (Wheezes sound more upper respiratory, lung parekh are relatively clear) and Other (Patient is on nasal cannula oxygen at 2 L); negative Rhonchi Cardiovascular: positive Regular rate & rhythm, No murmur and No gallop Abdomen: positive Non-tender, No organomegaly, Nml bowel sounds and No distention Skin: positive Color nml Extremities: negative Pedal edema Neurologic/Psychiatric: positive Oriented x3 and CN's nml (2-12) Lab Results 07/05/24 04:53 07/05/24 04:53 Other Labs: Lab Results x24hrs 07/05/24 07/05/24 07/05/24 Range/Units 14:40 12:12 07:44 WBC (4.8-10.8) x10^3/uL RBC (4.20-5.40) 10^6/uL Hgb (12.0-16.0) g/dL Hct (37.0-47.0) % MCV (81.0-99.0) fL MCH (27.0-31.0) pg MCHC (32.0-36.0) g/dL RDW (12.0-15.0) % Plt Count (130-450) 10^3/uL MPV (7.9-10.8) fL Neut # (Auto) Lymph # (Auto) Dare # (Auto) Eos # (Auto) Baso # (Auto) Absolute Nucleated RBC Total Counted Band Neuts % (Manual) (0 - 10) % Abnorm Lymph % (Manual) % Nucleated RBC % Neutrophils # (Manual) (1.5-6.6) 10^3/uL Lymphocytes # (Manual) (1.5-3.5) 10^3/uL Monocytes # (Manual) (0.0-1.0) 10^3/uL Eosinophils # (Manual) (0-0.7) 10^3/uL Basophils # (Manual) (0-0.1) 10^3/uL Differential Comment WBC Morphology (NORMAL) Platelet Estimate (NORMAL) Platelet Morphology (NORMAL) RBC Morph Micro Appear (NORMAL) VBG pH (7.31-7.41) Ionized Calcium (1.09-1.30) mmol/L Sodium (135-145) mmol/L Potassium (3.5-4.5) mmol/L Chloride (101-111) mmol/L Carbon Dioxide (21-32) mmol/L Anion Gap (6-13) BUN (6-20) mg/dL Creatinine (0.6-1.3) mg/dL Estimated GFR (MDRD) (>89) Glucose (74-104) mg/dL POC Whole Bld Glucose 128 113 90 (70-100) mg/dL Calcium (8.5-10.3) mg/dL Phosphorus (2.5-5.0) mg/dL Magnesium (1.7-2.3) mg/dL 07/05/24 07/04/24 07/04/24 Range/Units 04:53 20:29 17:04 WBC 27.2 H (4.8-10.8) x10^3/uL RBC 3.47 L (4.20-5.40) 10^6/uL Hgb 9.9 L (12.0-16.0) g/dL Hct 32.2 L (37.0-47.0) % MCV 92.8 (81.0-99.0) fL MCH 28.5 (27.0-31.0) pg MCHC 30.7 L (32.0-36.0) g/dL RDW 13.7 (12.0-15.0) % Plt Count 297 (130-450) 10^3/uL MPV 10.2 (7.9-10.8) fL Neut # (Auto) Not Reportable Lymph # (Auto) Not Reportable Dare # (Auto) Not Reportable Eos # (Auto) Not Reportable Baso # (Auto) Not Reportable Absolute Nucleated RBC Not Reportable Total Counted 100 Band Neuts % (Manual) 10 (0 - 10) % Abnorm Lymph % (Manual) 0 % Nucleated RBC % Not Reportable Neutrophils # (Manual) 23.9 H (1.5-6.6) 10^3/uL Lymphocytes # (Manual) 2.7 (1.5-3.5) 10^3/uL Monocytes # (Manual) 0.5 (0.0-1.0) 10^3/uL Eosinophils # (Manual) 0.0 (0-0.7) 10^3/uL Basophils # (Manual) 0.0 (0-0.1) 10^3/uL Differential Comment MANUAL DIFFERENTIAL WBC Morphology TOXIC VACUOLATION (NORMAL) Platelet Estimate NORMAL (130-450,000) (NORMAL) Platelet Morphology NORMAL APPEARANCE (NORMAL) RBC Morph Micro Appear NORMAL APPEARANCE (NORMAL) VBG pH 7.415 H (7.31-7.41) Ionized Calcium 1.12 (1.09-1.30) mmol/L Sodium 142 (135-145) mmol/L Potassium 4.7 H (3.5-4.5) mmol/L Chloride 114 H (101-111) mmol/L Carbon Dioxide 24 (21-32) mmol/L Anion Gap 4.0 L (6-13) BUN 18 (6-20) mg/dL Creatinine 1.3 (0.6-1.3) mg/dL Estimated GFR (MDRD) 40 L (>89) Glucose 121 H (74-104) mg/dL POC Whole Bld Glucose 168 152 (70-100) mg/dL Calcium 7.8 L (8.5-10.3) mg/dL Phosphorus 2.5 (2.5-5.0) mg/dL Magnesium 2.5 H (1.7-2.3) mg/dL Diagnostic Imaging Diagnostic Imaging Results: positive Final report reviewed ABX Reporting Has patient been on IV antibiotics over the past 48 hours?: Yes Sepsis Event Note (H) Evaluation Current Stage of Sepsis: Septic shock Possible source of Sepsis: positive Genitourinary Sepsis Criteria Sepsis Criteria: Recorded Heart Rate greater than 90 bpm, MAP less than 65 mmHg, SBP less than 90 mmHg and Metabolic: lactate > 2 mmol/L Assessment/Plan Problem List (1) E. coli bacteremia: Impression: * Secondary to urinary tract infection source secondary to impacted renal stone which has now been addressed and stent placed * Continue IV Zosyn pending clinical course, may ultimately be able to transition to p.o. antibiotics if patient is afebrile, with no leukocytosis and otherwise clinically improved (2) Hydronephrosis with urinary obstruction due to ureteral calculus: Impression: * Significantly improved * Sepsis resolved * Urinalysis confirms E. coli * Sensitivity pending * Leukocytosis improved * Patient afebrile * Continue Zosyn * Follow-up sensitivities * Repeat blood culture in a.m. (3) Sepsis: Impression: * Sepsis resolved * Lactic acidosis resolved * Hemodynamically stable * Continue plan as above Qualifiers: Sepsis acute organ dysfunction status: without acute organ dysfunction Sepsis type: sepsis due to unspecified organism Qualified Code(s): A41.9 - Sepsis, unspecified organism (4) Acute pyelonephritis: Impression: * As above (5) Type 2 diabetes mellitus with peripheral neuropathy: Impression: * Blood sugar reasonably well-controlled * Continue insulin sliding scale * Continue diabetic diet (6) Flu: Impression: * Patient tested positive for flu but states symptoms have been going on for more than 2 weeks * Unlikely to benefit from Tamiflu given timeline * Cont supportive care * Patient developed wheezing today with very mild hypoxia on 1 L oxygen currently * DC IV fluids * Lungs relatively clear, wheezing seems to be primarily upper airway * Patient denies history of COPD or asthma so for now I will defer as needed nebulizers given she is not in any respiratory distress * Pending clinical course consider repeat chest x-ray if patient does not improve by the morning
[2024-07-06 06:32] LABS: VBG PH 7.469 (7.31-7.41)
[2024-07-06 06:34] LABS: BASOPHILS % (AUTO) 0.1 %; EOSINOPHILS % (AUTO) 0.1 %; HGB - HEMOGLOBIN 10.4 g/dL (12.0-16.0); LYMPHOCYTES # (AUTO) 2.1 10^3/uL (1.5-3.5); LYMPHOCYTES % (AUTO) 12.2 %; MEAN CORPUSCULAR HEMOGLOBIN 29.5 pg (27.0-31.0); MEAN CORPUSCULAR HGB CONC 32.5 g/dL (32.0-36.0); MEAN CORPUSCULAR VOLUME 90.9 fL (81.0-99.0); MEAN PLATELET VOLUME 10.3 fL (7.9-10.8); MONOCYTES # (AUTO) 0.3 10^3/uL (0.0-1.0); MONOCYTES % (AUTO) 1.5 %; NEUTROPHILS # (AUTO) 14.5 10^3/uL (1.5-6.6); NEUTROPHILS % (AUTO) 85.7 %; PLT - PLATELET COUNT 260 10^3/uL (130-450); RED BLOOD COUNT 3.52 10^6/uL (4.20-5.40); RED CELL DISTRIBUTION WIDTH 13.9 % (12.0-15.0); WHITE BLOOD COUNT 16.9 x10^3/uL (4.8-10.8)
[2024-07-06 06:41] LABS: CALCIUM 7.7 mg/dL (8.5-10.3); CREATININE 1.2 mg/dL (0.6-1.3); MAGNESIUM 1.9 mg/dL (1.7-2.3); PHOSPHORUS 2.2 mg/dL (2.5-5.0); POTASSIUM 3.8 mmol/L (3.5-4.5)
--- NOTE | 2024-07-06 06:43 | XRAY Report ---
PROCEDURE: XR Chest 1V INDICATIONS: shortness of breath TECHNIQUE: One view of the chest was acquired. COMPARISON: 07/03/2024 FINDINGS AND IMPRESSION: Lung volumes are lower. Increased moderate diffuse interstitial opacities likely edema or infection. No drainable effusions. Pulmonary nodule better seen on recent chest CT. Surveillance imaging recommended. Overall normal heart size. Aortic calcifications. Degenerative osseous changes. Reviewed by: Dmitry Mott MD on 07/06/2024 6:42 AM PDT Approved by: Dmitry Mott MD on 07/06/2024 6:42 AM PDT Station ID: [id number]
[2024-07-06] MEDS ORDERED: FUROSEMIDE 40 MG/4 ML VIAL ONE (10:01)
[2024-07-06] MEDS: FUROSEMIDE 40 MG/4 ML VIAL IVP SCH (10:07)
[2024-07-06] MEDS: IPRATROPIUM/ALBUTEROL 3 ML NEB INH PRN (11:40)
--- NOTE | 2024-07-06 13:03 | PROVIDER PROGRESS NOTE ---
Subjective Prog Note Date Prog Note Date: 07/06/24 Prog Note Time: 10:02 Subjective Pt reports feeling: Improved Subjective: Patient is generally feeling better but today started having some diarrhea. She denies any abdominal pain and reports breathing is improved. Current Medications Current Medications Current Medications: Current Medications Generic Name Dose Route Start Last Admin Trade Name Freq PRN Reason Stop Dose Admin Acetaminophen 650 mg 07/04/24 03:23 07/06/24 05:20 Acetaminophen 325 Mg Tablet PO 650 mg Q4HR PRN Administration Pain 1 to 4, or Fever Albuterol/Ipratropium 3 ml 07/06/24 06:18 07/06/24 11:40 Ipratropium/Albuterol 3 Ml Neb INH 3 ml Q4HR PRN Administration Wheezing Benzonatate 100 mg 07/04/24 20:06 07/05/24 03:58 Benzonatate 100 Mg Capsule PO 100 mg TID PRN Administration Cough Diphenhydramine HCl 25 mg 07/04/24 19:59 Diphenhydramine 25 Mg Capsule PO QPM PRN Insomnia Furosemide 40 mg 07/07/24 09:00 Furosemide 40 Mg/4 Ml Vial IVP DAILY NATALIE Guaifenesin 10 ml 07/04/24 20:06 07/04/24 20:37 Guaifenesin/Dextromethorphan 10 Ml Udc PO 10 ml Q6HR PRN Administration Cough Heparin Sodium (Porcine) 5,000 unit 07/04/24 09:00 07/06/24 09:12 Heparin 5,000 Unit/Ml Vial SUBQ Not Given BID NATALIE Hydromorphone HCl 0.5 mg 07/04/24 03:23 07/05/24 12:47 Hydromorphone 0.5 Mg/0.5 Ml Syringe IVP 0.5 mg Q2H PRN Administration Pain 8 to 10 Piperacillin Sod/Tazobactam 100 mls @ 200 mls/hr 07/04/24 04:00 07/06/24 10:10 Sod 3.375 gm/ Sodium Chloride IV Infused Q6H [facility] Infusion Insulin Human Lispro 1 - 9 unit 07/04/24 12:00 07/06/24 11:38 Insulin Lispro 300 Unit/3 Ml Pen SUBQ Not Given 0800,1200,1700,2100 [facility] Protocol Melatonin 3 mg 07/04/24 21:00 07/05/24 22:08 Melatonin 3 Mg Tablet PO Not Given QPM NATALIE Ondansetron HCl 4 mg 07/04/24 03:23 07/05/24 09:31 Ondansetron 4 Mg/2 Ml Vial IVP 4 mg Q6HR PRN Administration Nausea / Vomiting Oxycodone HCl 5 mg 07/05/24 12:57 07/05/24 15:06 Oxycodone 5 Mg Tablet PO 5 mg Q4HR PRN Administration Moderate Pain (Level 4-6) Oxycodone HCl 10 mg 07/05/24 12:57 07/05/24 22:20 Oxycodone 5 Mg Tablet PO 10 mg Q4HR PRN Administration Severe Pain (Level 7-10) Sodium Chloride 10 ml 07/04/24 09:00 07/06/24 09:33 Sodium Chloride Flush 0.9% 10 Ml Syringe IVP 10 ml 0100,0900,1700 NATALIE Administration Sodium Chloride 10 ml 07/04/24 03:23 Sodium Chloride Flush 0.9% 10 Ml Syringe IVP PRN PRN NEEDED PER PROVIDER ORDERS Trazodone HCl 150 mg 07/04/24 21:00 07/05/24 22:20 Trazodone 50 Mg Tablet PO 150 mg HS NATALIE Administration Objective Vital Signs/Intake & Output Reviewed Vital Signs: Yes Vital Signs: Vital Signs x48h Temp Pulse Pulse Pulse Resp BP Pulse Ox 07/06/24 11:40 75 22 07/06/24 11:36 36.3 C L 86 20 148/78 H 94 07/06/24 07:25 36.4 C L 86 22 147/79 H 95 07/06/24 07:00 07/06/24 05:38 36.8 C 96 22 129/85 96 O2 Flow Rate 07/06/24 11:40 07/06/24 11:36 07/06/24 07:25 4 07/06/24 07:00 2 07/06/24 05:38 4 Intake & Output: Intake & Output 07/03/24 07/04/24 07/05/24 07/06/24 23:59 23:59 23:59 23:59 Intake Total 8052 / 8052 4370 / 4370 440 / 440 Output Total 1900 / 1900 1600 / 1600 1301 / 1301 Balance 6152 / 6152 2770 / 2770 -861 / -861 Weight (kg) 83.5 kg 96.5 kg 88.5 kg 88.5 kg Objective General Appearance: positive No acute distress, Alert and Lethargic (Patient was woken up for the exam and is somewhat lethargic but responsive and arousable) Eyes Bilateral: positive EOMI Respiratory: positive No respiratory distress and Other (Patient is on nasal cannula oxygen at 2 L); negative Rhonchi Cardiovascular: positive Regular rate & rhythm, No murmur and No gallop Abdomen: positive Non-tender, No organomegaly, Nml bowel sounds and No distention Skin: positive Color nml Extremities: negative Pedal edema Neurologic/Psychiatric: positive Oriented x3 and CN's nml (2-12) Lab Results 07/06/24 06:15 07/06/24 06:15 Other Labs: Lab Results x24hrs 07/06/24 07/06/24 07/06/24 Range/Units 11:26 07:31 06:15 WBC 16.9 H (4.8-10.8) x10^3/uL RBC 3.52 L (4.20-5.40) 10^6/uL Hgb 10.4 L (12.0-16.0) g/dL Hct 32.0 L (37.0-47.0) % MCV 90.9 (81.0-99.0) fL MCH 29.5 (27.0-31.0) pg MCHC 32.5 (32.0-36.0) g/dL RDW 13.9 (12.0-15.0) % Plt Count 260 (130-450) 10^3/uL MPV 10.3 (7.9-10.8) fL Neut # (Auto) 14.5 H (1.5-6.6) 10^3/uL Lymph # (Auto) 2.1 (1.5-3.5) 10^3/uL [place] # (Auto) 0.3 (0.0-1.0) 10^3/uL Eos # (Auto) 0.0 (0.0-0.7) 10^3/uL Baso # (Auto) 0.0 (0.0-0.1) 10^3/uL Absolute Nucleated RBC 0.00 x10^3/uL Nucleated RBC % 0.0 /100WBC VBG pH 7.469 H (7.31-7.41) Ionized Calcium 1.10 (1.09-1.30) mmol/L Sodium 143 (135-145) mmol/L Potassium 3.8 (3.5-4.5) mmol/L Chloride 112 H (101-111) mmol/L Carbon Dioxide 24 (21-32) mmol/L Anion Gap 7.0 (6-13) BUN 16 (6-20) mg/dL Creatinine 1.2 (0.6-1.3) mg/dL Estimated GFR (MDRD) 44 L (>89) Glucose 106 H (74-104) mg/dL POC Whole Bld Glucose 137 97 (70-100) mg/dL Calcium 7.7 L (8.5-10.3) mg/dL Phosphorus 2.2 L (2.5-5.0) mg/dL Magnesium 1.9 (1.7-2.3) mg/dL 07/05/24 07/05/24 07/05/24 Range/Units 20:30 17:11 14:40 WBC (4.8-10.8) x10^3/uL RBC (4.20-5.40) 10^6/uL Hgb (12.0-16.0) g/dL Hct (37.0-47.0) % MCV (81.0-99.0) fL MCH (27.0-31.0) pg MCHC (32.0-36.0) g/dL RDW (12.0-15.0) % Plt Count (130-450) 10^3/uL MPV (7.9-10.8) fL Neut # (Auto) (1.5-6.6) 10^3/uL Lymph # (Auto) (1.5-3.5) 10^3/uL [place] # (Auto) (0.0-1.0) 10^3/uL Eos # (Auto) (0.0-0.7) 10^3/uL Baso # (Auto) (0.0-0.1) 10^3/uL Absolute Nucleated RBC x10^3/uL Nucleated RBC % /100WBC VBG pH (7.31-7.41) Ionized Calcium (1.09-1.30) mmol/L Sodium (135-145) mmol/L Potassium (3.5-4.5) mmol/L Chloride (101-111) mmol/L Carbon Dioxide (21-32) mmol/L Anion Gap (6-13) BUN (6-20) mg/dL Creatinine (0.6-1.3) mg/dL Estimated GFR (MDRD) (>89) Glucose (74-104) mg/dL POC Whole Bld Glucose 131 143 128 (70-100) mg/dL Calcium (8.5-10.3) mg/dL Phosphorus (2.5-5.0) mg/dL Magnesium (1.7-2.3) mg/dL Diagnostic Imaging Diagnostic Imaging Results: positive Final report reviewed Sepsis Event Note (H) Evaluation Current Stage of Sepsis: Septic shock Possible source of Sepsis: positive Genitourinary Sepsis Criteria Sepsis Criteria: Recorded Heart Rate greater than 90 bpm, MAP less than 65 mmHg, SBP less than 90 mmHg and Metabolic: lactate > 2 mmol/L Assessment/Plan Problem List (1) E. coli bacteremia: Impression: * Secondary to urinary tract infection source secondary to impacted renal stone which has now been addressed and stent placed * Continue IV Zosyn pending clinical course, may ultimately be able to transition to p.o. antibiotics if patient is afebrile, with no leukocytosis and otherwise clinically improved (2) Hydronephrosis with urinary obstruction due to ureteral calculus: Impression: * Significantly improved * Sepsis resolved * Urinalysis confirms E. coli * Sensitivity pending * Leukocytosis improved * Patient afebrile * Continue Zosyn * Follow-up sensitivities * Repeat blood culture in a.m. (3) Sepsis: Impression: * Sepsis resolved * Lactic acidosis resolved * Hemodynamically stable * Continue plan as above Qualifiers: Sepsis acute organ dysfunction status: without acute organ dysfunction Sepsis type: sepsis due to unspecified organism Qualified Code(s): A41.9 - Sepsis, unspecified organism (4) Acute pyelonephritis: Impression: * As above (5) Type 2 diabetes mellitus with peripheral neuropathy: Impression: * Blood sugar reasonably well-controlled * Continue insulin sliding scale * Continue diabetic diet (6) Flu: Impression: * Patient tested positive for flu but states symptoms have been going on for more than 2 weeks * Unlikely to benefit from Tamiflu given timeline * Cont supportive care * Patient developed wheezing today with very mild hypoxia on 1 L oxygen currently * DC'd IV fluids * Lungs relatively clear, wheezing seems to be primarily upper airway * Patient denies history of COPD or asthma so for now I will defer as needed nebulizers given she is not in any respiratory distress * Pending clinical course consider repeat chest x-ray if patient does not improve by the morning * Given recent SOB, will check echo (7) Diarrhea: Impression: * Possible infectious vs abx induced * Will check stool culture, c. diff PCR
[2024-07-07] MEDS: SODIUM CHLORIDE FLUSH 0.9% 10 ML SYRINGE IVP PRN (05:21)
[2024-07-07 06:09] LABS: BASOPHILS % (AUTO) 0.2 %; EOSINOPHILS # (AUTO) 0.1 10^3/uL (0.0-0.7); EOSINOPHILS % (AUTO) 0.4 %; HCT - HEMATOCRIT 32.4 % (37.0-47.0); HGB - HEMOGLOBIN 10.3 g/dL (12.0-16.0); LYMPHOCYTES # (AUTO) 2.9 10^3/uL (1.5-3.5); MEAN CORPUSCULAR HEMOGLOBIN 28.8 pg (27.0-31.0); MEAN CORPUSCULAR HGB CONC 31.8 g/dL (32.0-36.0); MEAN CORPUSCULAR VOLUME 90.5 fL (81.0-99.0); MEAN PLATELET VOLUME 10.3 fL (7.9-10.8); MONOCYTES # (AUTO) 0.6 10^3/uL (0.0-1.0); MONOCYTES % (AUTO) 4.5 %; NEUTROPHILS # (AUTO) 9.6 10^3/uL (1.5-6.6); NEUTROPHILS % (AUTO) 72.4 %; PLT - PLATELET COUNT 284 10^3/uL (130-450); RED BLOOD COUNT 3.58 10^6/uL (4.20-5.40); RED CELL DISTRIBUTION WIDTH 13.3 % (12.0-15.0); WHITE BLOOD COUNT 13.3 x10^3/uL (4.8-10.8)
[2024-07-07 06:21] LABS: CALCIUM 7.9 mg/dL (8.5-10.3); CREATININE 1.1 mg/dL (0.6-1.3); POTASSIUM 3.3 mmol/L (3.5-4.5)
[2024-07-07 07:09] LABS: ADENOVIRUS F 40/41 Not Detected (Not Detected); ASTROVIRUS Not Detected (Not Detected); C DIFFICILE TOXIN A/B Not Detected (Not Detected); CAMPYLOBACTER Not Detected (Not Detected); CRYPTOSPORIDIUM Not Detected (Not Detected); CYCLOSPORA CAYETANENSIS Not Detected (Not Detected); ENTAMOEBA HISTOLYTICA Not Detected (Not Detected); ENTEROAGGREGATIVE E COLI Not Detected (Not Detected); ENTEROPATHOGENIC E COLI Not Detected (Not Detected); ENTEROTOXIGENIC E COLI Not Detected (Not Detected); GIARDIA LAMBLIA Not Detected (Not Detected); NOROVIRUS GI/GII Not Detected (Not Detected); PLESIOMONAS SHIGELLOIDES Not Detected (Not Detected); ROTAVIRUS A Not Detected (Not Detected); SALMONELLA Not Detected (Not Detected); SAPOVIRUS Not Detected (Not Detected); SHIGA-TOXIN-PRODUCING E COLI Not Detected (Not Detected); SHIGELLA/ENTEROINVASIVE E COLI Not Detected (Not Detected); VIBRIO Not Detected (Not Detected); VIBRIO CHOLERAE Not Detected (Not Detected); YERSINIA ENTEROCOLITICA Not Detected (Not Detected)
[2024-07-07 08:10] VITALS: BP 155/86; TEMP 96.8; O2SAT 90
[2024-07-07] MEDS: POTASSIUM CHLORIDE 20 MEQ TABLET PO ONE (09:16)
[2024-07-07] MEDS: FUROSEMIDE 40 MG/4 ML VIAL IVP SCH (09:21)
[2024-07-07] MEDS: LACTOBACILLUS RHAMNOSUS GG CAPSULE PO SCH (09:44)
[2024-07-07] MEDS: LOPERAMIDE 2 MG CAPSULE PO PRN (09:44)
--- NOTE | 2024-07-07 13:08 | Discharge Summary ---
"Discharge Summary Admit Date: 07/04/24 Discharge Date: 07/07/24 Discharging Provider: Dr Tito Donahue Code Status: Attempt Resuscitation DIAGNOSES Admission Diagnoses: Septic shock Obstructive uropathy Pyelonephritis Acute kidney injury Type 2 diabetes Hypertension Hyperlipidemia GERD Pulmonary nodule HPI History of Present Illness: Ms Cobian is a 73-year-old female with history of type 2 diabetes, hypertension, hyperlipidemia, obstructive sleep apnea, GERD, insomnia, presents to ER with complaint of generalized weakness, cough and diarrhea. Onset of symptoms ~2 weeks ago when she had a GI illness, diarrhea. She has been having fevers the past 2-3 days, T 102 yesterday and per daughter patient was confused so she called EMS. In the ER she was found to have abdominal tenderness, CT abd/pelvis was obtained and showed R ureteral stones with R hydronephrosis. CTA chest negative for PE. Urology consulted and patient was taken to OR emergently, she is now status post cystoscopy and R ureteral stent placement. Borderline low blood pressures in ER, received total 2 L IV fluid boluses pre- op. Pressors were ordered but have not yet started. She received additional 500 cc IV fluid bolus intra-op. Patient is seen postoperatively in PACU, she is tachycardic low 100s, MAP ~60, administering additional IV fluid bolus with plan to place central line and initiate pressor support. Patient feels ok, but is having pain. She denies fevers/chills at this time, denies palpitations, chest pain. Limited history as patient is currently in PACU, feels tired and in pain, her daughter is with her at bedside. CONSULTS | PROCEDURES Consultations: Dr. Plummer-urology Procedures: Ureteral stent placement Right side HOSPITAL COURSE Hospital Course: After her evaluation in the ED confirmed her diagnosis of sepsis with obstructing renal stone in the right ureter, she was emergently taken to the operating room by urology for a placement of a right ureteral stent as well as being placed on IV antibiotics with IV fluids commensurate with sepsis protocol.She tolerated the procedure well and was then taken to ICU for close observation. She was treated with IV Zosyn.Her hospital course then progressed to medical management of UTI with blood culture and urine culture follow-up. Microbiology then confirmed presence of E. coli in both urine and blood which was pansensitive. Because of her significant sepsis on admission and her history of type 2 diabetes, advanced age, as well as initial BERNARDA, she was kept initially on IV antibiotics for total of 4 days.Her WBC trended downward throughout the hospital stay. On the day of discharge, 07/07/2024, the patient was feeling much better and was requesting to go home. I did inform her that my initial plan was to keep her in the hospital until her white blood cell count was normal so that I could transition her to p.o. antibiotics for the treatment of her E. coli bacteremia however she did feel like she would like to go home and I agreed that it would be reasonable giving that she was clinically well, afebrile, with a significant improvement in her leukocytosis with a nearly normal WBC of 13, and her good compliance and access to return to the emergency room or follow-up. She will be discharged home on p.o. Cipro for 5 more days of antibiotic coverage. She will then follow-up with her PCP for repeat lab work to include a CBC to confirm resolution of the leukocytosis. She will then schedule an appointment for Dr. Plummer for definitive stone retrieval. CT scan on admission showed a right upper lobe solid pulmonary nodule measuring 1.1 x 1.0 mm with a recommendation to follow-up with a repeat chest CT in 3 months versus PET/CT. ALLERGIES Allergies Allergy/AdvReac Type Severity Reaction Status Date / Time Iodinated Contrast Media Allergy Hives Verified 12/17/22 13:12 (Iodinated Contrast Media - IV Dye) Sulfa (Sulfonamide Allergy Unknown Verified 12/17/22 13:12 Antibiotics) amoxicillin AdvReac Severe Diarrhea Verified 05/08/24 14:17 [email or web address] (From Ambien) AdvReac Severe epistaxis Verified 05/08/24 14:17 MEDICATIONS Ambulatory Orders Medication Instructions Recorded Confirmed atorvastatin 10 mg tablet 10 mg PO DAILY #90 tabs 01/30/24 07/04/24 losartan 50 mg tablet 50 mg PO DAILY 05/06/24 07/04/24 omeprazole 20 mg capsule,delayed 20 mg PO BID 05/08/24 07/04/24 release semaglutide 0.25 mg or 0.5 mg (2 0.5 mg subcut QWEEK 05/08/24 07/04/24 mg/1.5 mL) subcutaneous pen injector (Ozempic) gabapentin 300 mg capsule See Rx Instructions PO BID #360 05/09/24 07/04/24 caps trazodone 150 mg tablet 150 mg PO HS 07/04/24 07/04/24 Lactobacillus rhamnosus GG 10 1 cap PO DAILY #30 caps 07/07/24 billion cell capsule (Culturelle) ciprofloxacin HCl 500 mg tablet 500 mg PO BID 5 days #10 tabs 07/07/24 (Cipro) PHYSICAL EXAM AT DISCHARGE General Appearance: positive No acute distress and Alert Respiratory: positive No respiratory distress and Breath sounds nml; negative Chest non-tender or Wheezes Cardiovascular: positive Regular rate & rhythm, No murmur, No gallop and Irregularly irregular Abdomen: positive Non-tender, No organomegaly, Nml bowel sounds and No distention Skin: positive Color nml Extremities: positive Nml appearance Neurologic/Psychiatric: positive Oriented x3, CN's nml (2-12) and Motor nml LABS 07/07/24 05:37 07/07/24 05:37 DIAGNOSTIC IMAGING Diagnostic Imaging Results: Final report reviewed SEPSIS Current Stage of Sepsis: Septic shock Possible source of Sepsis: Genitourinary Sepsis Criteria: Recorded Heart Rate greater than 90 bpm, MAP less than 65 mmHg, SBP less than 90 mmHg and Metabolic: lactate > 2 mmol/L TIME SPENT Time Spent in Discharge (Minutes): 65 Discharge Plan Discharge Patient Disposition: 01 Home, Self Care Condition: Serious Medically Cleared Date:: 07/07/24 Prescriptions: New Culturelle 10 billion cell Capsule 1 cap PO DAILY Qty: 30 0RF ciprofloxacin HCl [Cipro] 500 mg tablet 500 mg PO BID 5 Days Qty: 10 0RF Continued atorvastatin 10 mg tablet 10 mg PO DAILY Qty: 90 3RF Ozempic 0.25 mg or 0.5 mg(2 mg/1.5 mL) pen injector 0.5 mg subcut QWEEK trazodone 150 mg tablet 150 mg PO HS Rx Instructions: Take 1 tablet by mouth at bedtime as needed losartan 50 mg tablet 50 mg PO DAILY omeprazole 20 mg capsule,delayed release(DR/EC) 20 mg PO BID gabapentin 300 mg capsule See Rx Instructions PO BID Qty: 360 3RF Rx Instructions: 300 mg AM + 900 mg PM orally twice a day; Discontinued celecoxib 100 mg capsule 100 mg PO BID Activity Restrictions: Activity as Tolerated Activity Restrictions/Additional Instructions: You have a ureteral stent in place. THIS MUST BE EXCHANGED OR REMOVED AND OTHERWISE MONITORED BY A UROLOGIST YOU MUST FOLLOWUP WITH DR PLUMMER OR ANOTHER UROLOGIST Diet: Diabetic Health Concerns: [place], when you were admitted to the hospital you were septic because you had a kidney stone blocking one of the tubes that drains your kidneys into the bladder. This led to a condition called sepsis which is basically a temporary state of how your body reacts to an infection. Soon after hospital admission your sepsis had resolved, but of course the infection was still there. It was significantly improved after Dr. Plummer put in a stent to allow the ureter, the tube that drains the kidney to the bladder, to function properly. After we got results of the urine and blood culture it was confirmed that you had an infection of both the urine and blood from a bacteria called E. coli. We have confirmed that we know which antibiotics to use to eradicate this infection and you have had the appropriate antibiotics every day since you have been admitted and you will need an additional 5 days of antibiotic to complete once you get home. The antibiotic is called Cipro and it should be taken twice a day with food. You should also follow-up with Dr. Plummer to discuss further treatment for the kidney stone. Print Language: [place] Patient Instructions: Stents Ureteral Stand Alone Forms: PCP List Follow-up Care: Jose Plummer MD [Provider Admit Priv/Credential] - (call to arrange followup with Dr Plummer next available after you are discharged) Rosmery Babb ARNP [Primary Care Provider] -"
== END 2024-07-07 14:28 | disposition home or self-care (01) | DRG 871 ==
LOC: ED 22:16 → SDS 07-04 01:13 → ICU 07-04 03:23 → MS2 07-05 21:40
PROVIDERS: ADMIT Student in an Organized Health Care Education/Training Program; ATTEND Urology
DX: E11.9 Type 2 diabetes mellitus without complications; Z79.85 Long-term (current) use of injectable non-insulin antidiabetic drugs; N13.6 Pyonephrosis; Z20.828 Contact with and (suspected) exposure to other viral communicable diseases; N17.9 Acute kidney failure, unspecified; G47.33 Obstructive sleep apnea (adult) (pediatric); R19.7 Diarrhea, unspecified; Z20.818 Contact with and (suspected) exposure to other bacterial communicable diseases; Z20.822 Contact with and (suspected) exposure to COVID-19; Z68.34 Body mass index [BMI] 34.0-34.9, adult; R05.9 Cough, unspecified; R06.02 Shortness of breath; E11.42 Type 2 diabetes mellitus with diabetic polyneuropathy; Z79.899 Other long term (current) drug therapy; A41.51 Sepsis due to Escherichia coli [E. coli]; A41.9 Sepsis, unspecified organism; E78.5 Hyperlipidemia, unspecified; I10 Essential (primary) hypertension; Z96.0 Presence of urogenital implants; J11.1 Influenza due to unidentified influenza virus with other respiratory manifestations; R65.21 Severe sepsis with septic shock; R53.1 Weakness; K21.9 Gastro-esophageal reflux disease without esophagitis; G47.00 Insomnia, unspecified; R91.1 Solitary pulmonary nodule; E66.9 Obesity, unspecified